=== PATIENT | female | born 1955 | race Caucasian/White ===

== ENCOUNTER → 2017-09-23 14:34 | Outpatient (CLI) | payer OTHER, SELFPAY ==
--- NOTE | 2017-09-23 | DI.MG.S_ITS ---
BILATERAL DIGITAL DIAGNOSTIC MAMMOGRAM 3D/2D: 09/23/2017 CLINICAL: Patient returns for 6 month follow up of right breast, due for bilateral exam. Comparison is made to exams dated: 01/27/2017 mammogram, 07/23/2016 mammogram, and 07/08/2016 mammogram - [facility]. The tissue of both breasts is heterogeneously dense. This may lower the sensitivity of mammography. Prior mammographic finding is no longer seen in the right breast. No significant masses, calcifications, or other findings are seen in either breast. IMPRESSION: NEGATIVE There is no mammographic evidence of malignancy. A 1 year screening mammogram is recommended. This exam was interpreted at Station ID: [id number]. NOTE: For mammograms, a report in lay terms will be sent to the patient. Approximately 15% of breast malignancies will not be visualized mammographically. In the management of a palpable breast mass, a negative mammogram must not discourage biopsy of a clinically suspicious lesion. Electronically Signed By: Umer valdez/loree:09/23/2017 15:56:39 letter sent: Normal Exam ACR BI-RADS Category 1: Negative 3341F
== END ==
PROVIDERS: PCP Family Medicine; Visit Provider Family Medicine
DX: R92.8 Other abnormal and inconclusive findings on diagnostic imaging of breast (principal)
CPT/HCPCS: 77066; G0279

== ENCOUNTER 2017-11-05 07:39 | Day surgery (SDC) | payer OTHER, SELFPAY ==
[2017-11-03 09:50] VITALS: BMI 26.2
[2017-11-05] VITALS (14 sets, daily range): BP systolic 70–113; BP diastolic 39–73; PULSE 32–72; RESP 12–17; TEMP 36.3–37; O2SAT 98–100; BMI 26.2
--- NOTE | 2017-11-05 | PATH_ITS ---
[facility] Accession Number: [id number] . 01 Material submitted: . ENDOMETRIAL POLYP AND ENDOMETRIAL CURRETAGE . 02 Diagnosis: Endometrial Curettings: Benign endometrial polyp, negative for atypia. [facility]/11/07/2017 . 02 Electronically signed: . Zac Valerio MD, Pathologist NPI- [id number] . 01 Gross description: . Received one formalin-filled container labeled with the patient's name and labeled endometrial polyp, endometrial curettage. The specimen consists of approximately a 0.5 cc aggregate of tissue and mucoid material, which is filtered, wrapped and entirely submitted in one cassette. ([facility] [place]:[id number]) /[facility] . 02 Pathologist provided ICD-10: N84.0 . 02 CPT . 470322 Performed at: 01 [facility] [address] [id number] MD Zak Zamora MD Phone: [phone] Performed at: 02 [facility] [address] [place] [id number] MD Simone Gray MD Phone: [phone]
[2017-11-05] MEDS: LACTATED RINGERS 1,000 ML 100 ML IV (08:10)
--- NOTE | 2017-11-05 08:33 | PM.PREOP ---
Pre-operative Note Interval Note Pre-op Check: Yes History & Physical Reviewed by Physician and Yes Exam Performed Changes: No
--- NOTE | 2017-11-05 08:44 | SUR.OPER ---
Lithotomy on padded OR bed, head on pillow, arms secured on padded arm boards at <90 degrees abduction. Legs secured in padded yellow fins stirrups.
[2017-11-05] MEDS: KETOROLAC 30 MG/ML VIAL IV (09:30)
--- NOTE | 2017-11-05 09:38 | PM.OP.1 ---
Operative Date/Time/Diagnoses Date of procedure: 11/05/17 Time of procedure: 09:38 Pre-op diagnosis: postmenopausal bleeding and polyp by ultrasound Post-op diagnosis: same Operative Notes Findings: small endometrial polyps Closure Type: not applicable Specimen(s): other ( endometrial polyps and curettage) Estimated Blood Loss (mL): 5 Blood products transfused: none Procedure in detail: The patient was brought to the operating room where she underwent general anesthesia. She was placed in low stirrups She was prepped and draped in usual sterile fashion with pulsatile stockings in place and functional, warming in place, no antibiotics were indicated. Her bladder was drained with in and out catheter. A single-tooth tenaculum was placed on the anterior lip of the cervix and the uterus dilated to #8 Hegar dilator. The hysteroscope was placed into the uterus with a sorbitol solution running and under constant suction. The resecting loop set at 80 W of cutting was used to resect the polyps down to the level of the endometrium. A endometrial curettage was performed. The polyp and the endometrial curettage was sent to pathology. The patient went to recovery room in good condition counts of instruments and sponges were correct. Estimated blood loss less than 5 mL. The sorbitol solution I=O approximately 2000 mL. Complications: none Condition: stable Disposition: same day surgery Plan for aftercare: routine post hysteroscopy
--- NOTE | 2017-11-05 10:04 | SUR.PHASEI ---
PT HAD EPISODE OF SYMPTOMATIC BRADYCARDIA - NAUSEAOUS, FEELING FAINT, HR IN 30'S, BP 70/39. DR PATE IN PACU AND CAME AND SAW PT, GLYCOPRYROLATE0.2MG GIVEN PER DR PATE, STAT EKG DONE. PRESENTLY PT STATES SHE IS FEELING BETTER, STATES SHE DOES STILL HAVE SOME MILD ABDOMINAL CRAMPING, AND SLIGHT NAUSEA. DR WHEATLEY IN TO SEE PT AND CHECK EKG.
== END 2017-11-05 11:01 | disposition home or self-care (01) ==
PROVIDERS: PCP Family Medicine; Visit Provider Specialist
PROC: 0UDB8ZZ Extraction of Endometrium, Via Natural or Artificial Opening Endoscopic (ICD-10-PCS; CPT 58558; principal; 2017-11-05 08:45)
DX: N84.0 Polyp of corpus uteri (principal)
CPT/HCPCS: 58558; 93005; 93010; J1100; J1885; J2405; J2704; J3010

== ENCOUNTER 2017-11-25 07:38 | Day surgery (SDC) | payer OTHER, SELFPAY ==
[2017-11-25 08:07] VITALS: BP 97/63; PULSE 65; RESP 16; TEMP 36.5; O2SAT 100; BMI 23.7
[2017-11-25] MEDS: SODIUM CHLORIDE 0.9% 1,000 ML 200 ML IV ×2 (09:15→11:23)
[2017-11-25] MEDS: ATROPINE 0.4 MG/ML VIAL 0.25 MG IV (09:41)
--- NOTE | 2017-11-25 09:51 | PM.HP.1 ---
History of Present Illness Date Patient Seen: 11/25/17 Time Patient Seen: 09:51 Chief complaint: colonoscopy 56036 Narrative: The patient is a woman here for screening colonoscopy. Her last exam was over 10 years ago. Patient History Medical History Hypotension due to hypovolemia (Acute) Postmenopausal bleeding (Acute) Surgical History History of dilatation and curettage (Acute) Family & Social History Family History: Reviewed 11/25/17 by Cuong Arciniega MD Social History: household members spouse Tobacco & Substance use: Smoking Status Never smoker alcohol intake current Substance Use Type does not use Meds Home Medications Medication Instructions Recorded Confirmed Type bupropion HCl 150 mg PO BID #0 09/25/12 10/22/17 History lamotrigine 100 mg PO BEDTIME #0 11/13/16 11/05/17 History [ESTRADIOL PELLETS] ID #0 10/02/17 10/02/17 History [TESTOSTERONE PELLETS] ID #0 10/02/17 10/02/17 History Allergies Allergy/AdvReac Type Severity Reaction Status Date / Time Penicillins [PENICILLINS] Allergy Unknown Verified 10/22/17 14:41 Review of Systems Review of Systems Patient had recent surgery and had apparently a vasovagal event. All systems reviewed & are unremarkable except as noted in HPI and below Exam Vital Signs (past 8 hours): - 11/25/17 08:07 Temperature 97.7 F Pulse Rate 65 Respiratory Rate 16 Blood Pressure 97/63 Pulse Oximetry 100 Oxygen Delivery Method Room Air Narrative Exam Narrative: Operative no apparent distress. Her lungs are clear to auscultation no rales or rhonchi heart regular rate and rhythm no murmur gallop abdomen is soft nontender without mass patient's IV was clotted off. I had to replace it and in so doing she became vasovagal. She was given 0.4 of atropine with immediate response. She is alert and oriented and never had syncope. Assessment & Plan Plan: Assessment/Plan Narrative: Patient for screening colonoscopy. She is highly sensitive to pain and anxiety. She had a vasovagal event with near syncope with blood pressures in the 60s systolic. She is presently back at baseline. We will have anesthesia involved to provide deep sedation with decreased pain levels so that we can proceed safely. I have discussed the procedure with the patient including risks of bleeding, perforation which would necessitate a major operation, failure to find removal lesions and the potential tattoo. She appears to understand and wishes to proceed.
--- NOTE | 2017-11-25 09:55 | SUR.PREOP ---
Pt's IV clotted off. Dr. Arciniega at bedside, restarting IV. While IV re-start attempt pt began to vaso vegal. HR and BP dropped, pt became diaphoretic but did not loose conciousness. I came to the bedside at this time and was able to restart an IV in the right Forearm. Pt received a dose of atropine by verbal order by Dr. Arciniega. Pt placed in trendelenberg. Pt on continous monitor, shortly after atropine dose pt's VS began to normalize. Pt returned to a flat laying position, a liter of fluid was given via IV and pt stayed on continuous monitor. No rhythm changes noted on EKG. CBG checked and pt was 85. Pt with spouse at bedside and call light on hand. Will continue to monitor closely. EKG strip printed and placed in pt's chart.
--- NOTE | 2017-11-25 10:07 | PM.PREOP ---
Pre-operative Note Interval Note Pre-op Check: Yes History & Physical exam performed today by Physician Changes: No ASA Class (for procedural sedation): II
--- NOTE | 2017-11-25 10:37 | SUR.OPER ---
Some abdominal pressure required to advance the scope to her cecum.
--- NOTE | 2017-11-25 11:06 | PM.OP.ENDO ---
Operative Date/Time/Diagnoses Date of procedure: 11/25/17 Time of procedure: 11:07 Pre-op diagnosis: Screening examination. Last exam 10 years ago. Post-op diagnosis: same (Large internal hemorrhoids without ulceration.) Procedure & Clinicians Study performed: Colonoscopy Same procedure as scheduled: Yes Indications: Screening Surgeon: Cuong Arciniega Procedure Notes SCOAP/Timeout: Performed Procedure in detail: The patient was placed in the left lateral decubitus position and underwent IV sedation directed by the surgeon consisting of fentanyl and Versed. Digital exam was remarkable for decreased sphincter tone.. The scope was inserted.The scope was retroflexed in the rectum. The appearance was[remarkable for very large hemorrhoids.]. The scope was then advanced through the rectum into the sigmoid, descending, transverse, and ascending colon. No lesions were seen. It was very difficult to reach the cecum. Patient had a stiffener inserted, was repositioned, pressure was applied. The scope was brought out multiple times and ultimately we were able to reach the cecum.. The cecum was reached identified by the ileocecal valve and the appendiceal opening. The ileocecal valve was[successfully] cannulated. The terminal ileum was normal in appearance. The scope was gradually brought out. No Polyps were found. The scope was removed and the patient tolerated the procedure well. Overall, the colon appeared to be elongated with significant looping of the scope making the entire procedure quite difficult. Scope withdrawal time: Greater than 6 min Sedation minutes: 0 Findings: internal hemorrhoids Specimen(s): none sent Complications: none Recommendations: Colonscopy in 10 years Plan for aftercare: Follow-up as needed Follow up: as needed Disposition: PACU
[2017-11-25 11:09] VITALS: BP 88/56; PULSE 77; RESP 16; TEMP 36.2; O2SAT 100
[2017-11-25 11:14] VITALS: BP 83/55; PULSE 82; RESP 16; O2SAT 100
[2017-11-25 11:19] VITALS: BP 92/60; PULSE 88; RESP 16; O2SAT 93
[2017-11-25 11:27] VITALS: BP 95/65; PULSE 85; RESP 14; TEMP 36.2; O2SAT 95
[2017-11-25 11:32] VITALS: BP 103/65; PULSE 88; RESP 16; TEMP 36.1; O2SAT 96
== END 2017-11-25 11:50 | disposition home or self-care (01) ==
PROVIDERS: PCP Family Medicine; Visit Provider Specialist
PROC: 0DJD8ZZ Inspection of Lower Intestinal Tract, Via Natural or Artificial Opening Endoscopic (ICD-10-PCS; CPT 45378; principal; 2017-11-25 08:45)
DX: Z12.11 Encounter for screening for malignant neoplasm of colon (principal); K64.8 Other hemorrhoids; I10 Essential (primary) hypertension
CPT/HCPCS: 45378; J0461; J2704; J3010

== ENCOUNTER → 2018-01-22 13:17 | Outpatient (CLI) | payer OTHER, SELFPAY ==
[2018-01-22 14:41] LABS: Free T3, Triiodothyronine Free 2.53 pg/mL (2.77-5.27); Free T4, Direct Thyroxine 0.87 ng/dL (0.78-2.19)
[2018-01-22 14:55] LABS: Thyroid Stimulating Hormone 1.76 uIU/mL (0.47-4.68)
[2018-01-22 15:05] LABS: Vitamin D 25 Hydroxy (D3) 44.2 ng/mL (30.0-100.0)
[2018-01-28 14:29] LABS: Triiodothyronine T3 Reverse 21 ng/dL (8-25)
== END ==
PROVIDERS: PCP Family Medicine; Visit Provider Specialist
DX: R53.83 Other fatigue (principal)
CPT/HCPCS: 36415; 82306; 84439; 84443; 84481; 84482

== ENCOUNTER → 2018-10-06 11:03 | Outpatient (CLI) | payer OTHER, SELFPAY ==
--- NOTE | 2018-10-06 | DI.MG.S_ITS ---
BILATERAL DIGITAL SCREENING MAMMOGRAM 3D/2D WITH CAD: 10/06/2018 CLINICAL: Routine screening. Comparison is made to exams dated: 09/23/2017 mammogram, 01/27/2017 mammogram, 07/23/2016 mammogram, 07/08/2016 mammogram, 07/03/2015 mammogram, and 07/01/2014 mammogram - [facility]. The tissue of both breasts is heterogeneously dense. This may lower the sensitivity of mammography. Current study was also evaluated with a Computer Aided Detection (CAD) system. No significant masses, calcifications, or other findings are seen in either breast. There has been no significant interval change. IMPRESSION: NEGATIVE There is no mammographic evidence of malignancy. A 1 year screening mammogram is recommended. This exam was interpreted at Station ID: [id number]. NOTE: For mammograms, a report in lay terms will be sent to the patient. Approximately 15% of breast malignancies will not be visualized mammographically. In the management of a palpable breast mass, a negative mammogram must not discourage biopsy of a clinically suspicious lesion. Electronically Signed By: Luis bailey/loree:10/06/2018 19:20:36 letter sent: Normal Exam ACR BI-RADS Category 1: Negative 3341F
== END ==
PROVIDERS: PCP Family Medicine; Visit Provider Family Medicine
DX: Z12.31 Encounter for screening mammogram for malignant neoplasm of breast (principal)
CPT/HCPCS: 77063; 77067

== ENCOUNTER → 2018-10-07 12:07 | Outpatient (CLI) | payer OTHER, SELFPAY ==
[2018-10-07 16:56] LABS: Progesterone, Total 0.68 ng/mL
[2018-10-07 17:12] LABS: Estradiol, Total 50.4 pg/mL
[2018-10-10 21:50] LABS: Testosterone Free 1.1 pg/mL (0.1-6.4); Testosterone Total 21 ng/dL (2-45)
== END ==
PROVIDERS: PCP Family Medicine; Visit Provider Specialist
DX: N95.0 Postmenopausal bleeding (principal); N95.1 Menopausal and female climacteric states
CPT/HCPCS: 36415; 82670; 84144; 84402; 84403

== ENCOUNTER → 2018-11-04 11:39 | Outpatient (CLI) | payer OTHER, SELFPAY ==
--- NOTE | 2018-11-04 | DI.RAD.S_ITS ---
PROCEDURE: XR CHEST 2V INDICATIONS: COUGH TECHNIQUE: 2 views of the chest were acquired. COMPARISON: None. FINDINGS: Surgical changes and devices: None. Lungs and pleura: Lungs are clear. No pleural effusions or pneumothorax. Mediastinum: Mediastinal contours are normal. Heart size is normal. Bones and chest wall: No suspicious bony abnormalities. Soft tissues appear unremarkable. IMPRESSION: Normal for age, source of current cough symptoms is not seen. Dictated by: Corwin Workman M.D. on 11/04/2018 at 11:58 Approved by: Corwin Workman M.D. on 11/04/2018 at 11:58
== END ==
PROVIDERS: PCP Family Medicine; Visit Provider Family Medicine
DX: R05 Cough (principal)
CPT/HCPCS: 71046

== ENCOUNTER → 2018-11-13 12:43 | Outpatient (CLI) | payer OTHER, SELFPAY ==
--- NOTE | 2018-11-20 16:30 | PM.PFT.1 ---
Pulmonary Function Test Referral & Results Date Patient Seen: 11/13/18 Requesting provider: Alberto Curry Results: The spirometry demonstrates an FVC of 5.29 L which is 118% of predicted. The FEV1 was measured at 3.93 L which is 114% of predicted. The FEV1/FVC ratio was 74 which is 95% of predicted. No bronchodilator was administered Lung volumes show an SVC of 4.94 L which is 125% of predicted. The diffusing capacity was measured at 29.59 which is 81% of predicted. No hemoglobin value was provided, so no correction for potential anemia could be made, if appropriate. Interpretation: This study demonstrates normal spirometry There may be a minimal reduction in diffusing capacity
== END ==
PROVIDERS: PCP Family Medicine; Visit Provider Family Medicine
DX: R05 Cough (principal)
CPT/HCPCS: 94010; 94726; 94729

== ENCOUNTER → 2019-03-23 09:08 | Outpatient (CLI) | payer OTHER, SELFPAY ==
--- NOTE | 2019-03-23 | DI.RAD.S_ITS ---
PROCEDURE: FL BARIUM SWALLOW W SPEECH INDICATIONS: Dysphagia, oropharyngeal phase TECHNIQUE: Examination was conducted in conjunction with speech pathology per standard protocol. In the lateral projection, filming was performed of the patient swallowing. AP projection filming may also be performed with patient swallowing. COMPARISON: [employer] [facility], US, US PELVIC COMPLETE, 01/13/2019, 17:07. FINDINGS: Function: The oral preparatory phase appears normal, with proper containment. The subsequent oral propulsive phase, pharyngeal phase, and esophageal phase of swallowing also appear normal with all proffered substances. Equivocal laryngotracheal penetration on the initial antegrade consistency. No laryngeal aspiration. No pathologic vallecular pooling. Morphology: No cricopharyngeal bar is identified. No cervical esophageal webs. No Zenker's diverticulum. No strictures. Mild irregularity in the mid esophagus. IMPRESSION: 1. Equivocal laryngeal penetration. 2. Mild mid esophageal irregularity. A double contrast esophagram or upper endoscopy is suggested for further evaluation. 3. Please see separate speech pathologist's report. Dictated by: Chery Campbell M.D. on 03/23/2019 at 17:06 Approved by: Chery Campbell M.D. on 03/23/2019 at 17:08
--- NOTE | 2019-03-31 17:16 | ST.SWALLOW ---
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 Zac Sneed Reason for Referral Chronic cough Setting Setting Outpatient Care Patient Information Identification Type Name,ID Card,Other Patient History This 63-yr-old female is familiar to the clinician from outpatient therapy targeting chronic cough, Paradoxical Vocal Fold Movement/ Laryngospasm. Modified Barium Swallow Study was recommended to evaluate swallow function and safety and possible contribution to pt's symptoms. Subjective Observations The pt arrived on time and verbalized understanding of MBS procedure. She followed all instructions and tolerated the procedure well. Patient Positioning Position View Lat-A/P Imaging Lateral View Textures Administered Trials Presented Thin Liquid via Spoon,Thin Liquid via Cup,[place] Liquid via Spoon,[place] Liquid via Cup,Honey Liquid via Spoon, Dysphagia Blenderized Textures ,Regular Textures Oral Phase Source: MBSIMP (TM) (C) Bolus Specific Scoring Grid Lip Closure No Impairment (WNL) Tongue Control During Bolus Hold No Impairment (WNL) Bolus Prep/Mastication No Impairment (WNL) Bolus Transport/Lingual Motion No Impairment (WNL) A/P Lingual Propulsion Delay No Oral Residue Minimal Impairment Residue Clearing No Impairment (WNL) Nasal Regurgitation No Additional Oral Phase Observations Oral phase WNL. Minimal oral residue clears with subsequent swallow. Pharyngeal Phase Source: MBSIMP (TM) (C) Bolus Specific Scoring Grid Soft Palate Elevation No Impairment (WNL) Tongue Base Strength/Range of Motion Mild Impairment Residue Along the Tongue Base Yes: Minimal Clearance of Residue Along Tongue Base No Impairment (WNL) Laryngeal Elevation No Impairment (WNL) Anterior Hyoid Movement Minimal Impairment Epiglottic Range of Motion No Impairment (WNL) Vallecular Residue Yes: Trace to mild, liquids only Clearance of Vallecular Residue Minimal Impairment Laryngeal Vestibular Closure No Impairment (WNL) Pharyngeal Stripping Wave Moderate Impairment Pharyngeal Contraction No Impairment (WNL) Posterior Pharyngeal Wall Residue No Upper Esophageal Sphincter Opening No Impairment (WNL) Residue in the Pyriform Sinuses Yes: Trace to mild, liquids only Clearance of Residue in the Pyriform Minimal Impairment Sinuses Esophageal Clearance Upright Position Mild Impairment Pharyngoesophageal Backflow Observed Yes Additional Pharyngeal Phase Observations Mild-moderate impairment secondary to mildly reduced anterior hyoid movement and base of tongue strength, moderately reduced pharyngeal stripping wave. This allows for mild residue at base of tongue, vallecula and pyriform sinuses. The pt did cough periodically throughout the study in the absence of penetration or aspiration. She did not experience an episode of paradoxical VF movement or laryngospasm. A/P View Textures Administered Trials Presented Thin Liquid via Cup,[place] Liquid via Cup,Dysphagia Blenderized Textures,Barium Tablet A/P View Observations Pharyngeal Contraction No Impairment (WNL) Esophageal Function Slowed Clearing,Poor Motility, Reverse Peristalsis Esophageal Clearance Upright Position Mild Impairment Esophageal Observations Esophageal Function Dysmotility observed at mid esophagus restricting flow of pudding and barium tablet. Backflow observed. Barium tablet passed with 2-3 swallow of thin liquid. Clinical Impressions Dysphagia Type Mild Pharyngeal Dysphagia Findings Mild-moderate impairment secondary to mildly reduced anterior hyoid movement and base of tongue strength, moderately reduced pharyngeal stripping wave. This allows for mild residue at base of tongue, vallecula and pyriform sinuses. No trigger of PVFM/ Laryngospasm elicited. Dysmotility and reverse peristalsis observed mid esophagus, impeding flow of pudding and barium tablet. Question GERD/LPR contribution to PVFM/Laryngospasm episodes. Recommend GI referral for Barium Swallow Study/ Esophagram and pH testing for assessment of GERD/LPR. Rehabilitation Potential Good Patient Appropriate for Therapy Yes: Continue outpatient therapy Recommendations Diet Liquids Order Thin Diet Order Regular Medication Recommendation As Tolerated Aspiration Precautions Recommended Precautions Upright at 90 Degrees,Small Bites/Sips Treatment Plan Therapy Recommendations Outpatient Speech Therapy Additional Therapy Recommendations Continue outpatient therapy, incorporating swallow exercises Recommended Referrals GI Consult Additional Recommended Referrals Esophagram and pH assessment for GERD/LPR Compensatory Strategies Recommendations Sitting Upright (90 deg) Short Term Goals Pt will complete exercises to increase strength, coordination and ROM of swallow musculature to improve function and reduce risk of aspiration and PVFM/ Laryngospasm episodes. Half-Way Goals Pt will tolerate regular textures and thin liquids safely. Reduce frequency and intensity of PVFM/Laryngospasm episodes . Placement Recommendation After Discharge Home
== END ==
PROVIDERS: Family Provider Family Medicine; PCP Family Medicine; Visit Provider Internal Medicine Pulmonary Disease
DX: R13.12 Dysphagia, oropharyngeal phase (principal)
CPT/HCPCS: 74230; 92611

== ENCOUNTER 2019-08-11 14:30 | Outpatient (RCR) | payer OTHER, SELFPAY ==
--- NOTE | 2019-02-09 18:03 | ST.OPIE ---
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 With one exception, all episodes have coincided with a tickle in her throat which then leads to coughing and the subsequent stridor. Once it occurred during food intake in which she feels she may have swallowed wrong, which triggered the cough and subsequent stridor. Episodes last up to 5 minutes, during which the pt attempts to stay calm until they subside and she can breathe normally again . She states she has normal levels of stress and anxiety, and episodes have never occurred during times when these levels have been high. Nor has she experienced episodes while exercising. She reported walking a consistent route almost every day that includes one slight to moderate hill. She stated she does get short of breath more than she would like, but has never experienced an episode while walking it. The pt reports having life- long nasal congestion and, as a result, primarily breathes through her mouth. She did undergo pulmonary function testing on 11/13/18, which revealed normal spirometry. During the test, while exhaling quickly and completely, the pt did experience a trigger, resulting in a stridor episode . [place] Language(s) Spoken in the Home Afghan Previous Therapy Previous Speech-Language Therapy No Subjective Subjective The pt arrived on time and provided case history supplemental to medical records. Evaluation focused on behavioral analysis and perceptual vocal assessment. - Laryngeal Performance Breath Support Breath Support At Rest Abdominal,Thoracic,Mixed Breath Support Conversation Abdominal,Thoracic,Mixed Speaks on Room Air Yes Resonance Nasal Resonance Normal Therapeutic Techniques Other Tactics Silent cough and hard swallow to minimize or avoid coughing and eliminate trigger (tickle in throat). Diaphragmatic relaxed breathing techniques and coordination breath with steps when walking to reduce laryngeal tension and reduce frequency and intensity of stridor episodes. Findings Findings Mild-Moderate Impairment Observations During the evaluation, the pt coughed intermittently. One time she felt that an episode may be coming on. With verbal instruction, the pt performed hard swallow in an attempt to eliminate the trigger. This was unsuccessful, and the pt did cough. Again with verbal instruction, she initiated diaphragmatic relaxed breathing (slowly in through the nose and slowly out on /s/) and was able to maintain adequate breath support until coughing and the tickle in her throat subsided and she resumed normal breathing. The pt's voice was perceived to be WNL. She had no complaints of impaired vocal quality, difficulty producing voice or being heard or understood by others. Acoustic measurements may be made during treatment if appropriate. Voice/Resonance Assessment Assessment The pt's descriptions of stridor episodes and their onset/trigger appear to be more consistent with laryngospasm than with paradoxical vocal fold movement (PVFM), although research sometimes refers to these terms as interchangeable. In my experience and understanding, PVFM tends to occur in situations of high stress, anxiety, or during exercise and last for extensive periods of time, which the pt denies. Laryngospasm tends to result from other less consistent or predictable triggers, such as the pt's throat tickle and cough, and last for shorter periods of time, as experienced by the pt (up to 5 min). Regardless, treatment in either case addresses breathing techniques and control in order to reduce hypersensitivity of afferent nerve signals and eliminate a trained condition (hypersensitivity). Using diaphragmatic breathing, the pt was able to avoid an episode during today's evaluation, indicating stimulability for such training. Prognosis Rehabilitation Potential Excellent - Recommendations Treatment Recommended Yes Treatment Frequency/Duration 1x/wk for 5 wks; taper thereafter as necessary Placement Recommendation Home Therapy Recommendations Reduction of laryngospasm trigger; Breathing techniques to reduce frequency and intensity of episodes; Ongoing pt education and assessment. Short Term Goals 1. The pt will perform diaphragmatic breathing in structured tasks to increase breath control and minimize stridor episodes. 2. The pt will perform alternative coughing strategies to reduce or eliminate laryngospasm trigger and cough. 3. The pt will participate in evaluation of breathing with walking/exercise and of vocal hygiene with additional goals to be determined as indicated. Skilled Nursing Goals 1. The pt will perform alternative coughing strategies and breathing techniques upon sensation of laryngospasm onset and/or during episodes in 80% of opportunities to minimize/ eliminate trigger and laryngospasm episodes, as measured by pt report and clinician judgment. 2. The pt will report reduction in laryngospasm frequency and intensity, using learned techniques. Patient/Caregiver Education Patient/Family Education Described results of evaluation,Patient Understanding,Patient Demonstration,Patient Needs More Info Vocally Abusive Behavior Behavior Rating Mouth Breathing Always Coughing/Sneezing Loudly Occasionally
--- NOTE | 2019-02-24 18:34 | ST.OPTN ---
Visit Care Team Role Provider Type Alberto Curry MD Primary Care Provider Physician Address: [address] [place] [address], [address], [place], [address] Zac Sneed MD Attending Provider Non-Staff Address: [address] [place] [address], [address] ELECTRICAL MAINTENANCE MAN Treatment Note ELECTRICAL MAINTENANCE MAN Treatment Note Start: 02/03/19 08:29 Freq: Status: Active Protocol: Document 02/24/19 17:57 CONSTANTINE (Rec: 02/24/19 17:57 CONSTANTINE [id number]) Speech Pathology Treatment Note Session Time Visit Start Time 14:35 Visit Stop Time 15:30 Total Visit Minutes 50 General Information General Information Pt is a 63-yr-old female who has experienced stridor with inhalation on several occasions over the last 2 years. With one exception, all episodes have coincided with a tickle in her throat which then leads to coughing and the subsequent stridor. Once it occurred during food intake in which she feels she may have swallowed wrong, which triggered the cough and subsequent stridor. Episodes last up to 5 minutes, during which the pt attempts to stay calm until they subside and she can breathe normally again . She states she has normal levels of stress and anxiety, and episodes have never occurred during times when these levels have been high. Nor has she experienced episodes while exercising. She reported walking a consistent route almost every day that includes one slight to moderate hill. She stated she does get short of breath more than she would like, but has never experienced an episode while walking it. The pt reports having life- long nasal congestion and, as a result, primarily breathes through her mouth. She did undergo pulmonary function testing on 11/13/18, which revealed normal spirometry. During the test, while exhaling quickly and completely, the pt did experience a trigger, resulting in a stridor episode . Subjective Observations/Patient Presentation The pt arrived on time. She reported difficulty performing alternative cough behaviors ( silent cough, hard swallow) and stated that they did not resolve her symptoms. She reported frequently producing food particles with cough periodically in the day, not necessarily immediately following intake. She also reported sticking sensation at base of throat and/or upper esophageal area (pointed to chest). She was concerned about airway protection and that swallow impairment may be contributing to her frequent coughing and had questions regarding a/p of swallow. Chief Complaint(s) Swallowing Additional Areas of Concern Chronic Cough/PVFM/ Laryngospasm Rehab Expectation/Goals: Patient Goals Eliminate symptoms of difficulty breathing Objective Short Term Goals 1. The pt will perform diaphragmatic breathing in structured tasks to increase breath control and minimize stridor episodes. 2. The pt will perform alternative coughing strategies to reduce or eliminate laryngospasm trigger and cough. 3. The pt will participate in evaluation of breathing with walking/exercise and of vocal hygiene with additional goals to be determined as indicated. Snf Goals 1. The pt will perform alternative coughing strategies and breathing techniques upon sensation of laryngospasm onset and/or during episodes in 80% of opportunities to minimize/ eliminate trigger and laryngospasm episodes, as measured by pt report and clinician judgment. 2. The pt will report reduction in laryngospasm frequency and intensity, using learned techniques. Treatment Activities Education was provided to the pt verbally and with animated video presentation RE anatomy of swallow mechanism, normal and impaired swallow function, and assessment via Modified Barium Swallow Study. Discussed aspiration risks and precautions and agreed that MBSS will provide the most thorough evaluation of the pt' s swallow to determine airway protection, risk of aspiration , and possible contribution to cough. Request for orders was faxed to pt's MD following tx session. Education was also provided RE behavioral modifications for cough suppression via article published by [employer]. During session, the pt exhbited cough trigger x3 and was minimally successful in suppressing with hard swallow. Assessment Patient Response to Treatment Fair Rehab Potential Good Impairments Identified Dysphagia,Vocal Quality Assessment of Improvement The pt was responsive to education presented today. All questions were answered. She has not been responsive to behavioral modifications to manage cough, and it appears food residual may be entering airway and/or not clearing pharynx with swallow. Agreed to pursue MBSS for evaluation of swallow and possible contribution to cough. Orders have been requested. Reviewed with Patient Goals,Progress Being Made,Home Exercise Program Patient/Caregiver Understanding Excellent Plan Therapeutic Contents Client Education,Home Exercise Program,Swallowing/Feeding, Voice Training Provided Patient/Caregiver Instruction Home Exercise Program,Plan of Care,Questions/Concerns Therapy Recommendations Continue with Current Program
--- NOTE | 2019-03-08 17:47 | ST.OPTN ---
Visit Care Team Role Provider Type Alberto Curry MD Primary Care Provider Physician Address: [address] [place] [address], [address], [place], [address] Zac Sneed MD Attending Provider Non-Staff Address: [address] [place] [address], [id number] STAFF TRAINER Treatment Note STAFF TRAINER Treatment Note Start: 02/03/19 08:29 Freq: Status: Active Protocol: Document 03/02/19 17:32 CONSTANTINE (Rec: 03/03/19 17:32 CONSTANTINE [id number]) Speech Pathology Treatment Note Session Time Visit Start Time 15:30 Visit Stop Time 16:20 Total Visit Minutes 50 Visit Information Visit Number 2 Plan of Care Dates 02/02/19 - 05/06/19 Insurance Information [employer] Next Note Type Next Note Type Treatment Note General Information General Information Pt is a 63-yr-old female who has experienced stridor with inhalation on several occasions over the last 2 years. With one exception, all episodes have coincided with a tickle in her throat which then leads to coughing and the subsequent stridor. Once it occurred during food intake in which she feels she may have swallowed wrong, which triggered the cough and subsequent stridor. Episodes last up to 5 minutes, during which the pt attempts to stay calm until they subside and she can breathe normally again . She states she has normal levels of stress and anxiety, and episodes have never occurred during times when these levels have been high. Nor has she experienced episodes while exercising. She reported walking a consistent route almost every day that includes one slight to moderate hill. She stated she does get short of breath more than she would like, but has never experienced an episode while walking it. The pt reports having life- long nasal congestion and, as a result, primarily breathes through her mouth. She did undergo pulmonary function testing on 11/13/18, which revealed normal spirometry. During the test, while exhaling quickly and completely, the pt did experience a trigger, resulting in a stridor episode . Subjective Observations/Patient Presentation The pt arrived on time. No new complaints. Chief Complaint(s) Swallowing,Voice Additional Areas of Concern Chronic Cough/PVFM/ Laryngospasm Rehab Expectation/Goals: Patient Goals Eliminate symptoms of difficulty breathing Objective Short Term Goals 1. The pt will perform diaphragmatic breathing in structured tasks to increase breath control and minimize stridor episodes. 2. The pt will perform alternative coughing strategies to reduce or eliminate laryngospasm trigger and cough. 3. The pt will participate in evaluation of breathing with walking/exercise and of vocal hygiene with additional goals to be determined as indicated. Optical Technician Goals 1. The pt will perform alternative coughing strategies and breathing techniques upon sensation of laryngospasm onset and/or during episodes in 80% of opportunities to minimize/ eliminate trigger and laryngospasm episodes, as measured by pt report and clinician judgment. 2. The pt will report reduction in laryngospasm frequency and intensity, using learned techniques. Treatment Activities Education was provided to the pt verbally and with demonstration RE diaphragmatic breathing and forward focus resonance as treatment strategies to reduce laryngeal tension and subsequent trigger of symptoms. Pt improved from clavicular breathing to diaphragmatic breathing over course of session and benefited from elevating book at diaphragm in supine position and tactile and visual biofeedback (hands on belly and chest, visual observation via mirror). With continued guidance and instruction she was responsive to initial training in forward focus resonance, able to produce /m/ and CV syllables while maintaining tickle at lips. Needs reinforcement. Assessment Patient Response to Treatment Good Rehab Potential Good Impairments Identified Dysphagia,Vocal Quality Progress Towards Goals Good Progress Assessment of Improvement The pt was responsive to education and initial training presented today. She benefits from biofeedback. Both diaphragmatic breathing and forward focus resonance need reinforcement. Reviewed with Patient Goals,Progress Being Made,Home Exercise Program Patient/Caregiver Understanding Excellent Plan Therapeutic Contents Client Education,Home Exercise Program,Swallowing/Feeding, Voice Training Provided Patient/Caregiver Instruction Home Exercise Program,Plan of Care,Questions/Concerns Therapy Recommendations Continue with Current Program
--- NOTE | 2019-03-09 18:05 | ST.OPTN ---
Visit Care Team Role Provider Type Alberto Curry MD Primary Care Provider Physician Address: [address] [place] [address], [address], [place], [address] Zac Sneed MD Attending Provider Non-Staff Address: [address] [place] [address], [id number] GAME TECHNICIAN Treatment Note GAME TECHNICIAN Treatment Note Start: 02/03/19 08:29 Freq: Status: Active Protocol: Document 03/09/19 17:54 CONSTANTINE (Rec: 03/09/19 18:05 CONSTANTINE [id number]) Speech Pathology Treatment Note Session Time Visit Start Time 15:30 Visit Stop Time 16:25 Total Visit Minutes 55 Visit Information Visit Number 3/ Plan of Care Dates 02/02/19 - 05/06/19 Insurance Information Next Performance Next Note Type Next Note Type Treatment Note General Information General Information Pt is a 63-yr-old female who has experienced stridor with inhalation on several occasions over the last 2 years. With one exception, all episodes have coincided with a tickle in her throat which then leads to coughing and the subsequent stridor. Once it occurred during food intake in which she feels she may have swallowed wrong, which triggered the cough and subsequent stridor. Episodes last up to 5 minutes, during which the pt attempts to stay calm until they subside and she can breathe normally again . She states she has normal levels of stress and anxiety, and episodes have never occurred during times when these levels have been high. Nor has she experienced episodes while exercising. She reported walking a consistent route almost every day that includes one slight to moderate hill. She stated she does get short of breath more than she would like, but has never experienced an episode while walking it. The pt reports having life- long nasal congestion and, as a result, primarily breathes through her mouth. She did undergo pulmonary function testing on 11/13/18, which revealed normal spirometry. During the test, while exhaling quickly and completely, the pt did experience a trigger, resulting in a stridor episode . Subjective Observations/Patient Presentation The pt arrived on time. No new complaints and no episodes of PVFM/laryngospasm since last session. Had questions related to forward focus tasks, which were answered during the session. Orders and insurance authorization for MBSS are received and MBSS was scheduled for 03/23/19 at 9:30 am. Chief Complaint(s) Swallowing,Voice Additional Areas of Concern Chronic Cough/PVFM/ Laryngospasm Rehab Expectation/Goals: Patient Goals Eliminate symptoms of difficulty breathing Objective Short Term Goals 1. The pt will perform diaphragmatic breathing in structured tasks to increase breath control and minimize stridor episodes. 2. The pt will perform alternative coughing strategies to reduce or eliminate laryngospasm trigger and cough. 3. The pt will participate in evaluation of breathing with walking/exercise and of vocal hygiene with additional goals to be determined as indicated. Waste Salvager Goals 1. The pt will perform alternative coughing strategies and breathing techniques upon sensation of laryngospasm onset and/or during episodes in 80% of opportunities to minimize/ eliminate trigger and laryngospasm episodes, as measured by pt report and clinician judgment. 2. The pt will report reduction in laryngospasm frequency and intensity, using learned techniques. Treatment Activities Continued training of diaphragmatic breathing with education related to A&P of respiratory musculature, deep breathing in stationary position and while walking. Cough was triggered x1 in walking task, which appeared to be from chest congestion vs laryngeal hypersensitivity. Did not evolve into PVFM/ larygospasm episode. Pt demonstrated improved control of respiratory muscle movement for deep breathing. Education provided RE GERD/LPR in response to pt questions. The pt does not endorse symptoms other than cough and throat clearing, which often result in chest congestion vs laryngeal tickle or other sensitivity. GERD/LPR is not suspected as etiology of pt's symptoms. Continued training pt in forward focus resonance to minimize laryngeal tension and potential hypersensitivity to minimize cough and PVFM/ laryngospasm symptoms. Pt performed tasks using /m/ in isolation and CV syllables. She was able to alternate between forward and back voicing, demonstrating understanding of target productions. All questions were answered and instructions /guidelines were provided in writing for home practice. Assessment Patient Response to Treatment Good Rehab Potential Good Impairments Identified Dysphagia,Vocal Quality Additional Impairments Identified PVFM/Laryngospasm Progress Towards Goals Good Progress Assessment of Overall Progress Improving Assessment of Improvement The pt demonstrated improved understanding of diaphragmatic breathing and forward focus resonance, with improved ability to perform both. Pt's symptoms do not appear to be consistent with GERD/LPR. Will continue tx targeting reduction of laryngeal tension and sensitivity to reduce cough and subsequent PVFM/ Laryngospasm symptoms. MBSS scheduled for further evaluation of swallow function and potential contribution to pt's symptoms. Reviewed with Patient Goals,Progress Being Made,Home Exercise Program Patient/Caregiver Understanding Excellent Plan Therapeutic Contents Client Education,Home Exercise Program,Swallowing/Feeding, Voice Training Additional Areas of Treatment PVFM/Laryngospasm Provided Patient/Caregiver Instruction Home Exercise Program,Plan of Care,Questions/Concerns Therapy Recommendations Continue with Current Program
--- NOTE | 2019-04-21 17:29 | ST.OPTN ---
Visit Care Team Role Provider Type Alberto Curry MD Primary Care Provider Physician Address: [address] [place] [address], [address], [place], [address] Zac Sneed MD Attending Provider Non-Staff Address: [address] [place] [address], [id number] SPEEDER OPERATOR Treatment Note SPEEDER OPERATOR Treatment Note Start: 02/03/19 08:29 Freq: Status: Active Protocol: Document 04/20/19 17:05 CONSTANTINE (Rec: 04/21/19 17:29 CONSTANTINE [id number]) Speech Pathology Treatment Note Session Time Visit Start Time 15:30 Visit Stop Time 16:30 Total Visit Minutes 60 Visit Information Visit Number 4 Plan of Care Dates 02/02/19 - 05/06/19 Insurance Information [facility] Treatment Setting Outpatient Care Visit Type Note Type Treatment Note Next Note Type Next Note Type Treatment Note General Information General Information Pt is a 63-yr-old female who has experienced stridor with inhalation on several occasions over the last 2 years. With one exception, all episodes have coincided with a tickle in her throat which then leads to coughing and the subsequent stridor. Once it occurred during food intake in which she feels she may have swallowed wrong, which triggered the cough and subsequent stridor. Episodes last up to 5 minutes, during which the pt attempts to stay calm until they subside and she can breathe normally again . She states she has normal levels of stress and anxiety, and episodes have never occurred during times when these levels have been high. Nor has she experienced episodes while exercising. She reported walking a consistent route almost every day that includes one slight to moderate hill. She stated she does get short of breath more than she would like, but has never experienced an episode while walking it. The pt reports having life- long nasal congestion and, as a result, primarily breathes through her mouth. She did undergo pulmonary function testing on 11/13/18, which revealed normal spirometry. During the test, while exhaling quickly and completely, the pt did experience a trigger, resulting in a stridor episode . Subjective Observations/Patient Presentation The pt returns after an extensive trip out of town to assist with her father who is in poor health. She was last seen on 03/23/19 in Radiology for Modified Barium Swallow Study which revealed largely normal oral and pharyngeal swallow but dysmotility noted upon screen of esophagus. Referral to GI has been recommended by this SPEEDER OPERATOR and Radiologist. No obvious trigger of laryngospasm was found. The pt reported that she has not heard from her PCP or the hospital regarding referral to GI and requested SPEEDER OPERATOR follow up with Dr. Sneed. After the session, I spoke with SAWYER Sorto, at Dr. Sneed's office who indicated having received MBS report with recommendation for GI referral but did not show records of referral having yet been made. She stated she would follow up with Dr. Sneed and call this SPEEDER OPERATOR with his response. The pt requested a copy of her MBSS report. After she signed Release of Information, it was provided to her. Chief Complaint(s) Swallowing,Voice Additional Areas of Concern Chronic Cough/PVFM/ Laryngospasm Rehab Expectation/Goals: Patient Goals Eliminate symptoms of difficulty breathing Objective Short Term Goals 1. The pt will perform diaphragmatic breathing in structured tasks to increase breath control and minimize stridor episodes. 2. The pt will perform alternative coughing strategies to reduce or eliminate laryngospasm trigger and cough. 3. The pt will participate in evaluation of breathing with walking/exercise and of vocal hygiene with additional goals to be determined as indicated. Fpc Goals 1. The pt will perform alternative coughing strategies and breathing techniques upon sensation of laryngospasm onset and/or during episodes in 80% of opportunities to minimize/ eliminate trigger and laryngospasm episodes, as measured by pt report and clinician judgment. 2. The pt will report reduction in laryngospasm frequency and intensity, using learned techniques. Treatment Activities Educated pt on MBSS results via review of MBS video. All of the pt's questions were answered. She verbalized understanding of results and recommendations and was in favor of initiating swallow exercises to improve mild pharyngeal deficits, which may help reduce potential hypersensitivity of pharyngeal tissue and manage GERD, if present. The pt informed that she has a history of vasovagal syncope an questioned if this could be related to possible referred vagal sensation. This seems like a reasonable question. This SPEEDER OPERATOR agreed to research the question and recommended the pt discuss the same with her PCP and/or GI if referral is made. Assessment Patient Response to Treatment Good Rehab Potential Good Impairments Identified Dysphagia,Vocal Quality Additional Impairments Identified PVFM/Laryngospasm Progress Towards Goals Good Progress Assessment of Overall Progress Improving Assessment of Improvement The pt was receptive and responsive to education and asked many good questions. Question if bolus stasis in esophagus may trigger referred vagal sensation to pharynx, triggering cough or if GERD/ LPR may be present and contributing. Plan to include swallow exercises to POC to decrease pharyngeal sensitivity and improve management of potential GERD/ LPR. Reviewed with Patient Goals,Progress Being Made,Home Exercise Program Patient/Caregiver Understanding Excellent Plan Therapeutic Contents Client Education,Home Exercise Program,Swallowing/Feeding, Voice Training Additional Areas of Treatment PVFM/Laryngospasm Provided Patient/Caregiver Instruction Home Exercise Program,Plan of Care,Questions/Concerns Therapy Recommendations Continue with Current Program
--- NOTE | 2019-05-11 17:14 | ST.OPTN ---
Visit Care Team Role Provider Type Alberto Curry MD Primary Care Provider Physician Address: [address] [place] [address], [address], [place], [address] Zac Sneed MD Attending Provider Non-Staff Address: [address] [place] [address], [address] PLASTIC AND RECONSTRUCTIVE SURGEON Treatment Note PLASTIC AND RECONSTRUCTIVE SURGEON Treatment Note Start: 02/03/19 08:29 Freq: Status: Active Protocol: Document 05/11/19 16:34 CONSTANTINE (Rec: 05/11/19 17:12 CONSTANTINE [email or web address]) Speech Pathology Treatment Note Session Time Visit Start Time 15:30 Visit Stop Time 16:25 Total Visit Minutes 55 Visit Information Visit Number 5 Plan of Care Dates 05/11/19 - 08/02/19 Insurance Information [facility] Treatment Setting Outpatient Care Visit Type Note Type Progress Note Next Note Type Next Note Type Treatment Note General Information General Information Pt is a 63-yr-old female who has experienced stridor with inhalation on several occasions over the last 2 years. With one exception, all episodes have coincided with a tickle in her throat which then leads to coughing and the subsequent stridor. Once it occurred during food intake in which she feels she may have swallowed wrong, which triggered the cough and subsequent stridor. Episodes last up to 5 minutes, during which the pt attempts to stay calm until they subside and she can breathe normally again . She states she has normal levels of stress and anxiety, and episodes have never occurred during times when these levels have been high. Nor has she experienced episodes while exercising. She reported walking a consistent route almost every day that includes one slight to moderate hill. She stated she does get short of breath more than she would like, but has never experienced an episode while walking it. The pt reports having life- long nasal congestion and, as a result, primarily breathes through her mouth. She did undergo pulmonary function testing on 11/13/18, which revealed normal spirometry. During the test, while exhaling quickly and completely, the pt did experience a trigger, resulting in a stridor episode . Pt underwent Modified Barium Swallow Study on 03/20/19, revealing largely normal oral and pharyngeal swallow but dysmotility noted upon screen of esophagus. Referral to GI was recommended by PLASTIC AND RECONSTRUCTIVE SURGEON and Radiologist. No obvious trigger of laryngospasm was found. Subjective Identification Type Name,ID Card Observations/Patient Presentation Pt arrived on time. She expressed concern that she has not been contacted for GI consultation, as recommended after MBS. This PLASTIC AND RECONSTRUCTIVE SURGEON again called Dr. John's office ( same phone call made during last session, 04/20) and spoke with Blessing who informed that no response from Dr. John was received to date and sent another request to him during the phone call. Chief Complaint(s) Swallowing,Voice Additional Areas of Concern Chronic Cough/PVFM/ Laryngospasm Rehab Expectation/Goals: Patient Goals Eliminate symptoms of difficulty breathing Objective Short Term Goals 1. The pt will perform diaphragmatic breathing in structured tasks to increase breath control and minimize stridor episodes. 2. The pt will perform alternative coughing strategies to reduce or eliminate laryngospasm trigger and cough. 3. The pt will participate in evaluation of breathing with walking/exercise and of vocal hygiene with additional goals to be determined as indicated. Skilled Nursing Goals 1. The pt will perform alternative coughing strategies and breathing techniques upon sensation of laryngospasm onset and/or during episodes in 80% of opportunities to minimize/ eliminate trigger and laryngospasm episodes, as measured by pt report and clinician judgment. 2. The pt will report reduction in laryngospasm frequency and intensity, using learned techniques. Treatment Activities Coordination of care with Dr. John's office. Education provided to pt RE GERD/LPR diet and lifestyle modifications. Recommended a 30-day trial following guidelines to see if any improvement to symptoms occurs . Pt in agreement. Educated and trained pt in swallow exercises including Cyndi, laryngeal elevation, base of tongue exercises. Pt returned demonstration. All questions answered. Instructions provided in writing. Assessment Patient Response to Treatment Good Rehab Potential Good Impairments Identified Dysphagia,Vocal Quality Additional Impairments Identified PVFM/Laryngospasm Progress Towards Goals Good Progress Assessment of Overall Progress Improving Assessment of Improvement Over course of treatment, the pt has demonstrated good understanding of all education provided and ability to minimize, but not eliminate, laryngospasm with use of deep breathing and hard swallow strategies. Today the pt was receptive and responsive to education and asked many good questions. Verbalized understanding of GERD/LPR education. Will continue to pursue GI consultation to address esophageal dysmotility observed during MBSS. Meanwhile, pt agreeable to a 30-day trial of GERD/LPR modifications. Demonstrated understanding of swallow exercises with some need for modifications. Will f/u at next session and adjust as necessary in hopes of reducing laryngospasm trigger with improved strength/coordination of swallow musculature. Reviewed with Patient Goals,Progress Being Made,Home Exercise Program Patient/Caregiver Understanding Excellent Plan Therapeutic Contents Client Education,Home Exercise Program,Swallowing/Feeding, Voice Training Additional Areas of Treatment PVFM/Laryngospasm Provided Patient/Caregiver Instruction Home Exercise Program,Plan of Care,Questions/Concerns Therapy Recommendations Continue with Current Program Suggested Referral GI
--- NOTE | 2019-05-19 18:22 | ST.OPTN ---
Visit Care Team Role Provider Type Alberto Curry MD Primary Care Provider Physician Address: [address] [place] [address], [address], [place], [address] Zac Sneed MD Attending Provider Non-Staff Address: [address] [place] [address], [address] ELECTRONIC SCALE TESTER Treatment Note ELECTRONIC SCALE TESTER Treatment Note Start: 02/03/19 08:29 Freq: Status: Active Protocol: Document 05/18/19 08:39 CONSTANTINE (Rec: 05/19/19 09:29 CONSTANTINE [email or web address]) Speech Pathology Treatment Note Session Time Visit Start Time 15:30 Visit Stop Time 16:20 Total Visit Minutes 50 Visit Information Visit Number 6 Plan of Care Dates 05/11/19 - 08/02/19 Insurance Information [facility] Treatment Setting Outpatient Care Visit Type Note Type Treatment Note Next Note Type Next Note Type Treatment Note General Information General Information Pt is a 63-yr-old female who has experienced stridor with inhalation on several occasions over the last 2 years. With one exception, all episodes have coincided with a tickle in her throat which then leads to coughing and the subsequent stridor. Once it occurred during food intake in which she feels she may have swallowed wrong, which triggered the cough and subsequent stridor. Episodes last up to 5 minutes, during which the pt attempts to stay calm until they subside and she can breathe normally again . She states she has normal levels of stress and anxiety, and episodes have never occurred during times when these levels have been high. Nor has she experienced episodes while exercising. She reported walking a consistent route almost every day that includes one slight to moderate hill. She stated she does get short of breath more than she would like, but has never experienced an episode while walking it. The pt reports having life- long nasal congestion and, as a result, primarily breathes through her mouth. She did undergo pulmonary function testing on 11/13/18, which revealed normal spirometry. During the test, while exhaling quickly and completely, the pt did experience a trigger, resulting in a stridor episode . Pt underwent Modified Barium Swallow Study on 03/20/19, revealing largely normal oral and pharyngeal swallow but dysmotility noted upon screen of esophagus. Referral to GI was recommended by ELECTRONIC SCALE TESTER and Radiologist. No obvious trigger of laryngospasm was found. Subjective Identification Type Name,ID Card Observations/Patient Presentation Pt arrived on time. She was contacted by Renetta at Dr. Sneed's office and informed that Dr. Sneed was unable to make referral to GI because he does not know whom to refer to and suggested referral be made through the pt's PCP. This clinician agreed to fax referral request to pt's PCP, Dr. Alberto Curry. Chief Complaint(s) Swallowing,Voice Additional Areas of Concern Chronic Cough/PVFM/ Laryngospasm Rehab Expectation/Goals: Patient Goals Eliminate symptoms of difficulty breathing Objective Short Term Goals 1. The pt will perform diaphragmatic breathing in structured tasks to increase breath control and minimize stridor episodes. 2. The pt will perform alternative coughing strategies to reduce or eliminate laryngospasm trigger and cough. 3. The pt will participate in evaluation of breathing with walking/exercise and of vocal hygiene with additional goals to be determined as indicated. Assisted Goals 1. The pt will perform alternative coughing strategies and breathing techniques upon sensation of laryngospasm onset and/or during episodes in 80% of opportunities to minimize/ eliminate trigger and laryngospasm episodes, as measured by pt report and clinician judgment. 2. The pt will report reduction in laryngospasm frequency and intensity, using learned techniques. Treatment Activities Consulted with pt RE medical team coordination to obtain esophagram and pH testing for GERD/LPR. Trained pt in CTAR, Shaker as alternative, and jaw opening exercises for laryngeal elevation. The pt had questions about other swallow exercises. All questions were answered and the pt demonstrated ability to perform all exercises. She was able to perform CTAR with 60-sec hold and 30 reps; Shaker with 30-sec hold and 12 reps. Assessment Patient Response to Treatment Good Rehab Potential Good Impairments Identified Dysphagia,Vocal Quality Additional Impairments Identified PVFM/Laryngospasm Progress Towards Goals Good Progress Assessment of Overall Progress Improving Assessment of Improvement The pt is progressing well in understanding and completing swallow exercises. Cough episodes have diminished but not been eliminated. She reported poor compliance with HEP this past week but expressed intention to improve in the weeks to come. Reviewed with Patient Goals,Progress Being Made,Home Exercise Program Patient/Caregiver Understanding Excellent Plan Therapeutic Contents Client Education,Home Exercise Program,Swallowing/Feeding, Voice Training Additional Areas of Treatment PVFM/Laryngospasm Provided Patient/Caregiver Instruction Home Exercise Program,Plan of Care,Questions/Concerns Therapy Recommendations Continue with Current Program Suggested Referral GI
--- NOTE | 2019-08-11 15:26 | ST.OPRE ---
Visit Care Team Role Provider Type Alberto Curry MD Primary Care Provider Physician Specialty: Family Practice Address: [address] [place] [address], [facility], [place], [address] Email: [email or web address] Zac Sneed MD Attending Provider Non-Staff Specialty: Pulmonology Address: [address] [place] [address], [id number] Email: Speech-Language Pathology Evaluation/Summary CUSTOMER CARE CONSULTANT Treatment Note Start: 02/03/19 08:29 Freq: Status: Active Protocol: Document 08/11/19 15:04 CONSTANTINE (Rec: 08/11/19 15:25 CONSTANTINE [id number]) Speech Pathology Treatment Note Session Time Visit Start Time 14:30 Visit Stop Time 15:05 Total Visit Minutes 35 Visit Information Visit Number 7 Plan of Care Dates 08/11/19 - 11/11/19 Insurance Information [facility] Treatment Setting Outpatient Care Visit Type Note Type Re-Evaluation Next Note Type Next Note Type Treatment Note General Information General Information Pt is a now 64-yr-old female who has experienced stridor with inhalation on several occasions over the last 2 years. With one exception, all episodes have coincided with a tickle in her throat which then leads to coughing and the subsequent stridor. Once it occurred during food intake in which she feels she may have swallowed wrong, which triggered the cough and subsequent stridor. Episodes last up to 5 minutes, during which the pt attempts to stay calm until they subside and she can breathe normally again . She states she has normal levels of stress and anxiety, and episodes have never occurred during times when these levels have been high. Nor has she experienced episodes while exercising. She reported walking a consistent route almost every day that includes one slight to moderate hill. She stated she does get short of breath more than she would like, but has never experienced an episode while walking it. The pt reports having life- long nasal congestion and, as a result, primarily breathes through her mouth. She did undergo pulmonary function testing on 11/13/18, which revealed normal spirometry. During the test, while exhaling quickly and completely, the pt did experience a trigger, resulting in a stridor episode . Pt underwent Modified Barium Swallow Study on 03/20/19, revealing largely normal oral and pharyngeal swallow but dysmotility noted upon screen of esophagus. Referral to GI was recommended by CUSTOMER CARE CONSULTANT and Radiologist. No obvious trigger of laryngospasm was found. Subjective Identification Type Name,ID Card Observations/Patient Presentation The pt returns to therapy with the reopening of Clinic since onset of COVID-19 crisis. She was last seen 05/18/19. She arrived on time and reported no laryngospasm/PVFM episodes since last treatment visit and improved swallow function. She stated she has not been completing exercises d/t lack of discipline, but intends to develop a schedule to include HEP tasks. The pt has plans for airline travel in September and requested a letter from the clinician informing of pt's chronic cough vs COVID cough symptoms. CUSTOMER CARE CONSULTANT will confirm such letter is within clinic policy and, if so, send to pt via email and US mail. The pt is also requesting the same from her PCP. Chief Complaint(s) Swallowing,Voice Additional Areas of Concern Chronic Cough/PVFM/ Laryngospasm Rehab Expectation/Goals: Patient Goals Eliminate symptoms of difficulty breathing Objective Short Term Goals 1. The pt will perform diaphragmatic breathing in structured tasks to increase breath control and minimize stridor episodes. 2. The pt will perform alternative coughing strategies to reduce or eliminate laryngospasm trigger and cough. 3. The pt will participate in evaluation of breathing with walking/exercise and of vocal hygiene with additional goals to be determined as indicated. Inside Sales Engineer Goals 1. The pt will perform alternative coughing strategies and breathing techniques upon sensation of laryngospasm onset and/or during episodes in 80% of opportunities to minimize/ eliminate trigger and laryngospasm episodes, as measured by pt report and clinician judgment. 2. The pt will report reduction in laryngospasm frequency and intensity, using learned techniques. Treatment Activities The pt expressed concern about continuing treatment in light of COVID-19. We discussed her progress to date and reviewed education and exercises provided to date. The pt verbalized understanding of all. We again discussed a trial period of modifications to diet and lifestyle for even one or two weeks, as the pt felt she would not be able to maintain for 30 days. She was agreeable to consider a shorter trial to see if modifications minimized symptoms. Discussed POC. Agreed that pt has demonstrated improvement and good understanding. Agreed to f/u x1 on 09/08/19, by which date the pt intends to have improved compliance and routine for HEP. If she feels she is unable to meet this goal or wishes to increase protection from potential COVID-19 exposure in the community, she will contact the clinician/clinic and request discharge. Assessment Patient Response to Treatment Good Rehab Potential Good Impairments Identified Dysphagia,Vocal Quality Additional Impairments Identified PVFM/Laryngospasm Progress Towards Goals Good Progress Assessment of Overall Progress Improving Assessment of Improvement The pt has made good progress with elimination of laryngospasm/PVFM episodes. Continues to experience chronic cough but with reduced frequency and severity. Swallowing is improving. Compliance with HEP has declined but the pt has plan to improve. Anticipate discharge from services within 1-2 visits. Reviewed with Patient Goals,Progress Being Made,Home Exercise Program Patient/Caregiver Understanding Excellent Plan Comment 1-2 visits Therapeutic Contents Client Education,Home Exercise Program,Swallowing/Feeding, Voice Training Additional Areas of Treatment PVFM/Laryngospasm Provided Patient/Caregiver Instruction Home Exercise Program,Plan of Care,Questions/Concerns Therapy Recommendations Continue with Current Program Suggested Referral GI
--- NOTE | 2019-09-27 13:53 | ST.OPDS ---
Visit Care Team Role Provider Type Alberto Curry MD Primary Care Provider Physician Address: [address] [place] [address], [address], [place], [address] Zac Sneed MD Attending Provider Non-Staff Address: [address] [place] [address], [id number] SPEECH COMMUNICATION PROFESSOR Treatment Note SPEECH COMMUNICATION PROFESSOR Treatment Note Start: 02/03/19 08:29 Freq: Status: Active Protocol: Document 09/27/19 13:45 CONSTANTINE (Rec: 09/27/19 13:53 CONSTANTINE [email or web address]) Speech Pathology Treatment Note Setting Treatment Setting Outpatient Care General Information General Information Pt is a now 64-yr-old female who has experienced stridor with inhalation on several occasions over the last 2 years. With one exception, all episodes have coincided with a tickle in her throat which then leads to coughing and the subsequent stridor. Once it occurred during food intake in which she feels she may have swallowed wrong, which triggered the cough and subsequent stridor. Episodes last up to 5 minutes, during which the pt attempts to stay calm until they subside and she can breathe normally again . She states she has normal levels of stress and anxiety, and episodes have never occurred during times when these levels have been high. Nor has she experienced episodes while exercising. She reported walking a consistent route almost every day that includes one slight to moderate hill. She stated she does get short of breath more than she would like, but has never experienced an episode while walking it. The pt reports having life- long nasal congestion and, as a result, primarily breathes through her mouth. She did undergo pulmonary function testing on 11/13/18, which revealed normal spirometry. During the test, while exhaling quickly and completely, the pt did experience a trigger, resulting in a stridor episode . Pt underwent Modified Barium Swallow Study on 03/20/19, revealing largely normal oral and pharyngeal swallow but dysmotility noted upon screen of esophagus. Referral to GI was recommended by SPEECH COMMUNICATION PROFESSOR and Radiologist. No obvious trigger of laryngospasm was found. Subjective Observations/Patient Presentation On 09/01/19, the pt sent an email request to be discharged from Speech Therapy services, stating she felt well equipped to continue HEP independently. This had been discussed in the previous treatment session, and this SPEECH COMMUNICATION PROFESSOR is in agreement that discharge is appropriate at this time. Chief Complaint(s) Swallowing,Voice Rehab Expectation/Goals: Patient Goals Eliminate symptoms of difficulty breathing Patient Knowledge/Awareness of SPEECH COMMUNICATION PROFESSOR Role Excellent in Treatment Objective Short Term Goals 1. The pt will perform diaphragmatic breathing in structured tasks to increase breath control and minimize stridor episodes. GOAL MET 2. The pt will perform alternative coughing strategies to reduce or eliminate laryngospasm trigger and cough. GOAL MET 3. The pt will participate in evaluation of breathing with walking/exercise and of vocal hygiene with additional goals to be determined as indicated. GOAL MET [facility] Goals 1. The pt will perform alternative coughing strategies and breathing techniques upon sensation of laryngospasm onset and/or during episodes in 80% of opportunities to minimize/ eliminate trigger and laryngospasm episodes, as measured by pt report and clinician judgment. GOAL MET 2. The pt will report reduction in laryngospasm frequency and intensity, using learned techniques. GOAL MET Assessment Patient Response to Treatment Good Impairments Identified Dysphagia,Vocal Quality Progress Towards Goals Good Progress Assessment of Overall Progress Improving Assessment of Improvement Over the course of treatment, the pt exhibited excellent understanding of all education and ability to perform all exercises and techniques. She has reported reduced, but not elimination of, laryngospasm/ chronic cough. She is intermittently benefited by alternative cough techniques. She demonstrates independence in HEP and compensatory strategies and has met goals of therapy. It is anticipated that ongoing practice of exercises and techniques will be necessary to maintain current function or improve. No further skilled intervention is warranted at this time. The pt is discharged from services. Plan Therapy Recommendations Discharge to Home Exercise Program
== END 2019-09-28 09:12 ==
LOC: SP 14:30
PROVIDERS: PCP Family Medicine; Visit Provider Internal Medicine Pulmonary Disease
DX: J38.3 Other diseases of vocal cords (principal)
CPT/HCPCS: 92507; 92524; 92526

== ENCOUNTER 2019-11-04 13:14 | Outpatient (CLI) | payer OTHER, SELFPAY | END 2019-11-04 15:45 | disposition home or self-care (01) | LOC: PHYS 13:14 | PROVIDERS: Family Provider Family Medicine; PCP Family Medicine; Referring Provider Family Medicine; Visit Provider Family Medicine | DX: M79.2 Neuralgia and neuritis, unspecified (principal) | CPT/HCPCS: 95886; 95912 ==

== ENCOUNTER → 2019-11-06 11:07 | Outpatient (CLI) | payer OTHER, SELFPAY ==
--- NOTE | 2019-11-06 | DI.MG.S_ITS ---
BILATERAL DIGITAL SCREENING MAMMOGRAM 3D/2D WITH CAD: 11/06/2019 Comparison is made to exams dated: 10/06/2018 mammogram, 09/23/2017 mammogram, 01/27/2017 mammogram, 07/23/2016 mammogram, and 07/08/2016 mammogram - [facility]. The tissue of both breasts is heterogeneously dense. This may lower the sensitivity of mammography. Current study was also evaluated with a Computer Aided Detection (CAD) system. There are possible new 0.3 cm grouped fine punctate calcifications in the right breast posterior depth superior region seen on the mediolateral oblique view only. No other significant masses, calcifications, or other findings are seen in either breast. IMPRESSION: INCOMPLETE: NEEDS ADDITIONAL IMAGING EVALUATION The possible new 0.3 cm grouped fine punctate calcifications in the right breast are indeterminate. Mediolateral and spot magnification views are recommended. This exam was interpreted at Station ID: [id number]. NOTE: For mammograms, a report in lay terms will be sent to the patient. Approximately 15% of breast malignancies will not be visualized mammographically. In the management of a palpable breast mass, a negative mammogram must not discourage biopsy of a clinically suspicious lesion. Electronically Signed By: Richard gauthier/loree:11/08/2019 08:07:55 letter sent: Additional Imaging Needed ACR BI-RADS Category 0: Incomplete [id number]
== END ==
PROVIDERS: Family Provider Family Medicine; PCP Family Medicine; Referring Provider Family Medicine; Visit Provider Family Medicine
DX: Z12.31 Encounter for screening mammogram for malignant neoplasm of breast (principal)
CPT/HCPCS: 77063; 77067

== ENCOUNTER → 2019-11-16 11:17 | Outpatient (CLI) | payer OTHER, SELFPAY ==
[2019-11-17 04:36] LABS: Homocysteine 8.3 umol/L (0.0-17.2)
[2019-11-17 16:09] LABS: Arsenic 1 ug/L (2-23); Mercury, Blood 2.5 ug/L (0.0-14.9)
[2019-11-18 20:10] LABS: Methylmalonic Acid,Serum 130 nmol/L (0-378)
== END ==
PROVIDERS: Family Provider Family Medicine; PCP Family Medicine; Referring Provider Family Medicine; Visit Provider Family Medicine
DX: M79.2 Neuralgia and neuritis, unspecified (principal)
CPT/HCPCS: 36415; 83090; 83825; 83921

== ENCOUNTER → 2019-12-23 12:45 | Outpatient (CLI) | payer OTHER, SELFPAY ==
--- NOTE | 2019-12-23 | DI.MG.S_ITS ---
UNILATERAL RIGHT DIGITAL DIAGNOSTIC MAMMOGRAM 3D/2D WITH ADDITIONAL VIEWS: 12/23/2019 CLINICAL: Additional evaluation requested from prior study. Comparison is made to exams dated: 11/06/2019 mammogram, 10/06/2018 mammogram, and 09/23/2017 mammogram - [facility]. The tissue of right breast is heterogeneously dense. This may lower the sensitivity of mammography. There are faint 0.3 cm grouped fine punctate calcifications in the right breast posterior depth superior region seen on the mediolateral oblique view only. These are seen in magnification LM views, but not distinctly localized in the CC projection. There are many other scattered similar calcifications in the right breast. No other significant masses or calcifications are seen in the breast. IMPRESSION: PROBABLY BENIGN The new 0.3 cm grouped calcifications in the right breast are probably benign. A follow-up right mammogram in 6 months is recommended to demonstrate stability. Findings and recommendations were conveyed to the patient at time of exam. This exam was interpreted at Station ID: [id number]. NOTE: For mammograms, a report in lay terms will be sent to the patient. Approximately 15% of breast malignancies will not be visualized mammographically. In the management of a palpable breast mass, a negative mammogram must not discourage biopsy of a clinically suspicious lesion. Electronically Signed By: Muna rodriguez/:12/23/2019 13:37:00 letter sent: Followup Recommended ACR BI-RADS Category 3: Probably benign [id number]
== END ==
PROVIDERS: Family Provider Family Medicine; PCP Family Medicine; Referring Provider Family Medicine; Visit Provider Family Medicine
DX: R92.8 Other abnormal and inconclusive findings on diagnostic imaging of breast (principal); R92.1 Mammographic calcification found on diagnostic imaging of breast
CPT/HCPCS: 77065; G0279

== ENCOUNTER 2020-10-13 09:00 | Outpatient (RCR) | payer OTHER, SELFPAY ==
--- NOTE | 2020-08-09 16:58 | PT.OIE ---
Current Diagnoses Pain in left hip (08/09/20) Past Medical History (Last Reviewed 11/25/17 @ 09:51 by Cuong Arciniega MD) Hypotension due to hypovolemia Postmenopausal bleeding Past Surgical History (Last Reviewed 11/25/17 @ 09:51 by Cuong Arciniega MD) History of dilatation and curettage Visit Care Team Role Provider Type Alberto Curry MD Attending Provider Physician Family Provider Primary Care Provider Referring Provider Specialty: [facility] Practice Address: [address] [place] [address], [facility] [place], [facility] Email: 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 Pt thinks she might hurt her hip while bending over to reach for her dog. She stated her pain is sharp located at L buttock which radiates to back of her L knee. Sitting, Stand to sit and bending over tend to aggravates her. She also noticed that WB on her LE such as standing on LLE also bothers her. However, standing or walking seem relieving at this point. Pt normally walk 3 milse a day with up and downhill prior to his injury. Pt went to see Dr. Curry and she was ruled out for hip OA. Prior Treatments and Tests Pt was diagnosed with peripheral neuropathy R>L 11/03= distal and symmertrical Current Functional Impairments (Reported) Functional Limitations- ADL's unable to sit for an hour stand to sit with caution unable to bend over and reach the floor Personal Factors Other Personal Factors That May Effect depression Therapy/Recovery osteopenia PT-OP-C Subjective Start: 08/09/20 16:24 Freq: Status: Active Protocol: Document 08/09/20 16:25 HH (Rec: 08/09/20 16:58 [email or web address]) Patient Questionnaires Lower Extremity Functional Scale LEFS Score 40 LEFS Impairment 40 to 59% Impaired (Score 32- 47) OP-PT Pain Assessment Location L hip Intensity 8 Description Radiating,Sharp,With Movement Frequency Frequent Pain Aggravating Factors Position,Changing Position,ADL 's,Activity,Sitting,Bending, Lifting Pain Alleviating Factors Inactivity,Lying Supine, Standing PT-OP-F Manual Assessment Start: 08/09/20 16:24 Freq: Status: Active Protocol: Document 08/09/20 16:25 HH (Rec: 08/09/20 16:58 [email or web address]) Manual Assessments Soft Tissue Assessment Soft Tissue Mobility Assessment significant hypertonicity at L piriformis mild hypertonicity at L lumbar paraspinals PT-OP-H Neuro Start: 08/09/20 16:24 Freq: Status: Active Protocol: Document 08/09/20 16:25 HH (Rec: 08/09/20 16:58 [email or web address]) Sensation Evaluation Gross Sensation Gross Sensation WNL Comments Summary Comments peripheral neuropathy noted mostly below ankle level. Pt stated no new sensation loss noted since this injury. Deep Tendon Reflex & Clonus Assessment Deep Tendon Reflex Bilateral Achilles Deep Tendon Reflex 2+ Normal Bilateral Patellar Deep Tendon Reflex 2+ Normal PT-OP-J Posture/Palpation/Skin Start: 08/09/20 16:24 Freq: Status: Active Protocol: Document 08/09/20 16:25 HH (Rec: 08/09/20 16:58 [email or web address]) Posture Evaluation Position Standing Weight Distribution Weight Shifted Right PT-OP-K Range of Motion Start: 08/09/20 16:24 Freq: Status: Active Protocol: Document 08/09/20 16:25 HH (Rec: 08/09/20 16:58 [email or web address]) Lumbar Spine Range of Motion Lumbar Spine Active Degrees Testing Position Standing Comments toe touch test= 16 inches from floor, with R trunk rotation d/t L hip radiating pain lateral flexion to R= 19 inches from floor, no increase in symptoms lateral flexion to L= 20 inches from floor, no increase in symptoms extension =shoulders over ankle, pain at L/s PT-OP-L Special Tests Start: 08/09/20 16:24 Freq: Status: Active Protocol: Document 08/09/20 16:25 (Rec: 08/09/20 16:58 [email or web address]) Special Tests Lumbar Spine Special Tests Straight Leg Raise Test Results +VE L Comments R= 90 no pain; L = 70 with pain Slump Test Results pain with neck flexion/ knee extension/ thoracic flexion Comments pain at L hip Hip Special Tests repeated extension Test Results pain reduced Comments centralized pain noted after repeated standing extension x10 radiating L hip pain with repeated flexion. SKY Test Results -ve Scour Test Test Results -VE Piriformis Test Results pain at L piriformis Comments but no neurological signs, or reproduced radiating pain PT-OP-M Strength Start: 08/09/20 16:24 Freq: Status: Active Protocol: Document 08/09/20 16:25 (Rec: 08/09/20 16:58 [email or web address]) Hip Strength Hip Manual Muscle Testing Right Flexion (L2) 4 Good Extension (S1) 4 Good Abduction 4 Good Adduction 4 Good Left Flexion (L2) 3+ Fair+ Extension (S1) 4- Good- Abduction 4- Good- Adduction 4- Good- PT-OP-Q Treatments Start: 08/09/20 16:24 Freq: Status: Active Protocol: Document 08/09/20 16:25 (Rec: 08/09/20 16:58 [email or web address]) Therapeutic Exercises Prone Exercises Kaycee method Prone Exercise Name level 1- level2 Reps/Minutes 2 mins each position Comments centralized pain noted. Pt david well PT-OP-T Assessment and Plan Start: 08/09/20 16:24 Freq: Status: Active Protocol: Document 08/09/20 16:25 (Rec: 08/09/20 16:58 [email or web address]) Physical Therapy Assessment Rehab Potential Rehabilitation Potential Excellent Evaluation Complexity Number of Personal Factors/Comorbidities 1-2 Number of Body Systems Impaired 1-2 Clinical Presentation at Evaluation Stable Impairments Impairments Activity Tolerance,Balance, Functional Activities, Functional Mobility,Gait,Pain, Posture,ROM,Sensation,Soft Tissue Mobility,Strength Goals hip flexion Impairment pt has difficulty lifting her L leg Short Term Goal (STG) pt will regain partial strength to be able to maintain single leg stance on RLE (L hip flexion) for 10 secodns STG Duration 4 weeks [facility]ci Goal (LTG) pt will regain full hip flexion strength and be able to get in and out of her car without using her UEs to assist LTG Duration 8 weeks pain Impairment radiating pain at L hip 8/10 Short Term Goal (STG) pt will have pain no more than 4/10 with sitting and stand to sit movements STG Duration 4 weeks Fci Goal (LTG) pt will have pain no more than 2/10 with lumbar flexion movements such as sitting, bending over activities. LTG Duration 8 weeks LEFS Impairment pt scores 40 on LEFS Short Term Goal (STG) pt will show improved functional mobility and strength by scoring >50 on LEFS STG Duration 4 weeks Fci Goal (LTG) pt will show improved fucntional mobility and strength by scoring >60 on LEFs LTG Duration 8 weeks Assessment Summary Assessment Donna is a 65 yo female here for radiating L hip pain since last fall. Upon assessment, pt presents lumbar radiculapthy d/t her radicular pain to L hip with lumbar flexion only. (+ve SLR, slump test) Although pt has peripheral neuropathy at baseline, there's no additional sensational loss/ motor loss that corresponds to a specific spinal level. Pt also tends to have reduced peripheral pain with repeated lumbar extension. Kaycee method might be an ideal option for her treatment plan. Will reassess her progress at next visit. Pt will benefit from skilled therapy to reduce her radicular pain and to regain her functional mobility and strength Physical Therapy Plan Frequency and Duration Frequency of Treatment 2x/Week Duration of Treatment 8 weeks Plan of Care Start Date 08/09/20 Plan of Care End Date 10/08/20 Therapeutic Interventions Therapeutic Interventions Balance Training,Gait Training ,Home Exercise Program,Joint Mobilizations,Manual Therapy, Neuromuscular Re-education, Patient/Caregiver Education, Self-Care/Home Management,Soft Tissue Mobilization,Taping, Therapeutic Activities, Therapeutic Exercises Modalities Biofeedback,Cold Pack/Ice Massage,Electric Stimulation, Hot Packs,Infrared Therapy, Iontophoresis,Traction- Mechanical Next Visit Focus/Plan Next Note Type Treatment Note Next Visit Plan recheck her kaycee HEP STM on piriformis progress kaycee as david traction if eneded
--- NOTE | 2020-08-09 16:58 | PT.OPPOC ---
Physical, Occupational & Speech Therapy At [facility] Current Diagnoses Pain in left hip (08/09/20) Visit Care Team Role Provider Type Alberto Curry MD Attending Provider Physician Family Provider Primary Care Provider Referring Provider Specialty: Family Practice Address: [address] [place] [address] [place], [address] Email: [email or web address] Plan Of Care PT-OP-T Assessment and Plan Start: 08/09/20 16:24 Freq: Status: Active Protocol: Document 08/09/20 16:25 HH (Rec: 08/09/20 16:58 HH [email or web address]) Physical Therapy Assessment Rehab Potential Rehabilitation Potential Excellent Evaluation Complexity Number of Personal Factors/Comorbidities 1-2 Number of Body Systems Impaired 1-2 Clinical Presentation at Evaluation Stable Impairments Impairments Activity Tolerance,Balance, Functional Activities, Functional Mobility,Gait,Pain, Posture,ROM,Sensation,Soft Tissue Mobility,Strength Goals hip flexion Impairment pt has difficulty lifting her L leg Short Term Goal (STG) pt will regain partial strength to be able to maintain single leg stance on RLE (L hip flexion) for 10 secodns STG Duration 4 weeks [facility] Goal (LTG) pt will regain full hip flexion strength and be able to get in and out of her car without using her UEs to assist LTG Duration 8 weeks pain Impairment radiating pain at L hip 8/10 Short Term Goal (STG) pt will have pain no more than 4/10 with sitting and stand to sit movements STG Duration 4 weeks Skatesman Goal (LTG) pt will have pain no more than 2/10 with lumbar flexion movements such as sitting, bending over activities. LTG Duration 8 weeks LEFS Impairment pt scores 40 on LEFS Short Term Goal (STG) pt will show improved functional mobility and strength by scoring >50 on LEFS STG Duration 4 weeks Skatesman Goal (LTG) pt will show improved fucntional mobility and strength by scoring >60 on LEFs LTG Duration 8 weeks Assessment Summary Assessment Donna is a 65 yo female here for radiating L hip pain since last fall. Upon assessment, pt presents lumbar radiculapthy d/t her radicular pain to L hip with lumbar flexion only. (+ve SLR, slump test) Although pt has peripheral neuropathy at baseline, there's no additional sensational loss/ motor loss that corresponds to a specific spinal level. Pt also tends to have reduced peripheral pain with repeated lumbar extension. Kaycee method might be an ideal option for her treatment plan. Will reassess her progress at next visit. Pt will benefit from skilled therapy to reduce her radicular pain and to regain her functional mobility and strength Physical Therapy Plan Frequency and Duration Frequency of Treatment 2x/Week Duration of Treatment 8 weeks Plan of Care Start Date 08/09/20 Plan of Care End Date 10/08/20 Therapeutic Interventions Therapeutic Interventions Balance Training,Gait Training ,Home Exercise Program,Joint Mobilizations,Manual Therapy, Neuromuscular Re-education, Patient/Caregiver Education, Self-Care/Home Management,Soft Tissue Mobilization,Taping, Therapeutic Activities, Therapeutic Exercises Modalities Biofeedback,Cold Pack/Ice Massage,Electric Stimulation, Hot Packs,Infrared Therapy, Iontophoresis,Traction- Mechanical Next Visit Focus/Plan Next Note Type Treatment Note Next Visit Plan recheck her kaycee HEP STM on piriformis progress kaycee as david traction if eneded Plan of Care Dates Plan of Care Start Date 08/09/20 Plan of Care End Date 10/08/20 Electronically Signed by: Jorge Cortes, PT 08/09/20 [id number] Please Sign and Return: I have reviewed this Plan of Care and certify that the skilled therapy services above are required to meet the patient?s needs. Physician Signature Date Printed Name and Credentials Clinical Instructor Signature Printed Name and Credentials
--- NOTE | 2020-08-11 12:15 | PT.OTN ---
Current Diagnoses Pain in left hip (08/11/20) Physical Therapy Treatment Note PT-OP-A Visit Information Start: 08/09/20 16:24 Freq: Status: Active Protocol: Document 08/11/20 10:34 HH (Rec: 08/11/20 12:14 [id number]) Out-Patient Physical Therapy Visit Information Visit Information Visit Type Treatment Note Visit Start Time 10:34 Visit Stop Time 11:15 Total Visit Minutes 41 Visit Number PT-OP-B Current Condition Start: 08/09/20 16:24 Freq: Status: Active Protocol: Document 08/09/20 16:25 HH (Rec: 08/09/20 16:58 HH [email or web address]) Current Condition History of Current Condition Onset Date 2019 Current Complaints L radiating hip pain, unable to bend over History of Current Condition Donna is a 65 yo female here for her ongoing L radiating hip pain since last fall. Pt thinks she might hurt her hip while bending over to reach for her dog. She stated her pain is sharp located at L buttock which radiates to back of her L knee. Sitting, Stand to sit and bending over tend to aggravates her. She also noticed that WB on her LE such as standing on LLE also bothers her. However, standing or walking seem relieving at this point. Pt normally walk 3 milse a day with up and downhill prior to his injury. Pt went to see Dr. Curry and she was ruled out for hip OA. Prior Treatments and Tests Pt was diagnosed with peripheral neuropathy R>L 11/03= distal and symmertrical Current Functional Impairments (Reported) Functional Limitations- ADL's unable to sit for an hour stand to sit with caution unable to bend over and reach the floor Personal Factors Other Personal Factors That May Effect depression Therapy/Recovery osteopenia PT-OP-C Subjective Start: 08/09/20 16:24 Freq: Status: Active Protocol: Document 08/11/20 10:34 HH (Rec: 08/11/20 12:14 [id number]) OP-PT Subjective Patient Comments Patient Comments Im doing okay so far i dont have any shooting pain while doing the extension exercises. PT-OP-F Manual Assessment Start: 08/09/20 16:24 Freq: Status: Active Protocol: Document 08/09/20 16:25 HH (Rec: 08/09/20 16:58 [email or web address]) Manual Assessments Soft Tissue Assessment Soft Tissue Mobility Assessment significant hypertonicity at L piriformis mild hypertonicity at L lumbar paraspinals PT-OP-H Neuro Start: 08/09/20 16:24 Freq: Status: Active Protocol: Document 08/09/20 16:25 HH (Rec: 08/09/20 16:58 [email or web address]) Sensation Evaluation Gross Sensation Gross Sensation WNL Comments Summary Comments peripheral neuropathy noted mostly below ankle level. Pt stated no new sensation loss noted since this injury. Deep Tendon Reflex & Clonus Assessment Deep Tendon Reflex Bilateral Achilles Deep Tendon Reflex 2+ Normal Bilateral Patellar Deep Tendon Reflex 2+ Normal PT-OP-J Posture/Palpation/Skin Start: 08/09/20 16:24 Freq: Status: Active Protocol: Document 08/09/20 16:25 HH (Rec: 08/09/20 16:58 [email or web address]) Posture Evaluation Position Standing Weight Distribution Weight Shifted Right PT-OP-K Range of Motion Start: 08/09/20 16:24 Freq: Status: Active Protocol: Document 08/09/20 16:25 HH (Rec: 08/09/20 16:58 [email or web address]) Lumbar Spine Range of Motion Lumbar Spine Active Degrees Testing Position Standing Comments toe touch test= 16 inches from floor, with R trunk rotation d/t L hip radiating pain lateral flexion to R= 19 inches from floor, no increase in symptoms lateral flexion to L= 20 inches from floor, no increase in symptoms extension =shoulders over ankle, pain at L/s PT-OP-L Special Tests Start: 08/09/20 16:24 Freq: Status: Active Protocol: Document 08/09/20 16:25 HH (Rec: 08/09/20 16:58 [email or web address]) Special Tests Lumbar Spine Special Tests Straight Leg Raise Test Results +VE L Comments R= 90 no pain; L = 70 with pain Slump Test Results pain with neck flexion/ knee extension/ thoracic flexion Comments pain at L hip Hip Special Tests repeated extension Test Results pain reduced Comments centralized pain noted after repeated standing extension x10 radiating L hip pain with repeated flexion. SKY Test Results -ve Scour Test Test Results -VE Piriformis Test Results pain at L piriformis Comments but no neurological signs, or reproduced radiating pain PT-OP-M Strength Start: 05/19/21 16:24 Freq: Status: Active Protocol: Document 08/09/20 16:25 HH (Rec: 08/09/20 16:58 HH [email or web address]) Hip Strength Hip Manual Muscle Testing Right Flexion (L2) 4 Good Extension (S1) 4 Good Abduction 4 Good Adduction 4 Good Left Flexion (L2) 3+ Fair+ Extension (S1) 4- Good- Abduction 4- Good- Adduction 4- Good- PT-OP-Q Treatments Start: 08/09/20 16:24 Freq: Status: Active Protocol: Document 08/11/20 10:34 HH (Rec: 08/11/20 12:14 [id number]) Therapeutic Exercises Supine Exercises tennis ballrelease Supine Exercise Name L piriformis Comments for HEP sciatic nerve glide Supine Exercise Name with knee extneison and DF Reps/Minutes 10 x2 Comments for HEP knee to chest Reps/Minutes 15sec stretch x5 Comments for HEP piriformis stretch Side left Reps/Minutes 15sec stretch x5 Prone Exercises child pose Reps/Minutes 10sec stretch x5 Comments from meckenzie level 2 extension to child pose Kaycee method Prone Exercise Name level 2 position , arm at Y position Reps/Minutes 10 sec each then into child pose Comments 2 pillows under hip, 1 pillow under ankles Sidelying Exercises clamshell Reps/Minutes 10x2 Comments for hep Manual Therapy Treatment Soft Tissue Mobilization glutes Body Location L glutes and piriformis Mobilization Type Myofascial Release Intensity/Depth Moderate Body Position Sidelying Comments most pain at piriformis Joint Mobilizations L hip Joint traction Grade III Body Position Supine Reps/Duration 10 sec hold x5 PT-OP-T Assessment and Plan Start: 08/09/20 16:24 Freq: Status: Active Protocol: Document 08/11/20 10:34 (Rec: 08/11/20 12:14 [id number]) Physical Therapy Assessment Goals hip flexion Impairment pt has difficulty lifting her L leg Short Term Goal (STG) pt will regain partial strength to be able to maintain single leg stance on RLE (L hip flexion) for 10 secodns STG Duration 4 weeks Half-Way Goal (LTG) pt will regain full hip flexion strength and be able to get in and out of her car without using her UEs to assist LTG Duration 8 weeks pain Impairment radiating pain at L hip 8/10 Short Term Goal (STG) pt will have pain no more than 4/10 with sitting and stand to sit movements STG Duration 4 weeks Half-Way Goal (LTG) pt will have pain no more than 2/10 with lumbar flexion movements such as sitting, bending over activities. LTG Duration 8 weeks LEFS Impairment pt scores 40 on LEFS Short Term Goal (STG) pt will show improved functional mobility and strength by scoring >50 on LEFS STG Duration 4 weeks Half-Way Goal (LTG) pt will show improved fucntional mobility and strength by scoring >60 on LEFs LTG Duration 8 weeks Assessment Summary Assessment Pt does not have radiating pain with lumbar extension but painful with lumbar flexion. Added child pose, knee to chest, nerve glide and tennis ball release to HEP. Physical Therapy Plan Frequency and Duration Frequency of Treatment 2x/Week Duration of Treatment 8 weeks Plan of Care Start Date 08/09/20 Plan of Care End Date 10/08/20 Therapeutic Interventions Therapeutic Interventions Balance Training,Gait Training ,Home Exercise Program,Joint Mobilizations,Manual Therapy, Neuromuscular Re-education, Patient/Caregiver Education, Self-Care/Home Management,Soft Tissue Mobilization,Taping, Therapeutic Activities, Therapeutic Exercises Modalities Biofeedback,Cold Pack/Ice Massage,Electric Stimulation, Hot Packs,Infrared Therapy, Iontophoresis,Traction- Mechanical Next Visit Focus/Plan Next Note Type Treatment Note Next Visit Plan recheck her kaycee HEP STM on piriformis progress kaycee as david traction if eneded
--- NOTE | 2020-08-16 12:08 | PT.OTN ---
Current Diagnoses Pain in left hip (08/16/20) Physical Therapy Treatment Note PT-OP-A Visit Information Start: 08/09/20 16:24 Freq: Status: Active Protocol: Document 08/16/20 10:33 HH (Rec: 08/16/20 12:08 [id number]) Out-Patient Physical Therapy Visit Information Visit Information Visit Type Treatment Note Visit Start Time 10:32 Visit Stop Time 11:15 Total Visit Minutes 43 Visit Number 3 PT-OP-B Current Condition Start: 08/09/20 16:24 Freq: Status: Active Protocol: Document 08/09/20 16:25 HH (Rec: 08/09/20 16:58 [email or web address]) Current Condition History of Current Condition Onset Date 2019 Current Complaints L radiating hip pain, unable to bend over History of Current Condition Donna is a 65 yo female here for her ongoing L radiating hip pain since last fall. Pt thinks she might hurt her hip while bending over to reach for her dog. She stated her pain is sharp located at L buttock which radiates to back of her L knee. Sitting, Stand to sit and bending over tend to aggravates her. She also noticed that WB on her LE such as standing on LLE also bothers her. However, standing or walking seem relieving at this point. Pt normally walk 3 milse a day with up and downhill prior to his injury. Pt went to see Dr. Curry and she was ruled out for hip OA. Prior Treatments and Tests Pt was diagnosed with peripheral neuropathy R>L 11/03= distal and symmertrical Current Functional Impairments (Reported) Functional Limitations- ADL's unable to sit for an hour stand to sit with caution unable to bend over and reach the floor Personal Factors Other Personal Factors That May Effect depression Therapy/Recovery osteopenia PT-OP-C Subjective Start: 08/09/20 16:24 Freq: Status: Active Protocol: Document 08/16/20 10:33 HH (Rec: 08/16/20 12:08 [id number]) OP-PT Subjective Patient Comments Patient Comments Im been feeling better so far . Its more like soreness now but i do feel more painful today. Patient Reported Progress Improving PT-OP-F Manual Assessment Start: 08/09/20 16:24 Freq: Status: Active Protocol: Document 08/09/20 16:25 HH (Rec: 08/09/20 16:58 [email or web address]) Manual Assessments Soft Tissue Assessment Soft Tissue Mobility Assessment significant hypertonicity at L piriformis mild hypertonicity at L lumbar paraspinals PT-OP-H Neuro Start: 08/09/20 16:24 Freq: Status: Active Protocol: Document 08/09/20 16:25 HH (Rec: 08/09/20 16:58 [email or web address]) Sensation Evaluation Gross Sensation Gross Sensation WNL Comments Summary Comments peripheral neuropathy noted mostly below ankle level. Pt stated no new sensation loss noted since this injury. Deep Tendon Reflex & Clonus Assessment Deep Tendon Reflex Bilateral Achilles Deep Tendon Reflex 2+ Normal Bilateral Patellar Deep Tendon Reflex 2+ Normal PT-OP-J Posture/Palpation/Skin Start: 08/09/20 16:24 Freq: Status: Active Protocol: Document 08/09/20 16:25 HH (Rec: 08/09/20 16:58 [email or web address]) Posture Evaluation Position Standing Weight Distribution Weight Shifted Right PT-OP-K Range of Motion Start: 08/09/20 16:24 Freq: Status: Active Protocol: Document 08/09/20 16:25 HH (Rec: 08/09/20 16:58 [email or web address]) Lumbar Spine Range of Motion Lumbar Spine Active Degrees Testing Position Standing Comments toe touch test= 16 inches from floor, with R trunk rotation d/t L hip radiating pain lateral flexion to R= 19 inches from floor, no increase in symptoms lateral flexion to L= 20 inches from floor, no increase in symptoms extension =shoulders over ankle, pain at L/s PT-OP-L Special Tests Start: 08/09/20 16:24 Freq: Status: Active Protocol: Document 08/09/20 16:25 HH (Rec: 08/09/20 16:58 [email or web address]) Special Tests Lumbar Spine Special Tests Straight Leg Raise Test Results +VE L Comments R= 90 no pain; L = 70 with pain Slump Test Results pain with neck flexion/ knee extension/ thoracic flexion Comments pain at L hip Hip Special Tests repeated extension Test Results pain reduced Comments centralized pain noted after repeated standing extension x10 radiating L hip pain with repeated flexion. SKY Test Results -ve Scour Test Test Results -VE Piriformis Test Results pain at L piriformis Comments but no neurological signs, or reproduced radiating pain PT-OP-M Strength Start: 08/09/20 16:24 Freq: Status: Active Protocol: Document 08/09/20 16:25 HH (Rec: 08/09/20 16:58 [email or web address]) Hip Strength Hip Manual Muscle Testing Right Flexion (L2) 4 Good Extension (S1) 4 Good Abduction 4 Good Adduction 4 Good Left Flexion (L2) 3+ Fair+ Extension (S1) 4- Good- Abduction 4- Good- Adduction 4- Good- PT-OP-Q Treatments Start: 08/09/20 16:24 Freq: Status: Active Protocol: Document 08/16/20 10:33 HH (Rec: 08/16/20 12:08 [id number]) Therapeutic Exercises Supine Exercises bridging Equipment Used yellow band Reps/Minutes 8 x2 (3 sec at top) Comments cues on gluteal engagement. sciatic nerve glide Supine Exercise Name with knee extneison and DF Reps/Minutes 10 x2 Comments for HEP knee to chest Side bilateral Reps/Minutes 15sec stretch x5 Comments for HEP piriformis stretch Side left Reps/Minutes 15sec stretch x5 Prone Exercises cat camel Reps/Minutes 10 x 2 Comments cues on lumbar segmental flexion child pose Reps/Minutes 10sec stretch x5 Comments from [facility] level 2 extension to child pose Manual Therapy Treatment Soft Tissue Mobilization glutes Body Location L glutes and piriformis Mobilization Type Myofascial Release Intensity/Depth Moderate Body Position Sidelying Comments most pain at piriformis Joint Mobilizations L hip Joint traction Grade III Body Position Supine Reps/Duration 10 sec hold x5 PT-OP-T Assessment and Plan Start: 08/09/20 16:24 Freq: Status: Active Protocol: Document 08/16/20 10:33 HH (Rec: 08/16/20 12:08 [id number]) Physical Therapy Assessment Goals hip flexion Impairment pt has difficulty lifting her L leg Short Term Goal (STG) pt will regain partial strength to be able to maintain single leg stance on RLE (L hip flexion) for 10 secodns STG Duration 4 weeks Senior Living Goal (LTG) pt will regain full hip flexion strength and be able to get in and out of her car without using her UEs to assist LTG Duration 8 weeks pain Impairment radiating pain at L hip 8/10 Short Term Goal (STG) pt will have pain no more than 4/10 with sitting and stand to sit movements STG Duration 4 weeks Senior Living Goal (LTG) pt will have pain no more than 2/10 with lumbar flexion movements such as sitting, bending over activities. LTG Duration 8 weeks LEFS Impairment pt scores 40 on LEFS Short Term Goal (STG) pt will show improved functional mobility and strength by scoring >50 on LEFS STG Duration 4 weeks [employer] Goal (LTG) pt will show improved fucntional mobility and strength by scoring >60 on LEFs LTG Duration 8 weeks Assessment Summary Assessment Pt reports with less radiating pain since last week but slightly irritated today. Conitnue to focuse on restoring her lumbar ROM today and added lumbar and hip stabilization ex today. Pt david session well. Physical Therapy Plan Frequency and Duration Frequency of Treatment 2x/Week Duration of Treatment 8 weeks Plan of Care Start Date 08/09/20 Plan of Care End Date 10/08/20 Therapeutic Interventions Therapeutic Interventions Balance Training,Gait Training ,Home Exercise Program,Joint Mobilizations,Manual Therapy, Neuromuscular Re-education, Patient/Caregiver Education, Self-Care/Home Management,Soft Tissue Mobilization,Taping, Therapeutic Activities, Therapeutic Exercises Modalities Biofeedback,Cold Pack/Ice Massage,Electric Stimulation, Hot Packs,Infrared Therapy, Iontophoresis,Traction- Mechanical Next Visit Focus/Plan Next Note Type Treatment Note Next Visit Plan recheck her danica HEP JASMEET on piriformis progress danica as david traction if eneded
--- NOTE | 2020-08-18 14:33 | PT.OTN ---
Current Diagnoses Pain in left hip (08/18/20) Physical Therapy Treatment Note PT-OP-A Visit Information Start: 08/09/20 16:24 Freq: Status: Active Protocol: Document 08/18/20 13:47 SP (Rec: 08/18/20 16:33 SP [id number]) Out-Patient Physical Therapy Visit Information Visit Information Visit Type Treatment Note Visit Note Pt leaving town next week for few week to help her mom that fell, requested add more appts after ones scheduled to make up missing. PN end September by PT for coverage added appt if need. Visit Start Time 13:47 Visit Stop Time 14:33 Total Visit Minutes 46 Visit Number 4/ Number of [employer]AMBO[employer] CAPTAIN Visits 1 Evaluation Information Evaluation Date 08/09/20 Precautions Precautions bruise easily depression osteopenia peripheral neuropathy PT-OP-B Current Condition Start: 08/09/20 16:24 Freq: Status: Active Protocol: Document 08/09/20 16:25 HH (Rec: 08/09/20 16:58 HH [email or web address]) Current Condition History of Current Condition Onset Date 2019 Current Complaints L radiating hip pain, unable to bend over History of Current Condition Donna is a 65 yo female here for her ongoing L radiating hip pain since last fall. Pt thinks she might hurt her hip while bending over to reach for her dog. She stated her pain is sharp located at L buttock which radiates to back of her L knee. Sitting, Stand to sit and bending over tend to aggravates her. She also noticed that WB on her LE such as standing on LLE also bothers her. However, standing or walking seem relieving at this point. Pt normally walk 3 milse a day with up and downhill prior to his injury. Pt went to see Dr. Curry and she was ruled out for hip OA. Prior Treatments and Tests Pt was diagnosed with peripheral neuropathy R>L 11/03= distal and symmertrical Current Functional Impairments (Reported) Functional Limitations- ADL's unable to sit for an hour stand to sit with caution unable to bend over and reach the floor Personal Factors Other Personal Factors That May Effect depression Therapy/Recovery osteopenia PT-OP-C Subjective Start: 08/09/20 16:24 Freq: Status: Active Protocol: Document 08/18/20 13:47 SP (Rec: 08/18/20 16:33 SP [id number]) OP-PT Subjective Patient Comments Patient Comments I am ususally [place] after PT but in a good way, thinks exercises are working. Most pain when bring knee to chest motion or the initial sitting onto my left hip. Patient Reported Progress Improving PT-OP-F Manual Assessment Start: 08/09/20 16:24 Freq: Status: Active Protocol: Document 08/09/20 16:25 HH (Rec: 08/09/20 16:58 [email or web address]) Manual Assessments Soft Tissue Assessment Soft Tissue Mobility Assessment significant hypertonicity at L piriformis mild hypertonicity at L lumbar paraspinals PT-OP-H Neuro Start: 08/09/20 16:24 Freq: Status: Active Protocol: Document 08/09/20 16:25 HH (Rec: 08/09/20 16:58 [email or web address]) Sensation Evaluation Gross Sensation Gross Sensation WNL Comments Summary Comments peripheral neuropathy noted mostly below ankle level. Pt stated no new sensation loss noted since this injury. Deep Tendon Reflex & Clonus Assessment Deep Tendon Reflex Bilateral Achilles Deep Tendon Reflex 2+ Normal Bilateral Patellar Deep Tendon Reflex 2+ Normal PT-OP-J Posture/Palpation/Skin Start: 08/09/20 16:24 Freq: Status: Active Protocol: Document 08/09/20 16:25 HH (Rec: 08/09/20 16:58 [email or web address]) Posture Evaluation Position Standing Weight Distribution Weight Shifted Right PT-OP-K Range of Motion Start: 08/09/20 16:24 Freq: Status: Active Protocol: Document 08/09/20 16:25 HH (Rec: 08/09/20 16:58 [email or web address]) Lumbar Spine Range of Motion Lumbar Spine Active Degrees Testing Position Standing Comments toe touch test= 16 inches from floor, with R trunk rotation d/t L hip radiating pain lateral flexion to R= 19 inches from floor, no increase in symptoms lateral flexion to L= 20 inches from floor, no increase in symptoms extension =shoulders over ankle, pain at L/s PT-OP-L Special Tests Start: 08/09/20 16:24 Freq: Status: Active Protocol: Document 08/09/20 16:25 HH (Rec: 08/09/20 16:58 [email or web address]) Special Tests Lumbar Spine Special Tests Straight Leg Raise Test Results +VE L Comments R= 90 no pain; L = 70 with pain Slump Test Results pain with neck flexion/ knee extension/ thoracic flexion Comments pain at L hip Hip Special Tests repeated extension Test Results pain reduced Comments centralized pain noted after repeated standing extension x10 radiating L hip pain with repeated flexion. SKY Test Results -ve Scour Test Test Results -VE Piriformis Test Results pain at L piriformis Comments but no neurological signs, or reproduced radiating pain PT-OP-M Strength Start: 08/09/20 16:24 Freq: Status: Active Protocol: Document 08/09/20 16:25 HH (Rec: 08/09/20 16:58 HH [email or web address]) Hip Strength Hip Manual Muscle Testing Right Flexion (L2) 4 Good Extension (S1) 4 Good Abduction 4 Good Adduction 4 Good Left Flexion (L2) 3+ Fair+ Extension (S1) 4- Good- Abduction 4- Good- Adduction 4- Good- PT-OP-Q Treatments Start: 08/09/20 16:24 Freq: Status: Active Protocol: Document 08/18/20 13:47 SP (Rec: 08/18/20 16:33 SP [id number]) Therapeutic Exercises Supine Exercises bridging Equipment Used yellow band Reps/Minutes 10 x2 (10 sec at top) Comments cues on gluteal engagement. piriformis stretch Supine Exercise Name knee cross to opposite shld feels better Side left Reps/Minutes 15 sec stretch x5 Prone Exercises cat camel Reps/Minutes 10 x 2 Comments cues on lumbar segmental flexion child pose Reps/Minutes 10sec stretch x5 Comments from meckenzie level 2 extension to child pose Kaycee method Prone Exercise Name level 2 position elbow then up on hands, arm at Y position Reps/Minutes 10 sec each then into child pose Comments 2 pillows under hip, 1 pillow under ankles Sidelying Exercises clamshell Reps/Minutes 10x3 HEP review Manual Therapy Treatment Soft Tissue Mobilization glutes Body Location L glutes and piriformis Mobilization Type Myofascial Release Intensity/Depth Moderate Body Position Sidelying Comments most pain at piriformis Joint Mobilizations L hip Joint traction ( long leg pull, lat/ inf hip mob) Grade III Body Position Supine Reps/Duration 30 e ach x2 PT-OP-T Assessment and Plan Start: 08/09/20 16:24 Freq: Status: Active Protocol: Document 08/18/20 13:47 SP (Rec: 05/28/21 16:33 SP [id number]) Physical Therapy Assessment Goals hip flexion Impairment pt has difficulty lifting her L leg Short Term Goal (STG) pt will regain partial strength to be able to maintain single leg stance on RLE (L hip flexion) for 10 secodns STG Duration 4 weeks Flow Floor Attendant Goal (LTG) pt will regain full hip flexion strength and be able to get in and out of her car without using her UEs to assist LTG Duration 8 weeks pain Impairment radiating pain at L hip 8/10 Short Term Goal (STG) pt will have pain no more than 4/10 with sitting and stand to sit movements STG Duration 4 weeks Flow Floor Attendant Goal (LTG) pt will have pain no more than 2/10 with lumbar flexion movements such as sitting, bending over activities. LTG Duration 8 weeks LEFS Impairment pt scores 40 on LEFS Short Term Goal (STG) pt will show improved functional mobility and strength by scoring >50 on LEFS STG Duration 4 weeks Detention Goal (LTG) pt will show improved fucntional mobility and strength by scoring >60 on LEFs LTG Duration 8 weeks Assessment Summary Assessment Pt required occasional cues for CS neutral positioning during quadruped cat/ camel and PPT awareness during bridge and not arching LS with no pillows for neutral CS HEP review with improved decrease LB discomfort. Continued to experience uncomfortable specific nerve feeling pain transitioning quadruped into child's pose over L pirformis. Initiated sciatic nerve glide with no adverse affects, feels like a stretch with ankle movement. Physical Therapy Plan Frequency and Duration Frequency of Treatment 2x/Week Duration of Treatment 8 weeks Plan of Care Start Date 08/09/20 Plan of Care End Date 10/08/20 Therapeutic Interventions Therapeutic Interventions Balance Training,Gait Training ,Home Exercise Program,Joint Mobilizations,Manual Therapy, Neuromuscular Re-education, Patient/Caregiver Education, Self-Care/Home Management,Soft Tissue Mobilization,Taping, Therapeutic Activities, Therapeutic Exercises Modalities Biofeedback,Cold Pack/Ice Massage,Electric Stimulation, Hot Packs,Infrared Therapy, Iontophoresis,Traction- Mechanical Next Visit Focus/Plan Next Note Type Treatment Note Next Visit Plan Recheck her kaycee HEP: initiated sciatic nerve glide. STM over piriformis progress kaycee as david traction if needed
--- NOTE | 2020-08-24 08:19 | PT.OTN ---
Current Diagnoses Pain in left hip (08/24/20) Physical Therapy Treatment Note PT-OP-A Visit Information Start: 08/09/20 16:24 Freq: Status: Active Protocol: Document 08/24/20 07:30 SP (Rec: 08/24/20 11:40 SP [id number]) Out-Patient Physical Therapy Visit Information Visit Information Visit Type Treatment Note Visit Note Pt leaving town next week for few week to help her mom that fell, requested add more appts after ones scheduled to make up missing. PN end September by PT for coverage added appt if need. Visit Start Time 07:30 Visit Stop Time 08:19 Total Visit Minutes 49 Visit Number 5/ Number of DRAFTER ELECTROMECHANICAL Visits 2 Evaluation Information Evaluation Date 08/09/20 Precautions Precautions bruise easily depression osteopenia peripheral neuropathy PT-OP-B Current Condition Start: 08/09/20 16:24 Freq: Status: Active Protocol: Document 08/09/20 16:25 HH (Rec: 08/09/20 16:58 HH [email or web address]) Current Condition History of Current Condition Onset Date 2019 Current Complaints L radiating hip pain, unable to bend over History of Current Condition Donna is a 65 yo female here for her ongoing L radiating hip pain since last fall. Pt thinks she might hurt her hip while bending over to reach for her dog. She stated her pain is sharp located at L buttock which radiates to back of her L knee. Sitting, Stand to sit and bending over tend to aggravates her. She also noticed that WB on her LE such as standing on LLE also bothers her. However, standing or walking seem relieving at this point. Pt normally walk 3 milse a day with up and downhill prior to his injury. Pt went to see Dr. Curry and she was ruled out for hip OA. Prior Treatments and Tests Pt was diagnosed with peripheral neuropathy R>L 11/03= distal and symmertrical Current Functional Impairments (Reported) Functional Limitations- ADL's unable to sit for an hour stand to sit with caution unable to bend over and reach the floor Personal Factors Other Personal Factors That May Effect depression Therapy/Recovery osteopenia PT-OP-C Subjective Start: 08/09/20 16:24 Freq: Status: Active Protocol: Document 08/24/20 07:30 SP (Rec: 08/24/20 11:40 SP [id number]) OP-PT Subjective Patient Comments Patient Comments Pt reported soreness in L hip and glut still, no adverse reactions to HEP and seems be helping but still has the discomfort/light pain during transition cat camel into child's pose or transitions up / down from chair to post back hip/ L SI as reported before. Pt stated did purchase neproxin and ibuprofin. Pt reminded leaving to help mom on [facility] wanting to review HEP and add progressing activities can do while gone. Patient Reported Progress Same PT-OP-F Manual Assessment Start: 08/09/20 16:24 Freq: Status: Active Protocol: Document 08/09/20 16:25 HH (Rec: 08/09/20 16:58 HH [email or web address]) Manual Assessments Soft Tissue Assessment Soft Tissue Mobility Assessment significant hypertonicity at L piriformis mild hypertonicity at L lumbar paraspinals PT-OP-H Neuro Start: 08/09/20 16:24 Freq: Status: Active Protocol: Document 08/09/20 16:25 HH (Rec: 08/09/20 16:58 HH [email or web address]) Sensation Evaluation Gross Sensation Gross Sensation WNL Comments Summary Comments peripheral neuropathy noted mostly below ankle level. Pt stated no new sensation loss noted since this injury. Deep Tendon Reflex & Clonus Assessment Deep Tendon Reflex Bilateral Achilles Deep Tendon Reflex 2+ Normal Bilateral Patellar Deep Tendon Reflex 2+ Normal PT-OP-J Posture/Palpation/Skin Start: 08/09/20 16:24 Freq: Status: Active Protocol: Document 08/09/20 16:25 HH (Rec: 08/09/20 16:58 HH [email or web address]) Posture Evaluation Position Standing Weight Distribution Weight Shifted Right PT-OP-K Range of Motion Start: 08/09/20 16:24 Freq: Status: Active Protocol: Document 08/09/20 16:25 HH (Rec: 08/09/20 16:58 HH [email or web address]) Lumbar Spine Range of Motion Lumbar Spine Active Degrees Testing Position Standing Comments toe touch test= 16 inches from floor, with R trunk rotation d/t L hip radiating pain lateral flexion to R= 19 inches from floor, no increase in symptoms lateral flexion to L= 20 inches from floor, no increase in symptoms extension =shoulders over ankle, pain at L/s PT-OP-L Special Tests Start: 05/19/21 16:24 Freq: Status: Active Protocol: Document 08/09/20 16:25 HH (Rec: 08/09/20 16:58 HH [email or web address]) Special Tests Lumbar Spine Special Tests Straight Leg Raise Test Results +VE L Comments R= 90 no pain; L = 70 with pain Slump Test Results pain with neck flexion/ knee extension/ thoracic flexion Comments pain at L hip Hip Special Tests repeated extension Test Results pain reduced Comments centralized pain noted after repeated standing extension x10 radiating L hip pain with repeated flexion. SKY Test Results -ve Scour Test Test Results -VE Piriformis Test Results pain at L piriformis Comments but no neurological signs, or reproduced radiating pain PT-OP-M Strength Start: 08/09/20 16:24 Freq: Status: Active Protocol: Document 08/09/20 16:25 HH (Rec: 08/09/20 16:58 HH [email or web address]) Hip Strength Hip Manual Muscle Testing Right Flexion (L2) 4 Good Extension (S1) 4 Good Abduction 4 Good Adduction 4 Good Left Flexion (L2) 3+ Fair+ Extension (S1) 4- Good- Abduction 4- Good- Adduction 4- Good- PT-OP-Q Treatments Start: 08/09/20 16:24 Freq: Status: Active Protocol: Document 08/24/20 07:30 SP (Rec: 08/24/20 11:40 SP [id number]) Therapeutic Exercises Supine Exercises pelvic realignment ex Supine Exercise Name adduction and hip ext isometric, pelvis lift Side bilateral Reps/Minutes 3 sec hold x5 each bridging Equipment Used Tb #1 (provided #2 for later) Reps/Minutes 10 x2 (10 sec at top) Comments cues on gluteal engagement. piriformis stretch Supine Exercise Name IR/ ER hip seated today Side left Reps/Minutes 15 sec stretch x5 Comments good response Prone Exercises cat camel Reps/Minutes x5 assess after supine/ side ex Comments good lumbar segmental flexion child pose Reps/Minutes 10sec stretch x5 Comments from meckenzie level 2 extension to child pose- little discomf transition Kaycee method Prone Exercise Name level 2 position elbow then up on hands, arm at Y position Reps/Minutes 10 sec each then into child pose Comments foot off table Sidelying Exercises open book Sidelying Exercise Name added to HEP Side bilateral Reps/Minutes x10 Comments good feedback response reverse clamshell Sidelying Exercise Name added to HEP Side bilateral Resistance AROM Reps/Minutes x10 Comments good response pain free clamshell Sidelying Exercise Name review HEP Side bilateral Resistance TB #1 (gave #2 for later) Reps/Minutes 10x3 HEP review Comments good response pain free Sitting Exercises rolling pin self STMs Sitting Exercise Name quad, HS, calf, LB musculature Side bilateral Resistance added to HEP Comments self performance- good response Standing Exercises HS stretch Standing Exercise Name stand and seated 1 LE at time Side bilateral Resistance added to HEP Reps/Minutes 30 x3 Comments good response better than self standing hip hinge forward touch floor kaycee ext Standing Exercise Name hands on hips pelvis shift forward Resistance added to HEP for alternative upright positioning- better than prone Comments free standing vs. plank on wall- good feedback response both PT-OP-T Assessment and Plan Start: 08/09/20 16:24 Freq: Status: Active Protocol: Document 08/24/20 07:30 SP (Rec: 08/24/20 11:40 SP [id number]) Physical Therapy Assessment Goals hip flexion Impairment pt has difficulty lifting her L leg Short Term Goal (STG) pt will regain partial strength to be able to maintain single leg stance on RLE (L hip flexion) for 10 secodns STG Duration 4 weeks Billet Header Goal (LTG) pt will regain full hip flexion strength and be able to get in and out of her car without using her UEs to assist LTG Duration 8 weeks pain Impairment radiating pain at L hip 8/10 Short Term Goal (STG) pt will have pain no more than 4/10 with sitting and stand to sit movements STG Duration 4 weeks Long-Term Goal (LTG) pt will have pain no more than 2/10 with lumbar flexion movements such as sitting, bending over activities. LTG Duration 8 weeks LEFS Impairment pt scores 40 on LEFS Short Term Goal (STG) pt will show improved functional mobility and strength by scoring >50 on LEFS STG Duration 4 weeks Long-Term Goal (LTG) pt will show improved fucntional mobility and strength by scoring >60 on LEFs LTG Duration 8 weeks Assessment Summary Assessment Pt elevated L ilium, leveled ppost pelvic realignment and stated feels relaxing, cued for gentle muscle engagement 3 -5 sec x5 each BLE. Pt responded well to HEP review and initiated: pelvic realignment, kaycee ext standing, hip IR/Er and HS stretching seated, sidelying clam T #1/reverse clamshell AROM with good response no pain, with understanding awareness of TA facilitation with slow pacing movement. Pt stated felt more mobility, little less discomfort transitions into/out LS/ hip flexion by end of tx. Pt will continue on own while out of town, provided alternate positioning to HEP for use while traveling seated/ standing and has follow up with PT when returns. Physical Therapy Plan Frequency and Duration Frequency of Treatment 2x/Week Duration of Treatment 8 weeks Plan of Care Start Date 08/09/20 Plan of Care End Date 10/08/20 Therapeutic Interventions Therapeutic Interventions Balance Training,Gait Training ,Home Exercise Program,Joint Mobilizations,Manual Therapy, Neuromuscular Re-education, Patient/Caregiver Education, Self-Care/Home Management,Soft Tissue Mobilization,Taping, Therapeutic Activities, Therapeutic Exercises Modalities Biofeedback,Cold Pack/Ice Massage,Electric Stimulation, Hot Packs,Infrared Therapy, Iontophoresis,Traction- Mechanical Next Visit Focus/Plan Next Note Type Treatment Note Next Visit Plan Recheck her kaycee HEP: initiated see ther ex/ assessment added more for progression- response later day after tx. POC: STM over piriformis progress kaycee as david traction if needed
--- NOTE | 2020-09-19 12:16 | PT.OTN ---
Current Diagnoses Pain in left hip (09/19/20) Physical Therapy Treatment Note PT-OP-A Visit Information Start: 08/09/20 16:24 Freq: Status: Active Protocol: Document 09/19/20 09:03 (Rec: 09/19/20 12:15 [id number]) Out-Patient Physical Therapy Visit Information Visit Information Visit Type Treatment Note Visit Note pt just returned from her trip to [place]. Last visit= 08/24/20 Visit Start Time 09:03 Visit Stop Time 09:45 Total Visit Minutes 42 Visit Number Number of BURRER HAND Visits 0 PT-OP-B Current Condition Start: 08/09/20 16:24 Freq: Status: Active Protocol: Document 08/09/20 16:25 HH (Rec: 08/09/20 16:58 HH [email or web address]) Current Condition History of Current Condition Onset Date 2019 Current Complaints L radiating hip pain, unable to bend over History of Current Condition Donna is a 65 yo female here for her ongoing L radiating hip pain since last fall. Pt thinks she might hurt her hip while bending over to reach for her dog. She stated her pain is sharp located at L buttock which radiates to back of her L knee. Sitting, Stand to sit and bending over tend to aggravates her. She also noticed that WB on her LE such as standing on LLE also bothers her. However, standing or walking seem relieving at this point. Pt normally walk 3 milse a day with up and downhill prior to his injury. Pt went to see Dr. Curry and she was ruled out for hip OA. Prior Treatments and Tests Pt was diagnosed with peripheral neuropathy R>L 11/03= distal and symmertrical Current Functional Impairments (Reported) Functional Limitations- ADL's unable to sit for an hour stand to sit with caution unable to bend over and reach the floor Personal Factors Other Personal Factors That May Effect depression Therapy/Recovery osteopenia PT-OP-C Subjective Start: 08/09/20 16:24 Freq: Status: Active Protocol: Document 09/19/20 09:03 HH (Rec: 09/19/20 12:15 [id number]) OP-PT Subjective Patient Comments Patient Comments My L hip and back is more sore than before since last week. sitting upright and transitional movements ( flexion/extension) tend to hurt. Patient Reported Progress Same PT-OP-F Manual Assessment Start: 08/09/20 16:24 Freq: Status: Active Protocol: Document 08/09/20 16:25 HH (Rec: 08/09/20 16:58 [email or web address]) Manual Assessments Soft Tissue Assessment Soft Tissue Mobility Assessment significant hypertonicity at L piriformis mild hypertonicity at L lumbar paraspinals PT-OP-H Neuro Start: 08/09/20 16:24 Freq: Status: Active Protocol: Document 08/09/20 16:25 HH (Rec: 08/09/20 16:58 [email or web address]) Sensation Evaluation Gross Sensation Gross Sensation WNL Comments Summary Comments peripheral neuropathy noted mostly below ankle level. Pt stated no new sensation loss noted since this injury. Deep Tendon Reflex & Clonus Assessment Deep Tendon Reflex Bilateral Achilles Deep Tendon Reflex 2+ Normal Bilateral Patellar Deep Tendon Reflex 2+ Normal PT-OP-J Posture/Palpation/Skin Start: 08/09/20 16:24 Freq: Status: Active Protocol: Document 08/09/20 16:25 HH (Rec: 08/09/20 16:58 [email or web address]) Posture Evaluation Position Standing Weight Distribution Weight Shifted Right PT-OP-K Range of Motion Start: 08/09/20 16:24 Freq: Status: Active Protocol: Document 08/09/20 16:25 HH (Rec: 08/09/20 16:58 [email or web address]) Lumbar Spine Range of Motion Lumbar Spine Active Degrees Testing Position Standing Comments toe touch test= 16 inches from floor, with R trunk rotation d/t L hip radiating pain lateral flexion to R= 19 inches from floor, no increase in symptoms lateral flexion to L= 20 inches from floor, no increase in symptoms extension =shoulders over ankle, pain at L/s PT-OP-L Special Tests Start: 08/09/20 16:24 Freq: Status: Active Protocol: Document 08/09/20 16:25 HH (Rec: 08/09/20 16:58 [email or web address]) Special Tests Lumbar Spine Special Tests Straight Leg Raise Test Results +VE L Comments R= 90 no pain; L = 70 with pain Slump Test Results pain with neck flexion/ knee extension/ thoracic flexion Comments pain at L hip Hip Special Tests repeated extension Test Results pain reduced Comments centralized pain noted after repeated standing extension x10 radiating L hip pain with repeated flexion. SYK Test Results -ve Scour Test Test Results -VE Piriformis Test Results pain at L piriformis Comments but no neurological signs, or reproduced radiating pain PT-OP-M Strength Start: 08/09/20 16:24 Freq: Status: Active Protocol: Document 08/09/20 16:25 HH (Rec: 08/09/20 16:58 [email or web address]) Hip Strength Hip Manual Muscle Testing Right Flexion (L2) 4 Good Extension (S1) 4 Good Abduction 4 Good Adduction 4 Good Left Flexion (L2) 3+ Fair+ Extension (S1) 4- Good- Abduction 4- Good- Adduction 4- Good- PT-OP-Q Treatments Start: 08/09/20 16:24 Freq: Status: Active Protocol: Document 09/19/20 09:03 (Rec: 09/19/20 12:15 [id number]) Therapeutic Exercises Supine Exercises LTR Equipment Used with ball between knees Reps/Minutes 10 x2 Comments cues on flatten back and eccentric lowering. PPT Equipment Used with ball between knees Reps/Minutes 10 x2 Comments cues on flatten back, relief noted. bridging Equipment Used ball between knees Reps/Minutes 5 x2 Comments pain with PPT and bridge, discontinue today. Prone Exercises child pose Comments rec pt to continue Sidelying Exercises open book Sidelying Exercise Name with PT assisted today. Side bilateral Reps/Minutes x10 Comments good feedback response Manual Therapy Treatment Soft Tissue Mobilization glutes Body Location L glutes and piriformis Mobilization Type Myofascial Release Intensity/Depth Moderate Body Position Sidelying Joint Mobilizations PA mob Joint L3-S1 Direction PA Grade III Body Position Prone Comments slight pain at L5-S1 L hip Joint traction ( long leg pull, lat/ inf hip mob) Grade III Body Position Supine Reps/Duration 30 e ach x2 PT-OP-T Assessment and Plan Start: 08/09/20 16:24 Freq: Status: Active Protocol: Document 09/19/20 09:03 (Rec: 09/19/20 12:15 [id number]) Physical Therapy Assessment Goals hip flexion Impairment pt has difficulty lifting her L leg Short Term Goal (STG) pt will regain partial strength to be able to maintain single leg stance on RLE (L hip flexion) for 10 secodns STG Duration 4 weeks Mcc Goal (LTG) pt will regain full hip flexion strength and be able to get in and out of her car without using her UEs to assist LTG Duration 8 weeks pain Impairment radiating pain at L hip 8/10 Short Term Goal (STG) pt will have pain no more than 4/10 with sitting and stand to sit movements STG Duration 4 weeks Mcc Goal (LTG) pt will have pain no more than 2/10 with lumbar flexion movements such as sitting, bending over activities. LTG Duration 8 weeks LEFS Impairment pt scores 40 on LEFS Short Term Goal (STG) pt will show improved functional mobility and strength by scoring >50 on LEFS STG Duration 4 weeks Balancing Machine Operator Goal (LTG) pt will show improved fucntional mobility and strength by scoring >60 on LEFs LTG Duration 8 weeks Assessment Summary Assessment Pt returned from her trip to [place]. She still has pinching /radiating pain to L buttock with transitional lumbar movements (midrange flexion<>extension). Have pt to focus on trunk stability ex for the next few days to calm her pain down. Will work on using neutral spine position as compensatory pattern for functional activities to alleviate pain. Physical Therapy Plan Frequency and Duration Frequency of Treatment 2x/Week Duration of Treatment 8 weeks Plan of Care Start Date 08/09/20 Plan of Care End Date 10/08/20 Therapeutic Interventions Therapeutic Interventions Balance Training,Gait Training ,Home Exercise Program,Joint Mobilizations,Manual Therapy, Neuromuscular Re-education, Patient/Caregiver Education, Self-Care/Home Management,Soft Tissue Mobilization,Taping, Therapeutic Activities, Therapeutic Exercises Modalities Biofeedback,Cold Pack/Ice Massage,Electric Stimulation, Hot Packs,Infrared Therapy, Iontophoresis,Traction- Mechanical Next Visit Focus/Plan Next Note Type Treatment Note Next Visit Plan Recheck her danica HEP: initiated see ther ex/ assessment added more for progression- response later day after tx. POC: STM over piriformis progress danica as david traction if needed
--- NOTE | 2020-09-22 09:51 | PT.OTN ---
Current Diagnoses Pain in left hip (09/22/20) Physical Therapy Treatment Note PT-OP-A Visit Information Start: 08/09/20 16:24 Freq: Status: Active Protocol: Document 09/22/20 08:50 HH (Rec: 09/22/20 09:51 HH [id number]) Out-Patient Physical Therapy Visit Information Visit Information Visit Type Treatment Note Visit Start Time 09:00 Visit Stop Time 09:45 Total Visit Minutes 45 Visit Number 7/ Number of BILLING AND INSURANCE COORDINATOR Visits 0 PT-OP-B Current Condition Start: 08/09/20 16:24 Freq: Status: Active Protocol: Document 08/09/20 16:25 HH (Rec: 08/09/20 16:58 HH [email or web address]) Current Condition History of Current Condition Onset Date 2019 Current Complaints L radiating hip pain, unable to bend over History of Current Condition Donna is a 65 yo female here for her ongoing L radiating hip pain since last fall. Pt thinks she might hurt her hip while bending over to reach for her dog. She stated her pain is sharp located at L buttock which radiates to back of her L knee. Sitting, Stand to sit and bending over tend to aggravates her. She also noticed that WB on her LE such as standing on LLE also bothers her. However, standing or walking seem relieving at this point. Pt normally walk 3 milse a day with up and downhill prior to his injury. Pt went to see Dr. Curry and she was ruled out for hip OA. Prior Treatments and Tests Pt was diagnosed with peripheral neuropathy R>L 11/03= distal and symmertrical Current Functional Impairments (Reported) Functional Limitations- ADL's unable to sit for an hour stand to sit with caution unable to bend over and reach the floor Personal Factors Other Personal Factors That May Effect depression Therapy/Recovery osteopenia PT-OP-C Subjective Start: 08/09/20 16:24 Freq: Status: Active Protocol: Document 09/22/20 08:50 HH (Rec: 09/22/20 09:51 HH [id number]) OP-PT Subjective Patient Comments Patient Comments It calms down a little bit since last time. I did feel a bit when i went for a walk on fri. PT-OP-F Manual Assessment Start: 08/09/20 16:24 Freq: Status: Active Protocol: Document 08/09/20 16:25 HH (Rec: 08/09/20 16:58 HH [email or web address]) Manual Assessments Soft Tissue Assessment Soft Tissue Mobility Assessment significant hypertonicity at L piriformis mild hypertonicity at L lumbar paraspinals PT-OP-H Neuro Start: 08/09/20 16:24 Freq: Status: Active Protocol: Document 08/09/20 16:25 HH (Rec: 08/09/20 16:58 HH [email or web address]) Sensation Evaluation Gross Sensation Gross Sensation WNL Comments Summary Comments peripheral neuropathy noted mostly below ankle level. Pt stated no new sensation loss noted since this injury. Deep Tendon Reflex & Clonus Assessment Deep Tendon Reflex Bilateral Achilles Deep Tendon Reflex 2+ Normal Bilateral Patellar Deep Tendon Reflex 2+ Normal PT-OP-J Posture/Palpation/Skin Start: 08/09/20 16:24 Freq: Status: Active Protocol: Document 08/09/20 16:25 HH (Rec: 08/09/20 16:58 HH [email or web address]) Posture Evaluation Position Standing Weight Distribution Weight Shifted Right PT-OP-K Range of Motion Start: 08/09/20 16:24 Freq: Status: Active Protocol: Document 08/09/20 16:25 HH (Rec: 08/09/20 16:58 HH [email or web address]) Lumbar Spine Range of Motion Lumbar Spine Active Degrees Testing Position Standing Comments toe touch test= 16 inches from floor, with R trunk rotation d/t L hip radiating pain lateral flexion to R= 19 inches from floor, no increase in symptoms lateral flexion to L= 20 inches from floor, no increase in symptoms extension =shoulders over ankle, pain at L/s PT-OP-L Special Tests Start: 08/09/20 16:24 Freq: Status: Active Protocol: Document 08/09/20 16:25 HH (Rec: 08/09/20 16:58 HH [email or web address]) Special Tests Lumbar Spine Special Tests Straight Leg Raise Test Results +VE L Comments R= 90 no pain; L = 70 with pain Slump Test Results pain with neck flexion/ knee extension/ thoracic flexion Comments pain at L hip Hip Special Tests repeated extension Test Results pain reduced Comments centralized pain noted after repeated standing extension x10 radiating L hip pain with repeated flexion. SKY Test Results -ve Scour Test Test Results -VE Piriformis Test Results pain at L piriformis Comments but no neurological signs, or reproduced radiating pain PT-OP-M Strength Start: 08/09/20 16:24 Freq: Status: Active Protocol: Document 08/09/20 16:25 HH (Rec: 08/09/20 16:58 HH [email or web address]) Hip Strength Hip Manual Muscle Testing Right Flexion (L2) 4 Good Extension (S1) 4 Good Abduction 4 Good Adduction 4 Good Left Flexion (L2) 3+ Fair+ Extension (S1) 4- Good- Abduction 4- Good- Adduction 4- Good- PT-OP-Q Treatments Start: 08/09/20 16:24 Freq: Status: Active Protocol: Document 09/22/20 08:50 HH (Rec: 09/22/20 09:51 [id number]) Therapeutic Exercises Supine Exercises LTR Equipment Used with ball between knees Reps/Minutes 10 x2 Comments cues on flatten back and eccentric lowering. PPT Equipment Used with ball between knees Reps/Minutes 10 x2 Comments cues on flatten back, relief noted. bridging Equipment Used ball between knees Reps/Minutes 5 x2 Comments pain with PPT and bridge, discontinue today. sciatic nerve glide Supine Exercise Name with knee extneison and DF Reps/Minutes 10 x2 Comments for HEP, L side is more neural sensitive. knee to chest Side bilateral Reps/Minutes 15sec stretch x5 Comments for HEP Sidelying Exercises open book Sidelying Exercise Name with PT assisted today. Side bilateral Reps/Minutes x10 Comments good feedback response Manual Therapy Treatment Soft Tissue Mobilization glutes Body Location L glutes and piriformis Mobilization Type Myofascial Release Intensity/Depth Moderate Body Position Sidelying Self-Care/Home Management Treatment Education Other Education taught pt with protective movement strategy with log roll for bed mobility and neutral spine for STS movements. PT-OP-T Assessment and Plan Start: 08/09/20 16:24 Freq: Status: Active Protocol: Document 09/22/20 08:50 HH (Rec: 09/22/20 09:51 [id number]) Physical Therapy Assessment Goals hip flexion Impairment pt has difficulty lifting her L leg Short Term Goal (STG) pt will regain partial strength to be able to maintain single leg stance on RLE (L hip flexion) for 10 secodns STG Duration 4 weeks Kier Drier Goal (LTG) pt will regain full hip flexion strength and be able to get in and out of her car without using her UEs to assist LTG Duration 8 weeks pain Impairment radiating pain at L hip 8/10 Short Term Goal (STG) pt will have pain no more than 4/10 with sitting and stand to sit movements STG Duration 4 weeks Skilled Nursing Goal (LTG) pt will have pain no more than 2/10 with lumbar flexion movements such as sitting, bending over activities. LTG Duration 8 weeks LEFS Impairment pt scores 40 on LEFS Short Term Goal (STG) pt will show improved functional mobility and strength by scoring >50 on LEFS STG Duration 4 weeks Skilled Nursing Goal (LTG) pt will show improved fucntional mobility and strength by scoring >60 on LEFs LTG Duration 8 weeks Assessment Summary Assessment Spent time eduating pt on protective moveemnt strategies with log roll for bed mobility and neutral spine for sit to stand. Pt david very well with less pain. Consolidated her HEP today. Physical Therapy Plan Frequency and Duration Frequency of Treatment 2x/Week Duration of Treatment 8 weeks Plan of Care Start Date 08/09/20 Plan of Care End Date 10/08/20 Therapeutic Interventions Therapeutic Interventions Balance Training,Gait Training ,Home Exercise Program,Joint Mobilizations,Manual Therapy, Neuromuscular Re-education, Patient/Caregiver Education, Self-Care/Home Management,Soft Tissue Mobilization,Taping, Therapeutic Activities, Therapeutic Exercises Modalities Biofeedback,Cold Pack/Ice Massage,Electric Stimulation, Hot Packs,Infrared Therapy, Iontophoresis,Traction- Mechanical Next Visit Focus/Plan Next Note Type Treatment Note Next Visit Plan Recheck her danica HEP: initiated see ther ex/ assessment added more for progression- response later day after tx. POC: STM over piriformis progress danica as david traction if needed
--- NOTE | 2020-09-26 09:47 | PT.OTN ---
Current Diagnoses Pain in left hip (09/26/20) Physical Therapy Treatment Note PT-OP-A Visit Information Start: 08/09/20 16:24 Freq: Status: Active Protocol: Document 09/26/20 09:01 (Rec: 09/26/20 09:46 [id number]) Out-Patient Physical Therapy Visit Information Visit Information Visit Type Treatment Note Visit Start Time 09:01 Visit Stop Time 09:45 Total Visit Minutes 44 Visit Number 8 Number of DESIGN QUALITY ENGINEER Visits 0 PT-OP-B Current Condition Start: 08/09/20 16:24 Freq: Status: Active Protocol: Document 08/09/20 16:25 HH (Rec: 08/09/20 16:58 [email or web address]) Current Condition History of Current Condition Onset Date 2019 Current Complaints L radiating hip pain, unable to bend over History of Current Condition Donna is a 65 yo female here for her ongoing L radiating hip pain since last fall. Pt thinks she might hurt her hip while bending over to reach for her dog. She stated her pain is sharp located at L buttock which radiates to back of her L knee. Sitting, Stand to sit and bending over tend to aggravates her. She also noticed that WB on her LE such as standing on LLE also bothers her. However, standing or walking seem relieving at this point. Pt normally walk 3 milse a day with up and downhill prior to his injury. Pt went to see Dr. Curry and she was ruled out for hip OA. Prior Treatments and Tests Pt was diagnosed with peripheral neuropathy R>L 11/03= distal and symmertrical Current Functional Impairments (Reported) Functional Limitations- ADL's unable to sit for an hour stand to sit with caution unable to bend over and reach the floor Personal Factors Other Personal Factors That May Effect depression Therapy/Recovery osteopenia PT-OP-C Subjective Start: 08/09/20 16:24 Freq: Status: Active Protocol: Document 09/26/20 09:01 (Rec: 09/26/20 09:46 [id number]) OP-PT Subjective Patient Comments Patient Comments The log roll and sit to stand with abdominal brace tend to help. I had a pretty good day. Patient Reported Progress Improving PT-OP-F Manual Assessment Start: 08/09/20 16:24 Freq: Status: Active Protocol: Document 08/09/20 16:25 HH (Rec: 08/09/20 16:58 [email or web address]) Manual Assessments Soft Tissue Assessment Soft Tissue Mobility Assessment significant hypertonicity at L piriformis mild hypertonicity at L lumbar paraspinals PT-OP-H Neuro Start: 08/09/20 16:24 Freq: Status: Active Protocol: Document 08/09/20 16:25 HH (Rec: 08/09/20 16:58 [email or web address]) Sensation Evaluation Gross Sensation Gross Sensation WNL Comments Summary Comments peripheral neuropathy noted mostly below ankle level. Pt stated no new sensation loss noted since this injury. Deep Tendon Reflex & Clonus Assessment Deep Tendon Reflex Bilateral Achilles Deep Tendon Reflex 2+ Normal Bilateral Patellar Deep Tendon Reflex 2+ Normal PT-OP-J Posture/Palpation/Skin Start: 08/09/20 16:24 Freq: Status: Active Protocol: Document 08/09/20 16:25 HH (Rec: 08/09/20 16:58 [email or web address]) Posture Evaluation Position Standing Weight Distribution Weight Shifted Right PT-OP-K Range of Motion Start: 08/09/20 16:24 Freq: Status: Active Protocol: Document 08/09/20 16:25 HH (Rec: 08/09/20 16:58 [email or web address]) Lumbar Spine Range of Motion Lumbar Spine Active Degrees Testing Position Standing Comments toe touch test= 16 inches from floor, with R trunk rotation d/t L hip radiating pain lateral flexion to R= 19 inches from floor, no increase in symptoms lateral flexion to L= 20 inches from floor, no increase in symptoms extension =shoulders over ankle, pain at L/s PT-OP-L Special Tests Start: 08/09/20 16:24 Freq: Status: Active Protocol: Document 08/09/20 16:25 HH (Rec: 08/09/20 16:58 HH [email or web address]) Special Tests Lumbar Spine Special Tests Straight Leg Raise Test Results +VE L Comments R= 90 no pain; L = 70 with pain Slump Test Results pain with neck flexion/ knee extension/ thoracic flexion Comments pain at L hip Hip Special Tests repeated extension Test Results pain reduced Comments centralized pain noted after repeated standing extension x10 radiating L hip pain with repeated flexion. SKY Test Results -ve Scour Test Test Results -VE Piriformis Test Results pain at L piriformis Comments but no neurological signs, or reproduced radiating pain PT-OP-M Strength Start: 08/09/20 16:24 Freq: Status: Active Protocol: Document 08/09/20 16:25 (Rec: 08/09/20 16:58 [email or web address]) Hip Strength Hip Manual Muscle Testing Right Flexion (L2) 4 Good Extension (S1) 4 Good Abduction 4 Good Adduction 4 Good Left Flexion (L2) 3+ Fair+ Extension (S1) 4- Good- Abduction 4- Good- Adduction 4- Good- PT-OP-Q Treatments Start: 08/09/20 16:24 Freq: Status: Active Protocol: Document 09/26/20 09:01 (Rec: 09/26/20 09:46 [id number]) Gym Equipment Shuttle Recovery SL squat Resistance #37 Shuttle Recovery Platform Stable Therapeutic Exercises Supine Exercises ab curl Equipment Used red therapy ball Reps/Minutes 8 x2 LTR Equipment Used on red therapy ball Reps/Minutes 10 x2 Comments cues on flatten back and eccentric lowering. PPT Equipment Used with ball between knees Reps/Minutes 10 x2 Comments cues on flatten back, relief noted. bridging Supine Exercise Name add to HEP Equipment Used ball between knees Reps/Minutes 5 x2 Comments pain with PPT, so bridge with neutral position sciatic nerve glide Supine Exercise Name with knee extneison and DF Reps/Minutes 10 x2 Comments for HEP, L side is less neural sensitive. PT-OP-T Assessment and Plan Start: 08/09/20 16:24 Freq: Status: Active Protocol: Document 09/26/20 09:01 (Rec: 09/26/20 09:46 [id number]) Physical Therapy Assessment Goals hip flexion Impairment pt has difficulty lifting her L leg Short Term Goal (STG) pt will regain partial strength to be able to maintain single leg stance on RLE (L hip flexion) for 10 secodns STG Duration 4 weeks Retirement Goal (LTG) pt will regain full hip flexion strength and be able to get in and out of her car without using her UEs to assist LTG Duration 8 weeks pain Impairment radiating pain at L hip 8/10 Short Term Goal (STG) pt will have pain no more than 4/10 with sitting and stand to sit movements STG Duration 4 weeks Retirement Goal (LTG) pt will have pain no more than 2/10 with lumbar flexion movements such as sitting, bending over activities. LTG Duration 8 weeks LEFS Impairment pt scores 40 on LEFS Short Term Goal (STG) pt will show improved functional mobility and strength by scoring >50 on LEFS STG Duration 4 weeks Strategy Planning Consultant Goal (LTG) pt will show improved fucntional mobility and strength by scoring >60 on LEFs LTG Duration 8 weeks Assessment Summary Assessment Pt reports improved symptoms for the past few days after focusing on trunk stabilization ex. Added bridging today with neutral spine. pt david well with trunk stabilization ex. Physical Therapy Plan Frequency and Duration Frequency of Treatment 2x/Week Duration of Treatment 8 weeks Plan of Care Start Date 08/09/20 Plan of Care End Date 10/08/20 Therapeutic Interventions Therapeutic Interventions Balance Training,Gait Training ,Home Exercise Program,Joint Mobilizations,Manual Therapy, Neuromuscular Re-education, Patient/Caregiver Education, Self-Care/Home Management,Soft Tissue Mobilization,Taping, Therapeutic Activities, Therapeutic Exercises Modalities Biofeedback,Cold Pack/Ice Massage,Electric Stimulation, Hot Packs,Infrared Therapy, Iontophoresis,Traction- Mechanical Next Visit Focus/Plan Next Note Type Treatment Note Next Visit Plan Recheck her danica HEP: initiated see ther ex/ assessment added more for progression- response later day after tx. POC: STM over piriformis progress danica as david traction if needed
--- NOTE | 2020-09-29 09:52 | PT.OTN ---
Current Diagnoses Pain in left hip (09/29/20) Physical Therapy Treatment Note PT-OP-A Visit Information Start: 08/09/20 16:24 Freq: Status: Active Protocol: Document 09/29/20 09:04 (Rec: 09/29/20 09:52 [id number]) Out-Patient Physical Therapy Visit Information Visit Information Visit Type Treatment Note Visit Start Time 09:05 Visit Stop Time 09:45 Total Visit Minutes 40 Visit Number Number of WOMEN'S SWIM COACH Visits 0 PT-OP-B Current Condition Start: 08/09/20 16:24 Freq: Status: Active Protocol: Document 08/09/20 16:25 HH (Rec: 08/09/20 16:58 [email or web address]) Current Condition History of Current Condition Onset Date 2019 Current Complaints L radiating hip pain, unable to bend over History of Current Condition Donna is a 65 yo female here for her ongoing L radiating hip pain since last fall. Pt thinks she might hurt her hip while bending over to reach for her dog. She stated her pain is sharp located at L buttock which radiates to back of her L knee. Sitting, Stand to sit and bending over tend to aggravates her. She also noticed that WB on her LE such as standing on LLE also bothers her. However, standing or walking seem relieving at this point. Pt normally walk 3 milse a day with up and downhill prior to his injury. Pt went to see Dr. Curry and she was ruled out for hip OA. Prior Treatments and Tests Pt was diagnosed with peripheral neuropathy R>L 11/03= distal and symmertrical Current Functional Impairments (Reported) Functional Limitations- ADL's unable to sit for an hour stand to sit with caution unable to bend over and reach the floor Personal Factors Other Personal Factors That May Effect depression Therapy/Recovery osteopenia PT-OP-C Subjective Start: 08/09/20 16:24 Freq: Status: Active Protocol: Document 09/29/20 09:04 (Rec: 09/29/20 09:52 [id number]) OP-PT Subjective Patient Comments Patient Comments Im doing pretty good. I can sleep without waking up by the back pain now. However, i still have stiffness in the morning and im not sure if i should stretch before i get out of bed. Patient Reported Progress Improving PT-OP-F Manual Assessment Start: 08/09/20 16:24 Freq: Status: Active Protocol: Document 08/09/20 16:25 HH (Rec: 08/09/20 16:58 HH [email or web address]) Manual Assessments Soft Tissue Assessment Soft Tissue Mobility Assessment significant hypertonicity at L piriformis mild hypertonicity at L lumbar paraspinals PT-OP-H Neuro Start: 08/09/20 16:24 Freq: Status: Active Protocol: Document 08/09/20 16:25 HH (Rec: 08/09/20 16:58 [email or web address]) Sensation Evaluation Gross Sensation Gross Sensation WNL Comments Summary Comments peripheral neuropathy noted mostly below ankle level. Pt stated no new sensation loss noted since this injury. Deep Tendon Reflex & Clonus Assessment Deep Tendon Reflex Bilateral Achilles Deep Tendon Reflex 2+ Normal Bilateral Patellar Deep Tendon Reflex 2+ Normal PT-OP-J Posture/Palpation/Skin Start: 08/09/20 16:24 Freq: Status: Active Protocol: Document 08/09/20 16:25 HH (Rec: 08/09/20 16:58 [email or web address]) Posture Evaluation Position Standing Weight Distribution Weight Shifted Right PT-OP-K Range of Motion Start: 08/09/20 16:24 Freq: Status: Active Protocol: Document 08/09/20 16:25 HH (Rec: 08/09/20 16:58 [email or web address]) Lumbar Spine Range of Motion Lumbar Spine Active Degrees Testing Position Standing Comments toe touch test= 16 inches from floor, with R trunk rotation d/t L hip radiating pain lateral flexion to R= 19 inches from floor, no increase in symptoms lateral flexion to L= 20 inches from floor, no increase in symptoms extension =shoulders over ankle, pain at L/s PT-OP-L Special Tests Start: 08/09/20 16:24 Freq: Status: Active Protocol: Document 08/09/20 16:25 HH (Rec: 08/09/20 16:58 HH [email or web address]) Special Tests Lumbar Spine Special Tests Straight Leg Raise Test Results +VE L Comments R= 90 no pain; L = 70 with pain Slump Test Results pain with neck flexion/ knee extension/ thoracic flexion Comments pain at L hip Hip Special Tests repeated extension Test Results pain reduced Comments centralized pain noted after repeated standing extension x10 radiating L hip pain with repeated flexion. SKY Test Results -ve Scour Test Test Results -VE Piriformis Test Results pain at L piriformis Comments but no neurological signs, or reproduced radiating pain PT-OP-M Strength Start: 08/09/20 16:24 Freq: Status: Active Protocol: Document 08/09/20 16:25 (Rec: 08/09/20 16:58 [email or web address]) Hip Strength Hip Manual Muscle Testing Right Flexion (L2) 4 Good Extension (S1) 4 Good Abduction 4 Good Adduction 4 Good Left Flexion (L2) 3+ Fair+ Extension (S1) 4- Good- Abduction 4- Good- Adduction 4- Good- PT-OP-Q Treatments Start: 08/09/20 16:24 Freq: Status: Active Protocol: Document 09/29/20 09:04 (Rec: 09/29/20 09:52 [id number]) Therapeutic Exercises Supine Exercises ab curl Equipment Used red therapy ball Reps/Minutes 8 x2 LTR Equipment Used on red therapy ball Reps/Minutes 10 x2 Comments cues on flatten back and eccentric lowering. PPT Equipment Used with ball between knees Reps/Minutes 10 x2 Comments cues on flatten back, relief noted. Sitting Exercises lumbar flexion Sitting Exercise Name seated lumbar flexion, isometric pull Side bilateral Reps/Minutes 5sec hold x5 Comments for HEP Manual Therapy Treatment Joint Mobilizations MWM Joint L3-L5 Direction flexion Grade III Body Position Sitting Reps/Duration 10 mins Comments with active lumbar flexion L hip Joint traction ( long leg pull, lat/ inf hip mob) Grade III Body Position Supine Reps/Duration 30 e ach x2 PT-OP-T Assessment and Plan Start: 08/09/20 16:24 Freq: Status: Active Protocol: Document 09/29/20 09:04 (Rec: 09/29/20 09:52 [id number]) Physical Therapy Assessment Goals hip flexion Impairment pt has difficulty lifting her L leg Short Term Goal (STG) pt will regain partial strength to be able to maintain single leg stance on RLE (L hip flexion) for 10 secodns STG Duration 4 weeks Skilled Nursing Goal (LTG) pt will regain full hip flexion strength and be able to get in and out of her car without using her UEs to assist LTG Duration 8 weeks pain Impairment radiating pain at L hip 8/10 Short Term Goal (STG) pt will have pain no more than 4/10 with sitting and stand to sit movements STG Duration 4 weeks Skilled Nursing Goal (LTG) pt will have pain no more than 2/10 with lumbar flexion movements such as sitting, bending over activities. LTG Duration 8 weeks LEFS Impairment pt scores 40 on LEFS Short Term Goal (STG) pt will show improved functional mobility and strength by scoring >50 on LEFS STG Duration 4 weeks Skilled Nursing Goal (LTG) pt will show improved fucntional mobility and strength by scoring >60 on LEFs LTG Duration 8 weeks Assessment Summary Assessment Pt reports improved quality of sleep and awareness to protect her back. trial of MWM for lumbar flexion and pt has immediate less radiating pain to L buttock. Will f/u nex ttime. Physical Therapy Plan Frequency and Duration Frequency of Treatment 2x/Week Duration of Treatment 8 weeks Plan of Care Start Date 08/09/20 Plan of Care End Date 10/08/20 Therapeutic Interventions Therapeutic Interventions Balance Training,Gait Training ,Home Exercise Program,Joint Mobilizations,Manual Therapy, Neuromuscular Re-education, Patient/Caregiver Education, Self-Care/Home Management,Soft Tissue Mobilization,Taping, Therapeutic Activities, Therapeutic Exercises Modalities Biofeedback,Cold Pack/Ice Massage,Electric Stimulation, Hot Packs,Infrared Therapy, Iontophoresis,Traction- Mechanical Next Visit Focus/Plan Next Note Type Treatment Note Next Visit Plan Recheck her danica HEP: initiated see ther ex/ assessment added more for progression- response later day after tx. POC: STM over piriformis progress danica as david traction if needed
--- NOTE | 2020-10-03 12:16 | PT.OPPOC ---
Physical, Occupational & Speech Therapy At [facility] Current Diagnoses Pain in left hip (10/03/20) Visit Care Team Role Provider Type Alberto Curry MD Attending Provider Physician Family Provider Primary Care Provider Referring Provider Specialty: Family Practice Address: [address] [place] [address], [facility] [place], [address] Email: [email or web address] Plan Of Care PT-OP-T Assessment and Plan Start: 08/09/20 16:24 Freq: Status: Active Protocol: Document 10/03/20 08:56 (Rec: 10/03/20 12:14 [id number]) Physical Therapy Assessment Goals hip flexion Impairment pt has difficulty lifting her L leg Short Term Goal (STG) pt will regain partial strength to be able to maintain single leg stance on RLE (L hip flexion) for 10 secodns STG Duration 4 weeks Group Home Goal (LTG) 10/03 pt will regain full hip flexion strength and be able to get in and out of her car without using her UEs to assist LTG Duration 8 weeks pain Impairment radiating pain at L hip 8 Short Term Goal (STG) pt will have pain no more than 4/10 with sitting and stand to sit movements STG Duration 4 weeks Nursing Educator Goal (LTG) 10/03 pt will have pain no more than 2/10 with lumbar flexion movements such as sitting, bending over activities. LTG Duration 8 weeks LEFS Impairment pt scores 40 on LEFS Impairment 10/03 Short Term Goal (STG) pt will show improved functional mobility and strength by scoring >50 on LEFS STG Duration 4 weeks Nursing Educator Goal (LTG) pt will show improved fucntional mobility and strength by scoring >60 on LEFs LTG Duration 8 weeks Progress Towards Goals Progress Towards Goals Slow Progress - Other Assessment Summary Assessment reassessment today since pt has limited progress since initial evaluation. Pt is still positive for slump test, active straight leg raise, lateral flexion to L. Her pain tends to radiate and increase immedaitely with exertion/WB on LLE, but decrease with lateral flexion to L, slight extension. I still believe pt has disc herniation in a posterior lateral direction. Introduced pt to practice repeated lateral flexion to R and will reassess her symptoms next visit. I will like to attempt one more month of skilled therapy to see if pt makes any progress. Physical Therapy Plan Frequency and Duration Frequency of Treatment 2x/Week Duration of Treatment 8 weeks Plan of Care Start Date 10/03/20 Plan of Care End Date 12/02/20 Therapeutic Interventions Therapeutic Interventions Balance Training,Gait Training ,Home Exercise Program,Joint Mobilizations,Manual Therapy, Neuromuscular Re-education, Patient/Caregiver Education, Self-Care/Home Management,Soft Tissue Mobilization,Taping, Therapeutic Activities, Therapeutic Exercises Modalities Biofeedback,Cold Pack/Ice Massage,Electric Stimulation, Hot Packs,Infrared Therapy, Iontophoresis,Traction- Mechanical Next Visit Focus/Plan Next Note Type Treatment Note Next Visit Plan recheck lateral flexion method . Plan of Care Dates Plan of Care Start Date 10/03/20 Plan of Care End Date 12/02/20 Electronically Signed by: Jorge Cortes, PT 10/03/20 [id number] Please Sign and Return: I have reviewed this Plan of Care and certify that the skilled therapy services above are required to meet the patient?s needs. Physician Signature Date Printed Name and Credentials Clinical Instructor Signature Printed Name and Credentials
--- NOTE | 2020-10-06 12:01 | PT.OTN ---
Current Diagnoses Pain in left hip (10/06/20) Physical Therapy Treatment Note PT-OP-A Visit Information Start: 08/09/20 16:24 Freq: Status: Active Protocol: Document 10/06/20 09:00 HH (Rec: 10/06/20 12:01 [id number]) Out-Patient Physical Therapy Visit Information Visit Information Visit Type Treatment Note Visit Start Time 09:01 Visit Stop Time 09:45 Total Visit Minutes 44 Visit Number Number of COUNTY CORONER Visits 0 PT-OP-B Current Condition Start: 08/09/20 16:24 Freq: Status: Active Protocol: Document 08/09/20 16:25 HH (Rec: 08/09/20 16:58 [email or web address]) Current Condition History of Current Condition Onset Date 2019 Current Complaints L radiating hip pain, unable to bend over History of Current Condition Donna is a 65 yo female here for her ongoing L radiating hip pain since last fall. Pt thinks she might hurt her hip while bending over to reach for her dog. She stated her pain is sharp located at L buttock which radiates to back of her L knee. Sitting, Stand to sit and bending over tend to aggravates her. She also noticed that WB on her LE such as standing on LLE also bothers her. However, standing or walking seem relieving at this point. Pt normally walk 3 milse a day with up and downhill prior to his injury. Pt went to see Dr. Curry and she was ruled out for hip OA. Prior Treatments and Tests Pt was diagnosed with peripheral neuropathy R>L 11/03= distal and symmertrical Current Functional Impairments (Reported) Functional Limitations- ADL's unable to sit for an hour stand to sit with caution unable to bend over and reach the floor Personal Factors Other Personal Factors That May Effect depression Therapy/Recovery osteopenia PT-OP-C Subjective Start: 08/09/20 16:24 Freq: Status: Active Protocol: Document 10/06/20 09:00 HH (Rec: 10/06/20 12:01 [id number]) OP-PT Subjective Patient Comments Patient Comments I do notice that lateral flexion to R does not hurt me. Patient Reported Progress Same PT-OP-F Manual Assessment Start: 08/09/20 16:24 Freq: Status: Active Protocol: Document 08/09/20 16:25 HH (Rec: 08/09/20 16:58 HH [email or web address]) Manual Assessments Soft Tissue Assessment Soft Tissue Mobility Assessment significant hypertonicity at L piriformis mild hypertonicity at L lumbar paraspinals PT-OP-H Neuro Start: 08/09/20 16:24 Freq: Status: Active Protocol: Document 08/09/20 16:25 HH (Rec: 08/09/20 16:58 HH [email or web address]) Sensation Evaluation Gross Sensation Gross Sensation WNL Comments Summary Comments peripheral neuropathy noted mostly below ankle level. Pt stated no new sensation loss noted since this injury. Deep Tendon Reflex & Clonus Assessment Deep Tendon Reflex Bilateral Achilles Deep Tendon Reflex 2+ Normal Bilateral Patellar Deep Tendon Reflex 2+ Normal PT-OP-J Posture/Palpation/Skin Start: 08/09/20 16:24 Freq: Status: Active Protocol: Document 08/09/20 16:25 HH (Rec: 08/09/20 16:58 HH [email or web address]) Posture Evaluation Position Standing Weight Distribution Weight Shifted Right PT-OP-K Range of Motion Start: 08/09/20 16:24 Freq: Status: Active Protocol: Document 10/03/20 08:56 HH (Rec: 10/03/20 12:16 [id number]) Lumbar Spine Range of Motion Lumbar Spine Active Degrees Testing Position Standing PT-OP-L Special Tests Start: 08/09/20 16:24 Freq: Status: Active Protocol: Document 10/03/20 08:56 HH (Rec: 10/03/20 12:16 HH [id number]) Special Tests Lumbar Spine Special Tests Straight Leg Raise Test Results +VE L Comments R= 90 no pain; L = 70 with pain and weakness Slump Test Results pain with neck flexion/ knee extension/ thoracic flexion Comments pain at L hip Hip Special Tests SKY Test Results -ve Scour Test Test Results -VE Piriformis Test Results pain at L piriformis Comments but no neurological signs, or reproduced radiating pain PT-OP-M Strength Start: 08/09/20 16:24 Freq: Status: Active Protocol: Document 10/03/20 08:56 HH (Rec: 10/03/20 12:16 HH [id number]) Hip Strength Hip Manual Muscle Testing Right Flexion (L2) 4 Good Extension (S1) 4 Good Abduction 4 Good Adduction 4 Good Left Flexion (L2) 3+ Fair+ Extension (S1) 4- Good- Abduction 4- Good- Adduction 4- Good- PT-OP-Q Treatments Start: 08/09/20 16:24 Freq: Status: Active Protocol: Document 10/06/20 09:00 (Rec: 10/06/20 12:01 [id number]) Gym Equipment Shuttle Recovery SL squat Resistance #37 Shuttle Recovery Platform Stable Reps/Time pain with exertion for both LE Therapeutic Exercises Supine Exercises ab curl Equipment Used red therapy ball Reps/Minutes 8 x2 LTR Equipment Used on red therapy ball Reps/Minutes 10 x2 Comments pain towards L side bridging Supine Exercise Name add to HEP Equipment Used ball between knees Reps/Minutes 5 x2 Comments bridge with neutral position sciatic nerve glide Supine Exercise Name with knee extneison and DF Reps/Minutes 10 x2 Comments for HEP, L side is less neural sensitive. Standing Exercises lateral flexion Standing Exercise Name repeated trunk lateral flexion Side right Reps/Minutes 10 x2 Comments stretching nerve sensation on L only. Manual Therapy Treatment Joint Mobilizations MWM Joint provide SIJ stabilization Body Position Standing Reps/Duration 1 mins Comments pain persisted with lateral flexion to R PT-OP-T Assessment and Plan Start: 08/09/20 16:24 Freq: Status: Active Protocol: Document 10/06/20 09:00 (Rec: 10/06/20 12:01 [id number]) Physical Therapy Assessment Goals hip flexion Impairment pt has difficulty lifting her L leg Short Term Goal (STG) pt will regain partial strength to be able to maintain single leg stance on RLE (L hip flexion) for 10 secodns STG Duration 4 weeks Continuous Washer Operator Goal (LTG) 10/03 pt will regain full hip flexion strength and be able to get in and out of her car without using her UEs to assist LTG Duration 8 weeks pain Impairment radiating pain at L hip 8/ Short Term Goal (STG) pt will have pain no more than 4/10 with sitting and stand to sit movements STG Duration 4 weeks Continuous Washer Operator Goal (LTG) 10/03 pt will have pain no more than 2/10 with lumbar flexion movements such as sitting, bending over activities. LTG Duration 8 weeks LEFS Impairment pt scores 40 on LEFS Impairment 10/03 Short Term Goal (STG) pt will show improved functional mobility and strength by scoring >50 on LEFS STG Duration 4 weeks Continuous Washer Operator Goal (LTG) pt will show improved fucntional mobility and strength by scoring >60 on LEFs LTG Duration 8 weeks Assessment Summary Assessment pt continues to be very pain sensitive with flexion and lateral flexion to L. But not pain with extension nor lateral flexion to R. pt's progress has been plateaued and she is also very anxious about her pain symptoms. Will spend more time for pain education next time., Physical Therapy Plan Frequency and Duration Frequency of Treatment 2x/Week Duration of Treatment 8 weeks Plan of Care Start Date 10/03/20 Plan of Care End Date 12/02/20 Therapeutic Interventions Therapeutic Interventions Balance Training,Gait Training ,Home Exercise Program,Joint Mobilizations,Manual Therapy, Neuromuscular Re-education, Patient/Caregiver Education, Self-Care/Home Management,Soft Tissue Mobilization,Taping, Therapeutic Activities, Therapeutic Exercises Modalities Biofeedback,Cold Pack/Ice Massage,Electric Stimulation, Hot Packs,Infrared Therapy, Iontophoresis,Traction- Mechanical Next Visit Focus/Plan Next Note Type Treatment Note Next Visit Plan recheck lateral flexion method .
--- NOTE | 2020-10-10 12:28 | PT.OTN ---
Current Diagnoses Pain in left hip (10/10/20) Physical Therapy Treatment Note PT-OP-A Visit Information Start: 08/09/20 16:24 Freq: Status: Active Protocol: Document 10/10/20 09:03 HH (Rec: 10/10/20 12:27 [id number]) Out-Patient Physical Therapy Visit Information Visit Information Visit Type Treatment Note Visit Start Time 09:03 Visit Stop Time 09:45 Total Visit Minutes 43 Visit Number Number of HOSPITAL PHARMACY TECHNICIAN Visits 0 PT-OP-B Current Condition Start: 08/09/20 16:24 Freq: Status: Active Protocol: Document 08/09/20 16:25 HH (Rec: 08/09/20 16:58 HH [email or web address]) Current Condition History of Current Condition Onset Date 2019 Current Complaints L radiating hip pain, unable to bend over History of Current Condition Donna is a 65 yo female here for her ongoing L radiating hip pain since last fall. Pt thinks she might hurt her hip while bending over to reach for her dog. She stated her pain is sharp located at L buttock which radiates to back of her L knee. Sitting, Stand to sit and bending over tend to aggravates her. She also noticed that WB on her LE such as standing on LLE also bothers her. However, standing or walking seem relieving at this point. Pt normally walk 3 milse a day with up and downhill prior to his injury. Pt went to see Dr. Curry and she was ruled out for hip OA. 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 Patient Reported Progress Same PT-OP-F Manual Assessment Start: 08/09/20 16:24 Freq: Status: Active Protocol: Document 08/09/20 16:25 HH (Rec: 08/09/20 16:58 HH [email or web address]) Manual Assessments Soft Tissue Assessment Soft Tissue Mobility Assessment significant hypertonicity at L piriformis mild hypertonicity at L lumbar paraspinals PT-OP-H Neuro Start: 08/09/20 16:24 Freq: Status: Active Protocol: Document 08/09/20 16:25 HH (Rec: 08/09/20 16:58 HH [email or web address]) Sensation Evaluation Gross Sensation Gross Sensation WNL Comments Summary Comments peripheral neuropathy noted mostly below ankle level. Pt stated no new sensation loss noted since this injury. Deep Tendon Reflex & Clonus Assessment Deep Tendon Reflex Bilateral Achilles Deep Tendon Reflex 2+ Normal Bilateral Patellar Deep Tendon Reflex 2+ Normal PT-OP-J Posture/Palpation/Skin Start: 08/09/20 16:24 Freq: Status: Active Protocol: Document 08/09/20 16:25 HH (Rec: 08/09/20 16:58 HH [email or web address]) Posture Evaluation Position Standing Weight Distribution Weight Shifted Right PT-OP-K Range of Motion Start: 08/09/20 16:24 Freq: Status: Active Protocol: Document 10/03/20 08:56 HH (Rec: 10/03/20 12:16 HH [id number]) Lumbar Spine Range of Motion Lumbar Spine Active Degrees Testing Position Standing PT-OP-L Special Tests Start: 08/09/20 16:24 Freq: Status: Active Protocol: Document 10/03/20 08:56 HH (Rec: 10/03/20 12:16 HH [id number]) Special Tests Lumbar Spine Special Tests Straight Leg Raise Test Results +VE L Comments R= 90 no pain; L = 70 with pain and weakness Slump Test Results pain with neck flexion/ knee extension/ thoracic flexion Comments pain at L hip Hip Special Tests SKY Test Results -ve Scour Test Test Results -VE Piriformis Test Results pain at L piriformis Comments but no neurological signs, or reproduced radiating pain PT-OP-M Strength Start: 08/09/20 16:24 Freq: Status: Active Protocol: Document 10/03/20 08:56 HH (Rec: 10/03/20 12:16 HH [id number]) Hip Strength Hip Manual Muscle Testing Right Flexion (L2) 4 Good Extension (S1) 4 Good Abduction 4 Good Adduction 4 Good Left Flexion (L2) 3+ Fair+ Extension (S1) 4- Good- Abduction 4- Good- Adduction 4- Good- PT-OP-Q Treatments Start: 08/09/20 16:24 Freq: Status: Active Protocol: Document 10/10/20 09:03 (Rec: 10/10/20 12:27 [id number]) Therapeutic Exercises Supine Exercises bridging Supine Exercise Name add to HEP Equipment Used red band on knees. Reps/Minutes 10x 2 Comments bridge with neutral position, no discomfort sciatic nerve glide Supine Exercise Name with knee extneison and DF Reps/Minutes 10 x2 Comments for HEP, L side is less neural sensitive. Prone Exercises prone hip extension Prone Exercise Name uni hip extension Reps/Minutes 10 x2 Comments cues on neutral spine, pt tends to weight shift to L Sidelying Exercises hip abd Reps/Minutes 10 x 2 Comments no discomfort noted. Manual Therapy Treatment Soft Tissue Mobilization glutes Body Location L glutes and piriformis Mobilization Type Myofascial Release Intensity/Depth Moderate Body Position Prone Joint Mobilizations MWM Joint provide SIJ stabilization Body Position Standing Reps/Duration 1 mins Comments pain persisted with lateral flexion to R L hip Joint traction ( long leg pull, lat/ inf hip mob) Direction inferior and posterior glide with belt Grade III Body Position Supine Reps/Duration 5 mins Comments with passive hip flexoin, no pain noted PT-OP-T Assessment and Plan Start: 08/09/20 16:24 Freq: Status: Active Protocol: Document 10/10/20 09:03 (Rec: 10/10/20 12:27 [id number]) Physical Therapy Assessment Goals hip flexion Impairment pt has difficulty lifting her L leg Short Term Goal (STG) pt will regain partial strength to be able to maintain single leg stance on RLE (L hip flexion) for 10 secodns STG Duration 4 weeks Web Sizer Goal (LTG) 10/03 pt will regain full hip flexion strength and be able to get in and out of her car without using her UEs to assist LTG Duration 8 weeks pain Impairment radiating pain at L hip 8/10 Short Term Goal (STG) pt will have pain no more than 4/10 with sitting and stand to sit movements STG Duration 4 weeks Alf Goal (LTG) 10/03 pt will have pain no more than 2/10 with lumbar flexion movements such as sitting, bending over activities. LTG Duration 8 weeks LEFS Impairment pt scores 40 on LEFS Impairment 10/03 Short Term Goal (STG) pt will show improved functional mobility and strength by scoring >50 on LEFS STG Duration 4 weeks Alf Goal (LTG) pt will show improved fucntional mobility and strength by scoring >60 on LEFs LTG Duration 8 weeks Assessment Summary Assessment pt reports reduce in symptoms at the end of session with the focus on decompression of R sciatic nerve and hip/core stabilization ex. Will f/u her again next visit. Physical Therapy Plan Frequency and Duration Frequency of Treatment 2x/Week Duration of Treatment 8 weeks Plan of Care Start Date 10/03/20 Plan of Care End Date 12/02/20 Therapeutic Interventions Therapeutic Interventions Balance Training,Gait Training ,Home Exercise Program,Joint Mobilizations,Manual Therapy, Neuromuscular Re-education, Patient/Caregiver Education, Self-Care/Home Management,Soft Tissue Mobilization,Taping, Therapeutic Activities, Therapeutic Exercises Modalities Biofeedback,Cold Pack/Ice Massage,Electric Stimulation, Hot Packs,Infrared Therapy, Iontophoresis,Traction- Mechanical Next Visit Focus/Plan Next Note Type Treatment Note Next Visit Plan recheck lateral flexion method .
--- NOTE | 2020-10-13 11:30 | PT.OPPN ---
Current Diagnoses Pain in left hip (10/13/20) Physical Therapy Progress Note PT-OP-A Visit Information Start: 08/09/20 16:24 Freq: Status: Active Protocol: Document 10/13/20 09:01 (Rec: 10/13/20 11:29 [id number]) Out-Patient Physical Therapy Visit Information Visit Information Visit Type Progress Note Visit Start Time 09:04 Visit Stop Time 09:45 Total Visit Minutes 41 Visit Number 13/ Number of KENNEL KEEPER Visits 0 PT-OP-B Current Condition Start: 08/09/20 16:24 Freq: Status: Active Protocol: Document 08/09/20 16:25 HH (Rec: 08/09/20 16:58 [email or web address]) Current Condition History of Current Condition Onset Date 2019 Current Complaints L radiating hip pain, unable to bend over History of Current Condition Donna is a 65 yo female here for her ongoing L radiating hip pain since last fall. Pt thinks she might hurt her hip while bending over to reach for her dog. She stated her pain is sharp located at L buttock which radiates to back of her L knee. Sitting, Stand to sit and bending over tend to aggravates her. She also noticed that WB on her LE such as standing on LLE also bothers her. However, standing or walking seem relieving at this point. Pt normally walk 3 milse a day with up and downhill prior to his injury. Pt went to see Dr. Curry and she was ruled out for hip OA. Prior Treatments and Tests Pt was diagnosed with peripheral neuropathy R>L 11/03= distal and symmertrical Current Functional Impairments (Reported) Functional Limitations- ADL's unable to sit for an hour stand to sit with caution unable to bend over and reach the floor Personal Factors Other Personal Factors That May Effect depression Therapy/Recovery osteopenia PT-OP-C Subjective Start: 08/09/20 16:24 Freq: Status: Active Protocol: Document 10/13/20 09:01 (Rec: 10/13/20 11:29 [id number]) OP-PT Subjective Patient Comments Patient Comments There's time I feel some relief. I shouldve taken some notes. However, my pain is bad today Patient Reported Progress Improving PT-OP-F Manual Assessment Start: 08/09/20 16:24 Freq: Status: Active Protocol: Document 08/09/20 16:25 HH (Rec: 08/09/20 16:58 HH [email or web address]) Manual Assessments Soft Tissue Assessment Soft Tissue Mobility Assessment significant hypertonicity at L piriformis mild hypertonicity at L lumbar paraspinals PT-OP-H Neuro Start: 08/09/20 16:24 Freq: Status: Active Protocol: Document 08/09/20 16:25 HH (Rec: 08/09/20 16:58 HH [email or web address]) Sensation Evaluation Gross Sensation Gross Sensation WNL Comments Summary Comments peripheral neuropathy noted mostly below ankle level. Pt stated no new sensation loss noted since this injury. Deep Tendon Reflex & Clonus Assessment Deep Tendon Reflex Bilateral Achilles Deep Tendon Reflex 2+ Normal Bilateral Patellar Deep Tendon Reflex 2+ Normal PT-OP-J Posture/Palpation/Skin Start: 08/09/20 16:24 Freq: Status: Active Protocol: Document 08/09/20 16:25 HH (Rec: 08/09/20 16:58 HH [email or web address]) Posture Evaluation Position Standing Weight Distribution Weight Shifted Right PT-OP-K Range of Motion Start: 08/09/20 16:24 Freq: Status: Active Protocol: Document 10/03/20 08:56 HH (Rec: 10/03/20 12:16 HH [id number]) Lumbar Spine Range of Motion Lumbar Spine Active Degrees Testing Position Standing PT-OP-L Special Tests Start: 08/09/20 16:24 Freq: Status: Active Protocol: Document 10/03/20 08:56 HH (Rec: 10/03/20 12:16 HH [id number]) Special Tests Lumbar Spine Special Tests Straight Leg Raise Test Results +VE L Comments R= 90 no pain; L = 70 with pain and weakness Slump Test Results pain with neck flexion/ knee extension/ thoracic flexion Comments pain at L hip Hip Special Tests SKY Test Results -ve Scour Test Test Results -VE Piriformis Test Results pain at L piriformis Comments but no neurological signs, or reproduced radiating pain PT-OP-M Strength Start: 08/09/20 16:24 Freq: Status: Active Protocol: Document 10/03/20 08:56 HH (Rec: 10/03/20 12:16 HH [id number]) Hip Strength Hip Manual Muscle Testing Right Flexion (L2) 4 Good Extension (S1) 4 Good Abduction 4 Good Adduction 4 Good Left Flexion (L2) 3+ Fair+ Extension (S1) 4- Good- Abduction 4- Good- Adduction 4- Good- PT-OP-T Assessment and Plan Start: 08/09/20 16:24 Freq: Status: Active Protocol: Document 10/13/20 09:01 (Rec: 10/13/20 11:29 [id number]) Physical Therapy Assessment Goals hip flexion Impairment pt has difficulty lifting her L leg Short Term Goal (STG) pt will regain partial strength to be able to maintain single leg stance on RLE (L hip flexion) for 10 secodns STG Duration 4 weeks Residential Goal (LTG) 10/03 pt will regain full hip flexion strength and be able to get in and out of her car without using her UEs to assist LTG Duration 8 weeks pain Impairment radiating pain at L hip 8 Short Term Goal (STG) pt will have pain no more than 4/10 with sitting and stand to sit movements STG Duration 4 weeks Cloth Packer Goal (LTG) 10/03 pt will have pain no more than 2/10 with lumbar flexion movements such as sitting, bending over activities. LTG Duration 8 weeks LEFS Impairment pt scores 40 on LEFS Impairment 10/03 Short Term Goal (STG) pt will show improved functional mobility and strength by scoring >50 on LEFS STG Duration 4 weeks Residential Goal (LTG) pt will show improved fucntional mobility and strength by scoring >60 on LEFs LTG Duration 8 weeks Progress Towards Goals Progress Towards Goals Slow Progress - Other Assessment Summary Assessment Pt has not shown significant improvements since evaulation. She is still very pain sensitive to flexion and lateral flexion to L. Attempted Lexus method, traction, trunk stabilization approaches but no noticeable difference noted. I believes pt has possible herniated disc at L4-SIJ region which MRI assessment might be needed. Also recommended pt to consult with PCP Dr. Curry if using cortisone injection might be a good idea at this point. Physical Therapy Plan Frequency and Duration Frequency of Treatment 2x/Week Duration of Treatment 8 weeks Plan of Care Start Date 10/03/20 Plan of Care End Date 12/02/20 Therapeutic Interventions Therapeutic Interventions Balance Training,Gait Training ,Home Exercise Program,Joint Mobilizations,Manual Therapy, Neuromuscular Re-education, Patient/Caregiver Education, Self-Care/Home Management,Soft Tissue Mobilization,Taping, Therapeutic Activities, Therapeutic Exercises Modalities Biofeedback,Cold Pack/Ice Massage,Electric Stimulation, Hot Packs,Infrared Therapy, Iontophoresis,Traction- Mechanical Next Visit Focus/Plan Next Note Type Treatment Note Next Visit Plan recheck lateral flexion method .
--- NOTE | 2020-12-14 11:45 | PT.OPDS ---
Current Diagnoses Pain in left hip (10/13/20) Visit Care Team Role Provider Type Alberto Curry MD Attending Provider Physician Family Provider Primary Care Provider Referring Provider Specialty: Family Practice Address: [address] [place] [address], [id number] Email: [email or web address] Visit Number Visit Number Discharge Summary PT-OP-T Assessment and Plan Start: 08/09/20 16:24 Freq: Status: Active Protocol: Document 12/14/20 11:44 HH (Rec: 12/14/20 11:45 [id number]) Physical Therapy Plan Discharge Physical Therapy Discharge Reasons No Longer Attending PT Discharge Comments Pt is no longer attending PT. Per EMR, pt has not been making much meaningful progress since evaluation. Recommended her to consult PCP for further imaging. DC from PT today
== END 2020-12-14 13:22 | disposition home or self-care (01) ==
LOC: PHYS 09:00
PROVIDERS: Family Provider Family Medicine; PCP Family Medicine; Referring Provider Family Medicine; Visit Provider Family Medicine
DX: M25.552 Pain in left hip (principal)
CPT/HCPCS: 95851; 97110; 97140; 97161; 97535; 97750

== ENCOUNTER → 2020-10-18 15:33 | Outpatient (CLI) | payer OTHER, SELFPAY ==
--- NOTE | 2020-10-18 | DI.RAD.S_ITS ---
PROCEDURE: XR LUMBAR SPINE 2-3V INDICATIONS: low back pain TECHNIQUE: 3 views of the lumbar spine were acquired. COMPARISON: None. FINDINGS: Bones: The lumbar spine has multilevel degenerative changes. There is grade 1 anterolisthesis of L4 over L5, likely due to facet arthrosis in the lower lumbar spine. The sacroiliac joints are normal. The remaining vertebral bodies are well aligned with no vertebral body height loss. There is disc disease at L4-5 as evidenced by disc space narrowing. L5-S1 also has disc space narrowing. Soft tissues: Overlying bowel gas pattern is normal. No suspicious soft tissue calcifications. IMPRESSION: 1. Facet arthrosis in the lower lumbar spine with grade 1 anterolisthesis of L4 over L5. 2. Disc space narrowing of L4-5 and L5-S1 consistent with disc disease. 3. No acute abnormality. Dictated by: Harmeet Durham M.D. on 10/19/2020 at 10:25 Approved by: Harmeet Durham M.D. on 10/19/2020 at 10:28
== END ==
PROVIDERS: Family Provider Family Medicine; PCP Family Medicine; Referring Provider Family Medicine; Visit Provider Family Medicine
DX: M54.5 Low back pain (principal); M43.16 Spondylolisthesis, lumbar region; M47.816 Spondylosis without myelopathy or radiculopathy, lumbar region; M51.9 Unspecified thoracic, thoracolumbar and lumbosacral intervertebral disc disorder
CPT/HCPCS: 72100

== ENCOUNTER → 2020-10-26 17:30 | Outpatient (CLI) | payer OTHER, SELFPAY ==
--- NOTE | 2020-10-26 | DI.MRI.S_ITS ---
PROCEDURE: MR LUMBAR SPINE WO CON INDICATIONS: lumbago with sciatica, left side TECHNIQUE: Noncontrast sagittal T1 spin echo and T2 fast echo, sagittal STIR, axial T1 and T2 fast spin echo through the lumbar spine. In cases with scoliosis, additional coronal T2 fast spin echo may be performed. COMPARISON: [facility], CR, XR LUMBAR SPINE 2-3V, 10/18/2020, 15:43. FINDINGS: Image quality: Excellent. Alignment and Curvature: 5 lumbar type vertebral bodies are present by plain film. There is mild, grade 1 anterolisthesis of L4 on L5. Mild grade 1 retrolisthesis of L5 on S1. Bone Marrow: Marrow is of normal overall signal. No acute vertebral body compression fractures. Mild reactive signal within the endplates adjacent to the T12-L1, L1-L2, L2-L3, L3-L4, L4-L5, and L5-S1 intervertebral discs. Spinal Cord: Conus medullaris terminates at the L1-L2 disc space level. Visualized cord demonstrates normal signal and size. Paraspinous Soft Tissues: No paravertebral masses. T12-L1: Mild disc desiccation. Mild diffuse disc bulge. Minimal canal stenosis. No foraminal stenosis. L1-L2: Mild disc height loss and desiccation. Mild diffuse disc bulge. Minimal canal stenosis. No foraminal stenosis. L2-L3: Mild disc desiccation and diffuse disc bulge. Mild canal stenosis. Mild bilateral foraminal stenosis. L3-L4: Mild disc desiccation and diffuse disc bulge. Mild canal stenosis. Mild bilateral foraminal stenosis. L4-L5: Moderate disc height loss and desiccation. Mild diffuse disc bulge. Moderate bilateral facet and ligamentum flavum hypertrophy. Periarticular cyst arises from the left facet joint, measuring roughly 13 mm, protruding into the left posterolateral epidural space. Severe canal stenosis. Moderate bilateral foraminal stenosis. L5-S1: Moderate disc height loss and desiccation. Mild diffuse disc bulge. Mild bilateral facet hypertrophy. Mild canal stenosis. Moderate right greater than left foraminal stenosis. IMPRESSION: 1. Multilevel degenerative disc and facet disease, as well as ligamentum flavum hypertrophy and epidural lipomatosis. 2. Multilevel canal stenoses, worst at L4-L5 where there is contribution by periarticular cyst arising from the left facet joint. 3. Multilevel foraminal stenoses, worst at L4-L5 and L5-S1 where there are moderate foraminal stenosis. Dictated by: Hung Gan M.D. on 10/27/2020 at 9:20 Approved by: Hung Gan M.D. on 10/27/2020 at 9:24
== END ==
PROVIDERS: Family Provider Family Medicine; PCP Family Medicine; Referring Provider Family Medicine; Visit Provider Family Medicine
DX: M51.16 Intervertebral disc disorders with radiculopathy, lumbar region (principal); M51.17 Intervertebral disc disorders with radiculopathy, lumbosacral region; M48.061 Spinal stenosis, lumbar region without neurogenic claudication; M48.07 Spinal stenosis, lumbosacral region
CPT/HCPCS: 72148

== ENCOUNTER → 2020-11-09 12:48 | Outpatient (CLI) | payer OTHER, SELFPAY ==
--- NOTE | 2020-11-09 | DI.MG.S_ITS ---
BILATERAL DIGITAL DIAGNOSTIC MAMMOGRAM 3D/2D SHORT-TERM FOLLOW-UP: 11/09/2020 CLINICAL: Short term follow up of the right breast, due for bilateral imaging. Comparison is made to exams dated: 12/23/2019 mammogram, 11/06/2019 mammogram, and 10/06/2018 mammogram - [facility]. The tissue of both breasts is heterogeneously dense. This may lower the sensitivity of mammography. There are grouped fine calcifications in the right breast posterior depth superior region seen on the mediolateral oblique view only. These are not significantly changed. No other significant new masses, calcifications, or other findings are seen in either breast. IMPRESSION: PROBABLY BENIGN The grouped fine calcifications in the right breast are probably benign. A follow-up mammogram in 12 months is recommended to demonstrate 2 year stability. This exam was interpreted at Station ID: [id number]. NOTE: For mammograms, a report in lay terms will be sent to the patient. Approximately 15% of breast malignancies will not be visualized mammographically. In the management of a palpable breast mass, a negative mammogram must not discourage biopsy of a clinically suspicious lesion. Electronically Signed By: Zak Chapa M.D. ddjerica/:11/09/2020 13:32:04 letter sent: Followup Recommended ACR BI-RADS Category 3: Probably benign 3343F
== END ==
PROVIDERS: Family Provider Family Medicine; PCP Family Medicine; Referring Provider Family Medicine; Visit Provider Family Medicine
DX: R92.1 Mammographic calcification found on diagnostic imaging of breast
CPT/HCPCS: 77066; G0279

== ENCOUNTER → 2020-12-26 15:08 | Outpatient (CLI) | payer OTHER, SELFPAY ==
--- NOTE | 2020-12-26 | DI.CT.S_ITS ---
PROCEDURE: CT LUMBAR SPINE WO CON INDICATIONS: Spinal stenosis, lumbar region with neurogenic claudication TECHNIQUE: Noncontrast 3 mm thick sections acquired from the T12 level to the sacrum. Sagittal and coronal reformats were constructed. For radiation dose reduction, the following was used: automated exposure control. COMPARISON: None. FINDINGS: Image quality: Diagnostic, with note made of motion artifact. Bones: No acute vertebral body compression fractures. No suspicious lytic or blastic bony lesions. Mild dextroconvex scoliotic curvature is seen. Mild grade 1 L4-5 anterolisthesis is seen. No associated pars defects are seen. Minimal retrolisthesis is seen at L5-S1. T12-L1: Normal. L1-L2: Normal. L2-L3: The disc height is well preserved. Mild generalized disc bulge is seen. There is mild left-sided and no right-sided neural foraminal narrowing seen. No central canal narrowing is seen. L3-L4: The disc height is well preserved. Mild generalized disc bulge is seen. Mild facet joint hypertrophy is seen. No significant neural foraminal or central canal narrowing can be seen. L4-L5: Mild loss of disc height is seen. Vacuum disc phenomenon is seen at this level. Mild disc bulge is seen. Prominent facet hypertrophy is seen. There is a left-sided synovial cyst seen, as on series 3, image 67 that measures up to 1 cm in greatest axial dimension and measures 1.3 cm craniocaudal. There is at least moderate left-sided and moderate right-sided neural foraminal narrowing seen. Moderate to severe central canal narrowing is seen. L5-S1: Mild loss of disc height is seen. Macrovascular mild disc bulge is seen at this level. Mild facet joint hypertrophy is seen. Mild bilateral neural foraminal narrowing is seen. No central canal narrowing is seen. Soft tissues: No retroperitoneal masses or hematomas. Visualized aorta is normal in caliber. Atherosclerotic calcification is noted. IMPRESSION: Degenerative changes are seen, which are worst at the L4-L5 level. At the L4-L5 level, there is a left-sided synovial cyst seen, which is better demonstrated on the recent prior MRI examination. Grade 1 L4-5 anterolisthesis, without associated pars defects. Dictated by: Steven Ac M.D. on 12/26/2020 at 15:36 Approved by: Steven Ac M.D. on 12/26/2020 at 15:40
== END ==
PROVIDERS: Family Provider Family Medicine; PCP Family Medicine; Referring Provider Student in an Organized Health Care Education/Training Program; Visit Provider Student in an Organized Health Care Education/Training Program
DX: M48.062 Spinal stenosis, lumbar region with neurogenic claudication (principal); M71.38 Other bursal cyst, other site; M47.816 Spondylosis without myelopathy or radiculopathy, lumbar region; M43.16 Spondylolisthesis, lumbar region
CPT/HCPCS: 72131

== ENCOUNTER → 2021-12-03 13:31 | Outpatient (CLI) | payer OTHER, SELFPAY ==
--- NOTE | 2021-12-03 13:34 | DI.MG.S_ITS ---
BILATERAL DIGITAL DIAGNOSTIC MAMMOGRAM 3D/2D: 12/03/2021 CLINICAL: 12 month follow up per prior exam. Comparison is made to exams dated: 11/09/2020 mammogram, 12/23/2019 mammogram, 11/06/2019 mammogram, and 10/06/2018 mammogram - [facility]. Both breasts are heterogeneously dense, which may obscure small masses (category c / 51-75% glandular tissue). There are grouped fine punctate calcifications in the right breast posterior depth superior region seen on the mediolateral oblique view only. These are not significantly changed. No other significant masses, calcifications, or other findings are seen in either breast. IMPRESSION: PROBABLY BENIGN The grouped fine punctate calcifications in the right breast are probably benign. A follow-up mammogram in 12 months is recommended to document half-way stability. Findings and recommendations were conveyed to the patient during today's evaluation. Based on the Tyrer Cuzick model (a risk assessment model) the patient's lifetime risk is 11.0% and her 10 year risk is 5.3%. According to the ACR, ACS, and NCCN guidelines, an annual breast MRI exam along with mammogram is recommended if the patient's lifetime risk is 20% or greater. This exam was interpreted at Station ID: [id number]. NOTE: For mammograms, a report in lay terms will be sent to the patient. Approximately 15% of breast malignancies will not be visualized mammographically. In the management of a palpable breast mass, a negative mammogram must not discourage biopsy of a clinically suspicious lesion. Electronically Signed By: Richard Cade M.D. aty/:12/03/2021 14:06:33 letter sent: Followup Recommended ACR BI-RADS Category 3: Probably benign [id number]
== END ==
PROVIDERS: Family Provider Family Medicine; PCP Family Medicine; Referring Provider Family Medicine; Visit Provider Family Medicine
DX: R92.8 Other abnormal and inconclusive findings on diagnostic imaging of breast (principal); R92.1 Mammographic calcification found on diagnostic imaging of breast
CPT/HCPCS: 77066; G0279

== ENCOUNTER → 2021-12-21 12:50 | Outpatient (CLI) | payer OTHER, SELFPAY | PROVIDERS: Family Provider Family Medicine; PCP Family Medicine; Referring Provider Family Medicine; Visit Provider Family Medicine | DX: M85.852 Other specified disorders of bone density and structure, left thigh (principal); Z13.820 Encounter for screening for osteoporosis; Z78.0 Asymptomatic menopausal state | CPT/HCPCS: 77080 ==

== ENCOUNTER → 2023-01-15 13:34 | Outpatient (CLI) | payer MEDICARE, SELFPAY ==
--- NOTE | 2023-01-15 | DI.MG.S_ITS ---
BILATERAL DIGITAL DIAGNOSTIC MAMMOGRAM 3D/2D: 01/15/2023 CLINICAL: Patient returns for a 12 month follow up of the right breast, due for bilateral exam. Comparison is made to exams dated: 12/03/2021 mammogram, 11/09/2020 mammogram, 12/23/2019 mammogram, 11/06/2019 mammogram - [facility], and 01/27/2012 mammogram - [facility]. Both breasts are heterogeneously dense, which may obscure small masses (category c / 51-75% glandular tissue). There are benign grouped fine punctate calcifications in the right breast posterior depth superior region seen on the mediolateral oblique view only. These are not significantly changed for two years and are consistent with a benign process. Redemonstration of oval focal asymmetries in the left breast that have waxed and waned over the years. Today's evaluation is more prominent than the previous year but nearly identical to 2012 mammogram. No other significant masses, calcifications, or other findings are seen in either breast. IMPRESSION: BENIGN There is no mammographic evidence of malignancy. A 1 year screening mammogram is recommended. Findings and recommendations were conveyed to the patient during today's evaluation. Based on the Tyrer Cuzick model (a risk assessment model) the patient's lifetime risk is 10.6% and her 10 year risk is 5.3%. According to the ACR, ACS, and NCCN guidelines, an annual breast MRI exam along with mammogram is recommended if the patient's lifetime risk is 20% or greater. This exam was interpreted at Station ID: [id number]. NOTE: For mammograms, a report in lay terms will be sent to the patient. Approximately 15% of breast malignancies will not be visualized mammographically. In the management of a palpable breast mass, a negative mammogram must not discourage biopsy of a clinically suspicious lesion. Electronically Signed By: Richard Cade M.D. aty/:01/15/2023 14:13:14 letter sent: Normal Exam ACR BI-RADS Category 2: Benign Finding(s) 3342F
== END ==
PROVIDERS: Family Provider Family Medicine; PCP Family Medicine; Referring Provider Family Medicine; Visit Provider Family Medicine
DX: R92.8 Other abnormal and inconclusive findings on diagnostic imaging of breast (principal)
CPT/HCPCS: 77066; G0279

== ENCOUNTER → 2023-04-01 11:40 | Outpatient (CLI) | payer MEDICARE, SELFPAY ==
--- NOTE | 2023-04-01 | DI.RAD.S_ITS ---
PROCEDURE: XR FOOT RT MIN 3V INDICATIONS: FOOT PAIN TECHNIQUE: 3 views of the foot were acquired. COMPARISON: None. FINDINGS: Bones: Pes planus. No fractures or dislocations. No suspicious bony lesions. Metatarsus adductus and hallux valgus. Mild osteoarthritic changes in ankle and foot. There is hammertoe of the 2nd toe. Bipartite medial sesamoid. Moderate osteoarthritic changes, most pronounced at the 1st metatarsophalangeal joint. Soft tissues: No tibiotalar joint effusion. Achilles tendon appears normal. Soft tissue swelling over the 1st and 5th metatarsophalangeal joints. Plantar calcaneal spurring. IMPRESSION: 1. Pes planus. 2. Metatarsus adductus and hallux valgus. 3. Hammertoe deformity of the 2nd toe. 4. Bipartite medial sesamoid. 5. Moderate osteoarthritic changes. Dictated by: Chery Campbell M.D. on 04/01/2023 at 14:47 Approved by: Chery Campbell M.D. on 04/02/2023 at 8:35
--- NOTE | 2023-04-01 | DI.RAD.S_ITS ---
PROCEDURE: XR FOOT LT MIN 3V INDICATIONS: FOOT PAIN TECHNIQUE: 3 views of the foot were acquired. COMPARISON: None. FINDINGS: Bones: Mild pes planus. No fractures or dislocations. No suspicious bony lesions. Bipartite medial sesamoid. Multipartite lateral sesamoid versus old fractures. Mild osteoarthritic changes, most pronounced at the 1st metatarsophalangeal joint. Soft tissues: No tibiotalar joint effusion. Achilles tendon appears normal. Soft tissue swelling over the 1st and 5th metatarsophalangeal joints. IMPRESSION: 1. Mild pes planus. 2. Osteoarthritis. 3. Multipartite lateral sesamoid versus old nonunited fracture. If there is clinical suspicion for sesamoid dysfunction, consider MRI. Dictated by: Chery Campbell M.D. on 04/01/2023 at 14:53 Approved by: Chery Campbell M.D. on 04/02/2023 at 8:37
== END ==
PROVIDERS: Family Provider Family Medicine; PCP Family Medicine; Referring Provider Podiatrist; Visit Provider Podiatrist
DX: M20.11 Hallux valgus (acquired), right foot (principal); M20.41 Other hammer toe(s) (acquired), right foot; M20.5X1 Other deformities of toe(s) (acquired), right foot; M24.574 Contracture, right foot; M21.41 Flat foot [pes planus] (acquired), right foot; M21.42 Flat foot [pes planus] (acquired), left foot; M19.072 Primary osteoarthritis, left ankle and foot
CPT/HCPCS: 73630

== ENCOUNTER → 2023-12-01 09:04 | Outpatient (CLI) | payer MEDICARE, SELFPAY ==
--- NOTE | 2023-12-01 09:06 | DI.RAD.S_ITS ---
PROCEDURE: XR FOREARM RT 2V INDICATIONS: PAIN TECHNIQUE: 2 views of the forearm were acquired. COMPARISON: None. FINDINGS: Bones: No fractures or dislocations. No suspicious bony lesions. Soft tissues: No suspicious soft tissue calcifications or masses. IMPRESSION: No acute bony abnormality. Dictated by: Bruno Yanez M.D. on 12/01/2023 at 10:25 Approved by: Bruno Yanez M.D. on 12/01/2023 at 10:26
== END ==
PROVIDERS: Family Provider Family Medicine; PCP Family Medicine; Referring Provider Family Medicine; Visit Provider Family Medicine
DX: R52 Pain, unspecified (principal); L90.5 Scar conditions and fibrosis of skin
CPT/HCPCS: 73090

== ENCOUNTER → 2024-02-23 08:09 | Outpatient (CLI) | payer MEDICARE, SELFPAY ==
[2024-02-23 09:29] LABS: Add Manual Diff / Slide Review NO; Basophils Absolute Auto 100 /uL (0-100); Basophils Percent Auto 1.2 % (0-2); Eosinophils Absolute Auto 200 /uL (0-450); Eosinophils Percent Auto 3.3 % (2-4); Hematocrit 41.6 % (36-46); Hemoglobin 13.9 g/dL (12.0-16.0); Lymphocytes Absolute Auto 1800 /uL (1100-4500); Lymphocytes Percent Auto 32.5 % (25-40); Mean Corpuscular HGB Conc 33.4 % (30-36); Mean Corpuscular Hemoglobin 31.4 PG (26-34); Mean Corpuscular Volume 93.9 fL (80-100); Monocytes Absolute Auto 600 /uL (0-900); Monocytes Percent Auto 10.8 % (3-14); Neutrophils Absolute Auto 2800 /uL (1500-7000); Neutrophils Percent Auto 52.2 % (50-75); Platelet Count 268 X10^3/uL (150-400); Red Blood Cell Count 4.43 X10^6/uL (4.0-5.2); Red Cell Distribution Width 14.2 % (11.6-14.8); White Blood Cell Count 5.4 X10^3/uL (4.5-11.0)
[2024-02-23 09:37] LABS: Alanine Aminotransferase 27 IU/L (<35); Albumin 4.4 g/dL (3.5-5.0); Albumin Globulin Ratio 2.3 (1.0-2.8); Alkaline Phosphatase 96 U/L (38-126); Aspartate Aminotransferase 37 IU/L (14-36); BUN Creatinine Ratio 17.2 (6-22); Bilirubin Total 0.5 mg/dL (0.2-1.3); Blood Urea Nitrogen 15 mg/dL (7-17); Calcium 9.5 mg/dL (8.4-10.2); Carbon Dioxide 27 mmol/L (22-32); Chloride 103 mmol/L (98-107); Cholesterol 260 mg/dL (140-199); Estimated Glomerular Filt Rate > 60 mL/min (>60); Globulin 1.9 g/dL (1.7-4.1); Glucose 102 mg/dL (80-110); HDL Cholesterol 102 mg/dL (40-60); HEMOLYSIS < 15 (0-50); LDL Cholesterol Calculated 141 mg/dL (<100); Potassium 4.4 mmol/L (3.4-5.1); Sodium 134 mmol/L (137-145); Total Protein 6.3 g/dL (6.3-8.2); Triglycerides 84 mg/dL (35-150)
[2024-02-23 10:01] LABS: Thyroid Stimulating Hormone 2.77 uIU/mL (0.47-4.68)
== END ==
PROVIDERS: Family Provider Family Medicine; PCP Family Medicine; Referring Provider Family Medicine; Visit Provider Family Medicine
DX: I47.10 Supraventricular tachycardia, unspecified (principal); E78.5 Hyperlipidemia, unspecified
CPT/HCPCS: 36415; 80053; 80061; 84443; 85025

== ENCOUNTER → 2024-03-10 15:28 | Outpatient (CLI) | payer MEDICARE, SELFPAY ==
--- NOTE | 2024-03-10 15:29 | DI.MG.S_ITS ---
BILATERAL DIGITAL SCREENING MAMMOGRAM 3D/2D WITH CAD: 03/10/2024 CLINICAL: Routine screening. Comparison is made to exams dated: 01/15/2023 mammogram, 12/03/2021 mammogram, and 11/09/2020 mammogram - [facility]. The breasts are heterogeneously dense, which may obscure small masses (category c / 51-75% glandular tissue). Current study was also evaluated with a Computer Aided Detection (CAD) system. No significant masses, calcifications, or other findings are seen in either breast. There has been no significant interval change. IMPRESSION: NEGATIVE There is no mammographic evidence of malignancy. A 1 year screening mammogram is recommended. Based on the Tyrer Cuzick model (a risk assessment model) the patient's lifetime risk is 10.2% and her 10 year risk is 5.3%. According to the ACR, ACS, and NCCN guidelines, an annual breast MRI exam along with mammogram is recommended if the patient's lifetime risk is 20% or greater. This exam was interpreted at Station ID: [id number]. NOTE: For mammograms, a report in lay terms will be sent to the patient. Approximately 15% of breast malignancies will not be visualized mammographically. In the management of a palpable breast mass, a negative mammogram must not discourage biopsy of a clinically suspicious lesion. Electronically Signed By: Richard gauthier/loree:03/12/2024 09:52:29 letter sent: Normal Exam ACR BI-RADS Category 1: Negative
== END ==
LOC: MAMMO 15:28
PROVIDERS: Family Provider Family Medicine; PCP Family Medicine; Referring Provider Family Medicine; Visit Provider Family Medicine
DX: Z12.31 Encounter for screening mammogram for malignant neoplasm of breast (principal); R92.333 Mammographic heterogeneous density, bilateral breasts
CPT/HCPCS: 77063; 77067

== ENCOUNTER → 2024-10-26 09:10 | Outpatient (CLI) | payer MEDICARE, SELFPAY ==
--- NOTE | 2024-10-26 09:11 | DI.MRI.S_ITS ---
PROCEDURE: MR LUMBAR SPINE WO CON INDICATIONS: chronic lower back pain TECHNIQUE: Noncontrast sagittal T1 spin echo and T2 fast echo, sagittal STIR, and T2 fast spin echo through the lumbar spine. In cases with scoliosis, additional coronal T2 fast spin echo may be performed. COMPARISON: [facility], MR, MR LUMBAR SPINE WO CON, 10/26/2020, 17:44. FINDINGS: Image quality: Excellent. Some images are limited by patient motion artifacts, decreased [id number] or other artifacts. Alignment and Curvature: Coronal drafter marine images demonstrate mild dextroscoliosis of the lower lumbar spine centered at approximately L4 some of which may be artifact from positioning or related to muscle spasm, degenerative changes or other cause. Again noted is grade 1-2 spondylolisthesis/spondylolysis at L4 on L5 and L5-S1 unchanged. Bone Marrow: Marrow is of normal overall signal. No acute vertebral body compression fractures. Spinal Cord: Conus medullaris terminates at the L1-2 level. Visualized cord demonstrates normal signal and size. T12-L1: Normal appearance. L1-L2: Normal appearance. L2-L3: Degenerative disc disease with disc desiccation unchanged. Mild facet osseous and ligamentous hypertrophic changes with mild bilateral neural foraminal narrowing unchanged. No central stenosis. No disc protrusion. L3-L4: Degenerative disc disease with disc desiccation. [id number] facet osseous and ligamentous hypertrophic changes with mild bilateral neural foraminal narrowing. No central stenosis, no disc protrusion. L4-L5: Pseudodisc and degenerative disc disease with circumferential diffuse disc bulge and severe facet osseous and ligamentous hypertrophic changes which contribute to severe left and moderate right neural foraminal narrowing and moderate central stenosis similar to the prior exam. Again noted is the bilateral increased facet joint fluid with left facet joint cyst posteriorly unchanged. L5-S1: Degenerative disc disease with disc desiccation, disc height loss, moderate facet osseous and ligamentous hypertrophic changes with mild increased bilateral facet joint fluid and moderate to severe right, moderate left neural foraminal narrowing mildly progressed. Extensive sacral Tarlov cysts are noted with widening of the bilateral S1-S2, S2-3, S3-4 neural foramina and extension of cysts off the lateral margin of the images similar to the prior exam. IMPRESSION: Multilevel degenerative changes as discussed above most notably L3- 4, L4-5 and L5-S1 mildly progressed. Extensive bilateral sacral Tarlov cysts as discussed above. Bilateral facet joint fluid and L4-5 left facet cyst similar to the prior exam. REFERENCE DELETE FROM FINAL REPORT Less common manifestations of disc degeneration: * dorsal epidural disc herniation. * intradural disc herniation (may have beaklike morphology). * symptomatic thoracic herniation: often, calcified, intradural. * far lateral disc herniation. * discal cyst: may have blood-fluid level. * fibrocartilaginous embolism of disc material to spinal cord. * calcified disc or bony spicule causing spinal CSF leak. Lumbar disc nomenclature v2.0: Recommendations of the combined task forces of the [place] [employer], [place] [employer], and [place] [employer]ad[employer] Annular fissures: seen as high intensity zones on MRI. Concentric, radial, transverse. Degeneration encompasses: desiccation, fibrosis, disc narrowing, diffuse bulge, fissuring, mucinous degeneration of annulus, intradiscal gas, vertebral apophyseal osteophytes, end plate defects, inflammatory changes and sclerosis (Modic types I-III). Disc herniation: localized or focal displacement of disc material less than 25% (90 degrees) of disc periphery on axial images. Diffuse bulging and asymmetric bulging (>25%) are not considered herniation. * Protrusion, extrusion, sequestration. * Disc fragment can migrate (refers only to position, not contiguity). * Intravertebral herniations (aka Schmorl nodes). * Herniations may be contained (if covered by intact outer annulus and/or PLL) vs uncontained. Subligamentous is considered synonymous with contained. A sequestered and/or migrated disc fragment can still be contained. Canal and foraminal stenosis: use 2-D measurements at site of most marked compromise. * Mild: canal compromise of less than 1/3. * Moderate: canal compromise of 1/3 to 2/3. * Severe: canal compromise of greater than 2/3. Location descriptors: * Central, right/left central, right/left subarticular, right/left foraminal, right/left extraforaminal or far lateral. Right/left central should supersede paracentral (a more general term). * In sagittal plane: discal, infrapedicular, suprapedicular, or pedicular. Dictated by: Rick Mathew M.D. on 10/27/2024 at 13:36 Approved by: Rick Mathew M.D. on 10/27/2024 at 13:53
== END ==
PROVIDERS: Family Provider Family Medicine; PCP Family Medicine; Referring Provider Family Medicine; Visit Provider Family Medicine
DX: M51.16 Intervertebral disc disorders with radiculopathy, lumbar region (principal); M51.17 Intervertebral disc disorders with radiculopathy, lumbosacral region; M48.061 Spinal stenosis, lumbar region without neurogenic claudication; M48.07 Spinal stenosis, lumbosacral region; M47.26 Other spondylosis with radiculopathy, lumbar region; M47.27 Other spondylosis with radiculopathy, lumbosacral region; M43.16 Spondylolisthesis, lumbar region; M43.17 Spondylolisthesis, lumbosacral region; G96.191 Perineural cyst; M53.86 Other specified dorsopathies, lumbar region; M25.48 Effusion, other site; G89.29 Other chronic pain
CPT/HCPCS: 72148

== ENCOUNTER → 2025-01-25 19:38 | Outpatient (CLI) | payer MEDICARE, SELFPAY ==
--- NOTE | 2025-01-25 19:42 | DI.MRI.S_ITS ---
PROCEDURE: MR CERVICAL SPINE WO CON INDICATIONS: Spinal stenosis, cervical region TECHNIQUE: Noncontrast sagittal T1 spin echo and T2 fast spin echo, sagittal STIR, foraminal oblique sagittal T2 fast spin echo, and axial gradient echo or T2 fast spin echo through the cervical spine. COMPARISON: None. FINDINGS: Image quality: Excellent Straightening of the cervical spine. Mild anterolisthesis of C2 on C3, C3 on C4. Mild to moderate anterolisthesis of C4 on C5. Mild anterolisthesis of C6 on C7. Vertebral body height of the cervical spine are well maintained. Marrow signal is normal for age. Multilevel disc bulge and disc desiccation. Cervical cord: Normal in signal. Right neural foraminal stenosis: Mild at C3-4, C5-6. Left neural foraminal stenosis: Mild at C3-4. Mild at C6-7. Axial images: C2-3: Moderate bilateral facet arthropathy. No central canal stenosis. C3-4: Mild right, severe left facet arthropathy. No central canal stenosis. C4-5: Posterior disc uncovering. Moderate bilateral facet arthropathy. No central canal stenosis. C5-6: Mild disc bulge. Mild bilateral facet arthropathy. Mild uncovertebral arthropathy. No central canal stenosis. C6-7: Posterior disc osteophyte complex. Mild right, moderate left facet arthropathy. No central canal stenosis. C7-T1: No central canal stenosis. Multiple bilateral perineural cysts are noted in the lower cervical spine, and at the cervical thoracic junction. other soft tissue findings: None. IMPRESSION: 1. Multilevel mild neural foraminal stenosis in the cervical spine. No central canal stenosis in the cervical spine. Dictated by: Krystyna Gonzalez M.D. on 01/26/2025 at 10:10 Approved by: Krystyna Gonzalez M.D. on 01/26/2025 at 10:20
== END ==
PROVIDERS: Family Provider Family Medicine; PCP Family Medicine; Referring Provider Neurological Surgery; Visit Provider Neurological Surgery
DX: M48.02 Spinal stenosis, cervical region (principal); M43.12 Spondylolisthesis, cervical region; M47.812 Spondylosis without myelopathy or radiculopathy, cervical region; M50.322 Other cervical disc degeneration at C5-C6 level; G96.191 Perineural cyst
CPT/HCPCS: 72141